=== PATIENT | male | born 1955 | race Caucasian/White ===

== ENCOUNTER 2018-10-19 11:11 | Outpatient (CLI) | payer SELFPAY ==
[2018-10-19 13:26] LABS: BUN 12 mg/dL (7-18); CREATININE 1.15 mg/dL (0.70-1.30); Calcium 9.2 mg/dL (8.5-10.1); Chloride 102 mmol/L (98-107); Cholesterol 238 mg/dL (50-200); Glucose 90 mg/dL (70-100); HDL Cholesterol 34 mg/dL (40-60); LDL CHOLESTEROL 171 mg/dL (<100); Potassium 4.5 mmol/L (3.5-5.1); Sodium 138 mmol/L (136-145); Triglyceride 134 mg/dL (30-150)
== END 2018-10-19 11:31 ==
PROVIDERS: PCP Family Medicine; Visit Provider Family Medicine
DX: I10 Essential (primary) hypertension (principal)
CPT/HCPCS: 36415; 80048; 80061; 83721

== ENCOUNTER 2019-07-12 11:02 | Outpatient (CLI) | payer MEDICARE, SELFPAY ==
[2019-07-12 12:55] LABS: CREATININE 0.99 mg/dL (0.70-1.30); Potassium 3.9 mmol/L (3.5-5.1)
== END 2019-07-12 11:22 ==
PROVIDERS: PCP Family Medicine; Visit Provider Family Medicine
DX: I10 Essential (primary) hypertension (principal)
CPT/HCPCS: 36415; 82565; 84132

== ENCOUNTER 2020-01-14 11:30 | Emergency (ER) | payer MEDICARE, SELFPAY ==
[2020-01-14] VITALS (36 sets, daily range): BP systolic 128–163; BP diastolic 71–90; PULSE 76–110; RESP 7–28; TEMP 36.6–36.8; O2SAT 87–98
--- NOTE | 2020-01-14 11:45 | DI.RAD_ITS ---
EXAM: XR CHEST 2V PA LATERAL CLINICAL HISTORY: fall, lightheaded, ? syncope TECHNIQUE: COMPARISON: No exams were available for comparison FINDINGS: The heart is not enlarged. The lungs are predominantly clear with mild changes of scarring. No pleu ral effusion. No pneumothorax. IMPRESSION: No evidence of acute process.
--- NOTE | 2020-01-14 11:45 | DI.CT_ITS ---
EXAM: CT HEAD WO CLINICAL HISTORY: Fall, trauma, ? syncope TECHNIQUE: COMPARISON: No exams were available for comparison FINDINGS: Noncontrast cranial CT was performed. There is moderate generalized cerebral atrophy. There are pro bable small bilateral lacunar infarcts of the basal ganglia. No evidence of acute intracranial hemor rhage, mass effect, or midline shift. IMPRESSION: No evidence of acute intracranial process.
--- NOTE | 2020-01-14 11:49 | ED.GENADUL_ITS ---
Discharge Plan Disposition Patient Disposition: HOME Condition: Improving Discharge Details Chief Complaint: Dizzy/Sync Clinical Impression: Acute dehydration Primary Care Provider: Tomer Yang ED Provider: Michael Robles Home Meds and New Rx's Prescriptions: No Action amlodipine 5 mg tablet 5 mg PO DAILY Qty: 90 RF: 3 telmisartan-hydrochlorothiazid 80-12.5 mg tablet 1 tab PO DAILY Qty: 90 RF: 3 Discharge Instructions Instructions: Dehydration (ED) Additional Instructions: Please skip 1 dose of your telmisartan/hydrochlorothiazide. We will ask our care management team to make you a follow-up appointment in clinic with Dr. Glez to recheck blood pressure as well as kidney function. Small, frequent sips of fluids to maintain hydration. Return to the emergency department for any acute concern. Medical Decision Making 64-year-old male states he was sitting at his dinner table this morning when he felt lightheaded and then sank to the floor. Unsure if he had true loss of consciousness. There was report of previous episodes in the past but the patient denies this to me. States his been taking his medications as prescribed. He notes that he had loose watery stool this morning. He arrives with a temp of 36.8, pulse 98, normal oxygenation. Orthostatic vital signs: Not positive with blood pressure proximally 140/80. Since June of last year his creatinine is gone from 0.9-1.38 today. Remainder of labs notable for sodium of 135, anion gap of 14.6. Albumin normal and troponin negative. Chest x-ray/CT scan head: NAD/no acute intracranial abnormality. After 1 L of fluid, patient felt improved. Chemistries were rechecked with closure of his gap and normalization of sodium. I will have the patient hold 1 day of his combination telmisartan/hydrochlorothiazide. We will arrange for an outpatient follow-up in clinic to recheck and to ensure renal function returns to normal with his current antihypertensive regimen. ECG Data Attestation: I personally reviewed and interpreted this ECG (s) as follows: Prior ECG tracings: not available for review Interpretation: Normal sinus rhythm with a rate of 96, the QRS is narrow, there is no ST segment elevation, there is note of isolated T wave inversion in lead III. HPI General Mode of arrival: EMS . Date/Time Provider Initiated Documentation: 01/14/20 11:56 . Limitations to Documentation: no limitations . Information obtained by: patient and EMS . History of Present Illness 64 year old M presents to the emergency department with the chief complaint of Near syncope at home, struck head., Quality is described as dull, and is localized to the head. Patient reports no radiation. Patient started experiencing this minute(s) and it has been now resolved. No relieving factors improve symptom(s), No exacerbating factors reported . Patient notes other (Unsure if he had brief loss of consciousness, no chest pain or shortness of breath, denies palpitations. Diarrhea this morning); denies chest pain, nausea/vomiting and shortness of breath. Patient did receive the following treatments prior to arrival, none Related Data Home Medications Medication Instructions Recorded Confirmed amlodipine 5 mg tablet 5 mg PO DAILY #90 tab 04/07/19 01/14/20 telmisartan 80 1 tab PO DAILY #90 tab 04/07/19 01/14/20 mg-hydrochlorothiazide 12.5 mg tablet Previous Rx's Medication Instructions Recorded amlodipine 5 mg tablet 5 mg PO DAILY #90 tab 04/07/19 telmisartan 80 1 tab PO DAILY #90 tab 04/07/19 mg-hydrochlorothiazide 12.5 mg tablet Allergies Allergy/AdvReac Type Severity Reaction Status Date / Time oxycodone Allergy Severe off the Unverified 01/14/20 11:28 wall Penicillins Allergy Severe Unverified 01/14/20 11:28 Sulfa (Sulfonamide Allergy Unknown Unverified 01/14/20 11:28 Antibiotics) General Stated Complaint: Dizzy/Sync KJ: 2 Review of Systems Narrative: Denies to me that he has had previous episodes of syncope. He states his been taking his medications at bedtime. [place] well this morning but had lo ose watery stool. 6 systems reviewed and otherwise negative. [facility] Medical History Essential hypertension (Acute) Family History Mother Neoplasm BREAST Father Neoplasm PROSTATE Sister Neoplasm HIPS Sister Heart murmur Neoplasm BREAST Grandmother Heart disease Stroke Social History Smoking/Tobacco Use Status: Never Drug use: Rarely Substance use type: marijuana Do you feel safe at home: Yes Do you feel safe in your relationship?: Yes Exam Narrative Exam Narrative: GEN: awake, alert, oriented 3. Pleasant, well groomed, interactive. HEAD: Normocephalic, abrasions left vertex, no scalp laceration ENT: Mucous membranes moist, nasal bridge abrasion, no midface instability or tenderness, oropharynx unremarkable, External ear exam unremarkable EYES: PERRL, EOMI NECK: Full ROM, no JAMIE, no menigismus CHEST/RESP: Nontender, clear to auscultation bilateral, no wheeze/rhonchi/rales CARDIOVASCULAR: RRR, no murmur, rub nicolas. 2+ Rad pulse bilateral ABDOMEN: Soft, nontender, no mass. +Bowel sounds EXT: Full ROM, no edema, no rash Neuro: Grossly normal neurologic exam, conversant, interactive. Psych: Speech fluent, thoughts congruent, affect normal Course Vital Signs Vital signs: Vital Signs Temperature 36.8 C 01/14/20 11:32 Pulse 98 H 01/14/20 11:32 Respiratory Rate 20 01/14/20 11:32 Pulse Oximetry 94 L 01/14/20 11:32 Temperature 36.8 C 01/14/20 11:32 Temperature Source Temporal Artery Scan 01/14/20 11:32 Pulse 98 H 01/14/20 11:32 Respiratory Rate 20 01/14/20 11:32 Respiratory Effort Non-Labored 01/14/20 11:37 Blood Pressure Position Supine 01/14/20 11:32 Pulse Oximetry 94 L 01/14/20 11:32 Oxygen Delivery Method Tent 01/14/20 11:32 Oxygen Flow Rate 0 01/14/20 11:32 Pain Level 0 01/14/20 11:32
[2020-01-14] MEDS: Normal Saline 500 ML IV ×2 (11:55→12:30)
[2020-01-14 12:10] LABS: Abs Immature Grans 0.03 k/cumm (0.0-0.09); Absolute Basophil Count 0.01 k/cumm (0.0-0.2); Absolute Eosinophil Count 0.06 k/cumm (0.0-0.7); Absolute Lymphocyte Count 1.02 k/cumm (1.2-3.4); Absolute Monocyte Count 0.49 k/cumm (0.11-0.7); Absolute Neutrophil Count 4.93 k/cumm (1.2-6.7); Basophils % 0.2; Eosinophils % 0.9; HCT 42.3 % (40.0-50.0); HGB 14.1 g/dL (13.5-17.5); Immature Grans % 0.5 %; Lymphocytes % 15.6; Mean Corp. HGB Concentration 33.3 g/dL (32.0-36.0); Mean Corpuscular Hemoglobin 29.9 pg (27.0-33.0); Mean Corpuscular Volume 89.8 fL (80-95); Mean Platelet Volume 8.2 fL (8.0-11.0); Monocytes % 7.5; Neutrophils % 75.3; Platelet Count 373 x1000/uL (130-400); RBC 4.71 m/cumm (4.50-6.00); RBC Distribution Width 13.8 % (11.8-14.1); White Blood Cell Count 6.54 k/cumm (4.4-10.8)
[2020-01-14 12:25] LABS: ALT 33 U/L (16-63); AST 37 U/L (15-37); Albumin 3.7 g/dL (3.4-5.0); Alkaline Phosphatase 85 U/L (46-116); Anion Gap 14.6 mmol/L (3-11); BUN 14 mg/dL (7-18); Bilirubin, Total 0.6 mg/dL (0.2-1.0); CO2 21.4 mmol/L (21.0-32.0); CREATININE 1.38 mg/dL (0.70-1.30); Calcium 9.1 mg/dL (8.5-10.1); Chloride 99 mmol/L (98-107); Estimated GFR 51.71 (mL/min/1.73m2); Glucose 182 mg/dL (74-106); Magnesium 2.2 mg/dL (1.8-2.4); Potassium 4.2 mmol/L (3.5-5.1); Sodium 135 mmol/L (136-145); Total Protein 7.9 g/dL (6.4-8.2)
[2020-01-14 12:29] LABS: Troponin I < 0.05 ng/Ml (<0.06)
--- NOTE | 2020-01-14 13:10 | DI.VRAD_ITS ---
PROCEDURE INFORMATION: Exam: CT Head Without Contrast Exam date and time: 01/14/2020 11:50 AM Age: 64 years old Clinical indication: Injury or trauma; Fall; Dizziness and syncope and collapse TECHNIQUE: Imaging protocol: Computed tomography of the head without contrast. COMPARISON: No relevant prior studies available. FINDINGS: Brain: Central and cortical brain atrophy evident, appropriate for patient age. There is nonspecific periventricular low attenuation, likely microangiopathic disease. No acute intracranial hemorrhage. Ventricles: Normal. No ventriculomegaly. Bones/joints: Unremarkable. No acute fracture. Sinuses: Visualized sinuses are unremarkable. No fluid levels. Mastoid air cells: Visualized mastoid air cells are well aerated. Soft tissues: Unremarkable. IMPRESSION: No acute intracranial abnormality. Dictated and Authenticated by: Ilsa Christopher MD. Ordering:BREE Rodriguez MD
--- NOTE | 2020-01-14 13:12 | DI.VRAD_ITS ---
PROCEDURE INFORMATION: Exam: XR Chest, 2 Views Exam date and time: 01/14/2020 12:17 PM Age: 64 years old Clinical indication: Other: Fall, lightheaded, syncope ? TECHNIQUE: Imaging protocol: XR of the chest Views: 2 views. COMPARISON: No relevant prior studies available. FINDINGS: Lungs: Unremarkable. No consolidation. Pleural space: Unremarkable. No pleural effusion. No pneumothorax. Heart/Mediastinum: Unremarkable. No cardiomegaly. Bones/joints: Unremarkable. IMPRESSION: No acute findings. Dictated and Authenticated by: Ilsa Christopher MD. Ordering:BREE Rodriguez MD
[2020-01-14] MEDS: Acetaminophen 500 MG TAB 1000 MG PO (13:46)
[2020-01-14 13:57] LABS: BUN 14 mg/dL (7-18); CREATININE 1.14 mg/dL (0.70-1.30); Calcium 8.2 mg/dL (8.5-10.1); Chloride 103 mmol/L (98-107); Glucose 131 mg/dL (74-106); Potassium 3.8 mmol/L (3.5-5.1); Sodium 137 mmol/L (136-145)
--- NOTE | 2020-01-14 15:02 | NUR.NOTE ---
Nursing Note: Referral faxed to PCP for follow up. Virgen Christian.
== END 2020-01-14 14:53 | disposition home or self-care (01) ==
PROVIDERS: Emergency Provider Emergency Medicine; PCP Family Medicine
DX: E86.0 Dehydration (principal); R19.7 Diarrhea, unspecified; I10 Essential (primary) hypertension
CPT/HCPCS: 36415; 80048; 80053; 93005; 96360; 96361; 99284; 70450; 71046; 83735; 84484; 85025; 93010

== ENCOUNTER 2020-02-06 04:17 | Emergency (ER) | payer MEDICARE, SELFPAY ==
[2020-02-06] VITALS (31 sets, daily range): BP systolic 100–132; BP diastolic 56–95; PULSE 81–125; RESP 10–35; TEMP 37–38.3; O2SAT 86–100
[2020-02-06 05:00] LABS: BE (Venous) -6.8 mmol/L (-3-3); HCO3 (Venous) 18 mmol/L (22-28); O2 Sat (Venous) 91 % (70-80); TCO2 (Venous) 16 mmol/L (22-29); pCO2 (Venous) 27 mm/Hg (34-47); pH (Venous) 7.42 (7.35-7.45); pO2 (Venous) 55 mm/Hg (28-44)
[2020-02-06 05:04] LABS: Lactate 9.8 mmol/L (0.6-1.4)
[2020-02-06] MEDS: Normal Saline 500 ML IV (05:05)
--- NOTE | 2020-02-06 05:05 | DI.RAD_ITS ---
EXAM: XR PORTABLE CHEST AP CLINICAL HISTORY: intubation TECHNIQUE: 2D digital imaging was performed. COMPARISON: No exams were available for comparison FINDINGS: MEDIASTINUM: Normal. HEART: Normal. PULMONARY VASCULATURE: Normal. LUNGS: There are infiltrates seen in the lower lobes bilaterally. PLEURAL SPACE: No pleural effusion or pneumothorax. BONE:Degenerative changes are seen in the spine. OTHER FINDINGS:Tip of the endotracheal tube is 4.6 cm above the rm. IMPRESSION: Bilateral basilar infiltrates. This may represent atelectasis or pneumonia. DATA REPOSITORY: RADIATION DOSE DELIVERED:
[2020-02-06] MEDS: PROPOFOL 1,000 MG/100 ML BTL 9.7 MG (05:06)
[2020-02-06 05:11] LABS: Salicylate < 2.8 mg/dL (2.8-20.0)
[2020-02-06 05:13] LABS: Acetaminophen < 2 ug/mL (10-30); Ammonia 27 umol/L (11-32)
[2020-02-06 05:14] LABS: PTT Activated 36.3 sec (21.0-31.4); Prothrombin Time 10.3 sec (9.3-11.0)
[2020-02-06 05:15] LABS: Abs Immature Grans 0.03 k/cumm (0.0-0.09); Absolute Basophil Count 0.02 k/cumm (0.0-0.2); Absolute Lymphocyte Count 0.52 k/cumm (1.2-3.4); Basophils % 0.3; HCT 34.3 % (40.0-50.0); HGB 12.4 g/dL (13.5-17.5); Immature Grans % 0.4 %; Lymphocytes % 6.9; Mean Corp. HGB Concentration 36.2 g/dL (32.0-36.0); Mean Corpuscular Hemoglobin 29.9 pg (27.0-33.0); Mean Corpuscular Volume 82.7 fL (80-95); Mean Platelet Volume 8.6 fL (8.0-11.0); Monocytes % 11.9; Neutrophils % 80.5; Platelet Count 199 x1000/uL (130-400); RBC 4.15 m/cumm (4.50-6.00); RBC Distribution Width 12.6 % (11.8-14.1); White Blood Cell Count 7.57 k/cumm (4.4-10.8)
[2020-02-06 05:20] LABS: ETHANOL BLOOD < 3.0 mg/dL (<3); NT-proBNP 308 pg/mL (<300); TSH (W/Ref FT4) 0.93 uIU/mL (0.36-3.74)
--- NOTE | 2020-02-06 05:22 | ED.GENADUL_ITS ---
Discharge Plan Disposition Patient Disposition: [facility] Condition: Critical Discharge Details Chief Complaint: Seizure Clinical Impression: Seizure, Acute hyponatremia, Non-ST elevation LA (NSTEMI), Acute respiratory failure, Obtundation, C2 cervical fracture Primary Care Provider: Tomer Yang ED Provider: Igor Noel Home Meds and New Rx's Prescriptions: No Action amlodipine 5 mg tablet 5 mg PO DAILY Qty: 90 RF: 3 telmisartan-hydrochlorothiazid 80-12.5 mg tablet 1 tab PO DAILY Qty: 90 RF: 3 Discharge Data Discharge Date/Time-TO BE ENTERED AT DEPARTURE: 02/06/20 07:27 Medical Decision Making Upon my evaluation, this patient had a high probability of imminent or life-threatening deterioration, which required my direct attention, intervention, and personal management. I have personally provided 75 minutes of critical care time exclusive of time spent on separately billable procedures. Time includes review of laboratory data, radiology results, discussion with consultants, and monitoring for potential decompensation. Interventions were performed as documented. 64-year-old male with a past medical history of hypertension, presents for evaluation of seizure. EMS was contacted when the patient's roommate heard a side, he found him having a seizure in the bathroom. Blood sugar was normal, the patient was given a total of 10 Versed IM, brought to the ED. Upon arrival to the ED patient's GCS was noted to be 3, no airway protection or gag reflex. He was breathing spontaneously. The patient's roommate did note that for the past 2 days both the roommate and the patient had been suffering from a fever and what they assumed was a viral illness. The patient's roommate denies any recent foreign travel or contact with recent immigrants, Travelers, or peoples of [place] or [facility]. The patient's roommate denies any recent travel to high risk countries or high risk areas in the [place], or other areas of noted or significant coronavirus infection. Physical exam shows no signs of significant trauma, poor dentition in the mouth is present, reflexes are intact in the lower extremities, no asterixis. Kernig's is negative, pupils are pinpoint minimally reactive. Differential is broad but includes meningitis, trauma, cardiac, viral infectious etiology, influenza, less likely coronavirus. Will maintain CDC recommended precautions, as the GCS is 3 will intubate and evaluate for other etiologies. 5:15 AM Patient was intubated successfully without complication, chest x-ray shows in place endotracheal tube, there does appear to be infiltrates, I am concerned that this may be secondary to aspiration as was a small amount of vomitus noted in the posterior oropharynx on intubation attempt. EKG demonstrates 3 mm elevation in V2, T wave inversion and mild depression in lead III, both findings are new. Does not meet criterion for STEMI, but certainly concerning for cardiac etiology. Will give rectal aspirin. Cardiology was contacted at [facility], they to are concerned and recommend transfer. Bedside limited cardiac ultrasound demonstrates notable decreased EF, mild to minimal motility throughout the ventricles, mild bulging of the septal wall towards the right ventricle. No evidence of significant pericardial effusion. Tmp Campbell demonstrates temperature of 101 Fahrenheit. 5:45 AM Patient is currently sedated on propofol, remaining stable, [facility] was called initially, influenza testing has returned and is negative. Upon [facility] arrival to the ED they were informed by their incident command center that they are not to be transporting the patient as there is potential that he could have covert 19. I feel that this is notably an extremely unlikely, I did make this known to [facility] staff, transfer center, and [facility] critical care team, however they state that per protocol the safest process would be to transport by ground. [facility] will not be available for quite some time, [facility] is not available for transport, [facility] will transport patient at 640 6:55 AM. Patient's laboratory work-up has started to return, troponin is elevated 0.37, sodium is notably low at 115, patient will be given 100 mL of hypertonic saline over 10 minutes, followed by 100 mL over 1 hour. Unfortunately we are not able to get hypertonic saline immediately here secondary to the time of night, [facility] their bag of hypertonic saline for use. Patient does have a penicillin and sulfa allergy. Differential still does include viral etiology and although his flu test is negative I do feel he may certainly be suffering from influenza. We will give Tamiflu, but in conjunction for concern of potential meningitis as well or encephalitis we will add vancomycin, aztreonam, doxycycline, and acyclovir. However [facility] has accepted the patient under Dr. Prieto, and does not recommend transferring by ground until room confirmation. We will also give 2 g of Keppra. [address] scan results have returned, per virtual radiology CT head demonstrates questionable vascular channels of the C2 body versus a left lateral mass, faint left-sided lateral mass fracture lines cannot be excluded completely. Will maintain C-spine precautions. No evidence of acute intracranial bleed or hemorrhage noted otherwise. CT scan of the chest demonstrates mild there is a consolidation at the bases and posterior right upper lobe which may represent subsegmental atelectasis versus evolving pneumonia or aspiration. Will maintain current plan. Lactate is 9.8, were gently giving fluids especially with the decreased motility noted on bedside echo. We will get urine sodium. 6:53 AM Bed placement has been confirmed, he will now be going directly to the emergency department per [facility]. Patient remains hemodynamically stable on the vent. No indication for pressors at this time, medications are being administered. I have extensively reviewed the treatment plan with the patient. I have addressed all patient concerns at this time. I have also discussed the plan with the admitting physician and they agree with the current assessment and plan and have agreed to assume responsibility for the patient. All parties demonstrate verbal understanding and agreement with our assessment and plan at this time. EKG 4: 41 Rate 98, CT 180, QTc 467, QRS 102, sinus rhythm, 2 to 3 mm of elevation in V2, concerning for to him stoning as well. T wave inversion with 1 mm of depression noted in lead III. No other significant ST elevations or depressions. EKG reviewed with [facility]ology [facility]. FINDINGS: Vertebrae: Faint fracture lines in the left C2 lateral mass not excluded Vascular channels noted in the C2 body and left lateral mass Loss of cervical lordosis is presumably on a degenerative basis. Discs/Spinal canal/Neural foramina: Multilevel central canal and foraminal stenosis most pronounced at C3-C4 and C5-C6 Soft tissues: Unremarkable. Endotracheal tube partially visualized IMPRESSION: Vascular channels in the C2 body and left lateral mass. Faint left-sided lateral mass fracture lines cannot be completely excluded. Comparison with prior images would be helpful. Consider further evaluation with MRI as clinically indicated Multilevel degenerative changes as noted Thank you for allowing us to participate in the care of your patient. Dictated and Authenticated by: Mathew Mendez MD 02/06/2020 6:02 AM Eastern Time ([place] & [place]) FINDINGS: Brain: Mild volume loss No hemorrhage. Mild white matter disease. No mass effect. Ventricles: Normal. No ventriculomegaly. Bones/joints: Unremarkable. No acute fracture. Sinuses: Visualized sinuses are unremarkable. No fluid levels. Mastoid air cells: Visualized mastoid air cells are well aerated. Soft tissues: Left frontal scalp swelling IMPRESSION: No acute intracranial hemorrhage noted FINDINGS: Endotracheal tube tip 3.3 cm above the rm Lungs: Bibasilar and posterior right upper lobe areas of mild consolidation Pleural space: No pneumothorax. No pleural effusion. Heart: Moderate cardiomegaly. No pericardial effusion. Aorta: No aortic aneurysm. Lymph nodes: No enlarged lymph nodes. Bones/joints: Degenerative changes in the spine No acute fracture. Soft tissues: Minimal air in the right anterior chest wall says she slipped clavi in region may be related to central venous catheter attempt IMPRESSION: Endotracheal tube tip 3.3 cm above the rm Mild areas of consolidation at the bases and posterior right upper lobe which may represent subsegmental atelectasis versus evolving areas of pneumonia/aspiration Thank you for allowing us to participate in the care of your patient. Dictated and Authenticated by: Mathew Mendez MD 02/06/2020 6:05 AM Eastern Time ([place] & [place]) HPI General Date/Time Provider Initiated Documentation: 02/06/20 04:28 . HPI Narrative: 64-year-old male with a past medical history of hypertension, presents today by EMS for evaluation after seizure. Per EMS and the patient's roommate he was noted to be seizing 20 minutes prior to EMS arrival. No complaints before hand, no other abnormalities. He was here in the ED recently a few weeks ago, had mild hypertension at that time, mild acute kidney injury, on follow-up with his PCP 1 week ago his labs had normalized and he had a normal exam and an unremarkable visit. Uncertain if the patient has had any travel outside of the country but I doubt. Per EMS they gave initial 5 and then an additional 5 for total of 10 of Versed IM to stop the patient seizing. Per EMS report he was placed in a c-collar, and the patient was out responding to commands but was protecting his airway. Upon arrival patient's GCS was noted to be 3. No other complaints are known history. EMS reports no known trauma. Related Data Home Medications Medication Instructions Recorded Confirmed amlodipine 5 mg tablet 5 mg PO DAILY #90 tab 01/31/20 01/31/20 telmisartan 80 1 tab PO DAILY #90 tab 01/31/20 01/31/20 mg-hydrochlorothiazide 12.5 mg tablet Previous Rx's Medication Instructions Recorded amlodipine 5 mg tablet 5 mg PO DAILY #90 tab 01/31/20 telmisartan 80 1 tab PO DAILY #90 tab 01/31/20 mg-hydrochlorothiazide 12.5 mg tablet Allergies Allergy/AdvReac Type Severity Reaction Status Date / Time oxycodone Allergy Severe off the Unverified 02/06/20 04:59 wall Penicillins Allergy Severe Unverified 02/06/20 04:59 Sulfa (Sulfonamide Allergy Unknown Unverified 02/06/20 04:59 Antibiotics) General Stated Complaint: Seizure KJ: 2 Review of Systems All systems reviewed & are unremarkable except as noted in HPI and below PFSH Family History Mother Neoplasm BREAST Father Neoplasm PROSTATE Sister Neoplasm HIPS Sister Heart murmur Neoplasm BREAST Grandmother Heart disease Stroke Social History Smoking/Tobacco Use Status: Never Drug use: Rarely Substance use type: marijuana Do you feel safe at home: Yes Do you feel safe in your relationship?: Yes Exam Narrative Exam Narrative: 1.Const: Well-nourished, Well-developed, appearing stated age 2.Eyes: Pupils pinpoint bilaterally, minimally reactive, no conjunctival injection, and symmetrical lids. 3.ENT: Atraumatic external nose and ears. Moist MM. Neck: Symmetric, trachea midline, No thyromegaly. Patient is in C-spine precautions, poor dentition throughout. 4.CVS: +S1/S2, No murmurs or gallops. Peripheral pulses 2+ and equal in all extremities. Brisk capillary refill in all extremities. 5.RESP: Rapid respirations, unlabored respiratory effort. Clear to auscultation bilaterally. Questionable crackles in bases 6.GI: Soft, Nontender/Nondistended, No hepatosplenomegaly. No guarding or rebound. 7.MSK: Normocephalic/Atraumatic, Extremities w/o deformity or ttp No cyanosis or clubbing, no purposeful movements. 8.Skin: Warm, Dry. No rashes or lesions. No signs of significant trauma 9.Neuro: No purposeful movements, GCS of 3, spontaneous respirations are present, no gag reflex. +2 patellar reflexes bilaterally, negative Kernig sign, Brudzinski's not checked secondary to C-spine precautions Course Vital Signs Vital signs: Vital Signs Temperature 37 C 02/06/20 04:17 Pulse 101 H 02/06/20 04:17 Respiratory Rate 30 H 02/06/20 04:17 Blood Pressure 107/62 02/06/20 04:17 Pulse Oximetry 94 L 02/06/20 04:17 Temperature 37 C 02/06/20 04:17 Temperature Source Skin 02/06/20 04:17 Pulse 97 H 02/06/20 05:00 Pulse 120 H 02/06/20 05:01 Respiratory Rate 10 L 02/06/20 05:01 Respiratory Depth Deep 02/06/20 04:26 Respiratory Pattern Tachypnea 02/06/20 04:26 Blood Pressure 122/57 L 02/06/20 05:00 Blood Pressure Mean 73 02/06/20 05:00 Pulse Oximetry 95 02/06/20 05:01 Respiratory End-tidal CO2 20 02/06/20 05:01 Oxygen Delivery Method Non-Rebreather 02/06/20 04:17 Oxygen Flow Rate 15 02/06/20 04:17 Lab/Test Results Lab/Test Results: 02/06/20 04:30 Blood Blood Culture - Pending 02/06/20 04:30 Blood Blood Culture - Pending 02/06/20 04:36 Nasopharynx Influenza Types A,B Antigen - Pending 02/06/20 04:36 Urine - Bladder Aspirate Urine Culture - Pending Laboratory Tests Range/Units 02/06/20 02/06/20 02/06/20 04:25 04:25 04:25 PT (9.3-11.0) sec INR (0.9-1.1) APTT (21.0-31.4) sec VBG pH (7.35-7.45) 7.42 VBG pCO2 (34-47) mm/Hg 27 L VBG pO2 (28-44) mm/Hg 55 H VBG HCO3 (22-28) mmol/L 18 L VBG Total CO2 (22-29) mmol/L 16 L VBG O2 Saturation (70-80) % 91 H VBG Base Excess (-3-3) mmol/L -6.8 L Lactate (0.6-1.4) mmol/L Ammonia (11-32) umol/L 27 Salicylates (2.8-20.0) mg/dL < 2.8 Acetaminophen (10-30) ug/mL < 2 Range/Units 02/06/20 02/06/20 04:25 04:25 PT (9.3-11.0) sec 10.3 INR (0.9-1.1) 1.0 APTT (21.0-31.4) sec 36.3 H VBG pH (7.35-7.45) VBG pCO2 (34-47) mm/Hg VBG pO2 (28-44) mm/Hg VBG HCO3 (22-28) mmol/L VBG Total CO2 (22-29) mmol/L VBG O2 Saturation (70-80) % VBG Base Excess (-3-3) mmol/L Lactate (0.6-1.4) mmol/L 9.8 H* Ammonia (11-32) umol/L Salicylates (2.8-20.0) mg/dL Acetaminophen (10-30) ug/mL Procedures Intubation Time out performed: Yes sedative: Etomidate Mg Given: 20 paralytic: Rocuronium Mg Given: 100 Laryngoscope: fiberoptic video scope ET Tube Size: 7.5 ET Tube Uncuffed: Yes Tube Secured Depth (cm): 22 Tube Secured Location: teeth Tube Placement Confirmation: visualized tube passing through cords, equal breath sounds bilaterally and no breath sounds over epigastrum Patient Tolerated Procedure: well Intubation Complications: none Additional Comments: During intubation process there was a small amount of vomitus noted in the posterior oropharynx, concern for previous vomiting versus aspiration.
[2020-02-06 05:23] LABS: Bilirubin Negative (Negative); Blood Trace-intact (Negative); Clarity Clear (Clear); Glucose Negative (Negative); Ketones Negative (Negative); Leukocyte Esterase Negative (Negative); Nitrite Negative (Negative); Specific Gravity 1.025 (1.005-1.025); Urobilinogen 0.2 EU/dL (Up TO 0.2)
--- NOTE | 2020-02-06 05:23 | DI.VRAD_ITS ---
PROCEDURE INFORMATION: Exam: XR Chest, 1 View Exam date and time: 02/06/2020 5:09 AM Age: 64 years old Clinical indication: Device placement; Ett placement (vent status); Patient HX: Post intubation TECHNIQUE: Imaging protocol: XR of the chest Views: 1 view. COMPARISON: CR XR CHEST 2V PA LATERAL 01/14/2020 12:17 PM FINDINGS: Mildly limited due to rotation Endotracheal tube tip 4.6 cm above the rm. Mild peribronchial thickening/interstitial prominence and question vague right-sided middle lobe opacity. No significant pleural effusion or evidence for pneumothorax The heart, mediastinal and osseous structures are grossly stable IMPRESSION: Endotracheal tube tip 4.6 cm above the rm Question vague right middle lobe opacity Dictated and Authenticated by: Mathew Mendez MD. Ordering:KAYLA Costa MD
[2020-02-06 05:25] LABS: Bacteria Rare HPF (Negative); C & S Indicated? No; Casts Negative LPF (Negative); Crystals Negative HPF (Negative); Epithelial Cells Rare HPF (Negative); Mucus Negative (Negative); RBC 0-2 HPF (0-2); WBC Negative HPF (0-5)
[2020-02-06 05:28] LABS: ALT 24 U/L (16-63); AST 41 U/L (15-37); Albumin 2.7 g/dL (3.4-5.0); Alkaline Phosphatase 58 U/L (46-116); Anion Gap 20.2 mmol/L (3-11); BUN 10 mg/dL (7-18); Bilirubin, Total 0.5 mg/dL (0.2-1.0); CO2 16.8 mmol/L (21.0-32.0); Calcium 7.3 mg/dL (8.5-10.1); Chloride 78 mmol/L (98-107); Glucose 209 mg/dL (74-106); Magnesium 1.6 mg/dL (1.8-2.4); Potassium 3.6 mmol/L (3.5-5.1); Total Protein 6.5 g/dL (6.4-8.2)
[2020-02-06 05:28] LABS: *AMPHETAMINES SCREEN URINE Negative (Negative); *BARBITURATES SCREEN URINE Negative (Negative); *BENZODIAZEPINES SCREEN URINE Negative (Negative); Cannabinoids THC Negative (Negative); Cocaine Screen,Urine Negative (Negative); METHADONE URINE SCREEN Negative (Negative); OPIATES URINE SCREEN Negative (Negative)
[2020-02-06 05:29] LABS: Diff Comment Agrees w/ Instrument
[2020-02-06 05:31] LABS: Tricyclic Antidepressants Negative (Negative)
[2020-02-06 05:32] LABS: Sodium 115 mmol/L (136-145)
[2020-02-06 05:33] LABS: Troponin I 0.37 ng/Ml (<0.06)
--- NOTE | 2020-02-06 05:45 | DI.CT_ITS ---
EXAM: CT HEAD CERVICAL SPINE WO CLINICAL HISTORY: altered, seizure, no hx of seizures. TECHNIQUE: Imaging Protocol: Axial computed tomography images with coronal and sagittal reformatted images were created and reviewed COMPARISON: No exams were available for comparison FINDINGS: CT Head: Ventricles and Extra axial spaces: There is prominence of the ventricles and sulci consistent with th e patient's age. Hemorrhage: None. Cerebral parenchyma: Areas of decreased attenuation are present in the white matter consistent with s mall vessel ischemic disease. There are old basal gangliar lacunar infarcts present. Midline shift: None. Brainstem/Cerebellum: Normal. Calvarium: Normal. Visualized Paranasal sinuses/Mastoids: There is opacification of several ethmoid air cells bilaterall y. There is mucosal thickening seen in the left sphenoid sinus and the maxillary sinuses. Mastoid a ir cells are well pneumatized. Soft Tissues: There is a scalp hematoma overlying the left frontal bone. CT Cervical Spine: Bones: There is normal alignment of the C1-C2 vertebral bodies. Lucency seen through the C2 vertebra l body and left lateral mass likely reflect vascular channels. Nondisplaced fractures cannot be enti rely excluded. No other fractures or subluxations are seen in the cervical spine. There are moderat e degenerative changes present throughout the cervical spine. Soft Tissues: Unremarkable. There is an endotracheal tube partially visualized. Lung Apices: Clear. IMPRESSION: 1. No acute intracranial process. 2. Lucency seen through the C2 vertebral body and left lateral mass. These likely reflect vascular c hannels. Fractures cannot be entirely excluded. Please correlate clinically. If there is continued concern, an MRI or repeat CT scan may be considered. RADIATION DOSE DELIVERED: DATA REPOSITORY: All CT scans at this facility are submitted to the National Radiology Data Registry (NRDR) Dose Index Registry (DIR) with the [employer] (A[employer]). RADIATION OPTIMIZATION: All CT scans at this facility use at least one of these dose optimization te chniques: automated exposure control; mA and/or kV adjustment per patient size (includes targeted exa ms where dose is matched to clinical indication); or iterative reconstruction.
--- NOTE | 2020-02-06 05:45 | DI.CT_ITS ---
EXAM: CT CHEST WO CLINICAL HISTORY: seizure, infiltrates, intubated. TECHNIQUE: Imaging protocol: Axial computed tomography images were obtained and coronal and sagittal reformatted images were created and reviewed. COMPARISON: XR PORTABLE CHEST AP from 02/06/2020 FINDINGS: Tracheobronchial tree: There is an endotracheal tube in place. The tip of the tube is 3.5 cm above t he rm. Mediastinum and Nivia: No dominant adenopathy or fluid collection. Pulmonary parenchyma: There are areas of consolidation involving the right upper lobe and both lower lobes. No architectural distortion. Pleura: No effusion or pneumothorax. Heart: Mild cardiomegaly. Mild coronary artery calcifications. No significant pericardial effusion. Aorta: Thoracic aorta non-dilated. Atherosclerosis. Upper abdomen: Incompletely imaged right renal cyst. Lymph nodes: Within normal limits. Bones:Degenerative changes. Tubes, Catheters, and Lines: Endotracheal tube is present. The tip of the tube is 3.5 cm above the c lima. IMPRESSION: 1. Tip of the endotracheal tube is 3.5 cm above the rm. 2. Bilateral lower lobe and right upper lobe consolidations. This may represent pneumonia or atelect asis. DATA REPOSITORY: All CT scans at this facility are submitted to the National Radiology Data Registry (NRDR) Dose Index Registry (DIR) with the [employer] (ACR). RADIATION OPTIMIZATION: All CT scans at this facility use at least one of these dose optimization te chniques: automated exposure control; mA and/or kV adjustment per patient size (includes targeted exa ms where dose is matched to clinical indication); or iterative reconstruction.
--- NOTE | 2020-02-06 06:02 | DI.VRAD_ITS ---
PROCEDURE INFORMATION: Exam: CT Head Without Contrast Exam date and time: 02/06/2020 5:30 AM Age: 64 years old Clinical indication: Altered mental status/memory loss; Other: Not specified; Patient HX: AMS, seizure, no HX seizure TECHNIQUE: Imaging protocol: Computed tomography of the head without contrast. Radiation optimization: All CT scans at this facility use at least one of these dose optimization techniques: automated exposure control; mA and/or kV adjustment per patient size (includes targeted exams where dose is matched to clinical indication); or iterative reconstruction. COMPARISON: CT HEAD WO 01/14/2020 12:16 PM FINDINGS: Brain: Mild volume loss No hemorrhage. Mild white matter disease. No mass effect. Ventricles: Normal. No ventriculomegaly. Bones/joints: Unremarkable. No acute fracture. Sinuses: Visualized sinuses are unremarkable. No fluid levels. Mastoid air cells: Visualized mastoid air cells are well aerated. Soft tissues: Left frontal scalp swelling IMPRESSION: No acute intracranial hemorrhage noted PROCEDURE INFORMATION: Exam: CT Cervical Spine Without Contrast Exam date and time: 02/06/2020 5:30 AM Age: 64 years old Clinical indication: Altered mental status/memory loss; Other: Not specified; Patient HX: AMS, seizure, no HX seizure TECHNIQUE: Imaging protocol: Computed tomography images of the cervical spine without contrast. Radiation optimization: All CT scans at this facility use at least one of these dose optimization techniques: automated exposure control; mA and/or kV adjustment per patient size (includes targeted exams where dose is matched to clinical indication); or iterative reconstruction. COMPARISON: CT HEAD WO 01/14/2020 12:16 PM FINDINGS: Vertebrae: Faint fracture lines in the left C2 lateral mass not excluded Vascular channels noted in the C2 body and left lateral mass Loss of cervical lordosis is presumably on a degenerative basis. Discs/Spinal canal/Neural foramina: Multilevel central canal and foraminal stenosis most pronounced at C3-C4 and C5-C6 Soft tissues: Unremarkable. Endotracheal tube partially visualized IMPRESSION: Vascular channels in the C2 body and left lateral mass. Faint left-sided lateral mass fracture lines cannot be completely excluded. Comparison with prior images would be helpful. Consider further evaluation with MRI as clinically indicated Multilevel degenerative changes as noted Dictated and Authenticated by: Mathew Mendez MD. Ordering:KAYLA Costa MD
--- NOTE | 2020-02-06 06:02 | NUR.NOTE ---
Nursing Note: 0455: RT at bedside 0500: Etomidate 20 MG IV Push 0501: Rocuronium 100 mg IV push 0501: Pt sats 98% 0503: 7.5 ET tube placed by Dr Noel. 20 cm at teeth secured 0505: Place on Vent by RT 0506: Propofol 9.4 ml/hr IV per pump started 0509: Radiology at bedside for portable chest xray 0521: To CT per cart with RT and 2 RNs 0550: Return to room 2
--- NOTE | 2020-02-06 06:05 | DI.VRAD_ITS ---
PROCEDURE INFORMATION: Exam: CT Chest Without Contrast Exam date and time: 02/06/2020 5:37 AM Age: 64 years old Clinical indication: Other: Seizure, infiltrates, intubated TECHNIQUE: Imaging protocol: Computed tomography of the chest without contrast. Radiation optimization: All CT scans at this facility use at least one of these dose optimization techniques: automated exposure control; mA and/or kV adjustment per patient size (includes targeted exams where dose is matched to clinical indication); or iterative reconstruction. COMPARISON: CR XR PORTABLE CHEST AP 02/06/2020 5:06 AM FINDINGS: Endotracheal tube tip 3.3 cm above the rm Lungs: Bibasilar and posterior right upper lobe areas of mild consolidation Pleural space: No pneumothorax. No pleural effusion. Heart: Moderate cardiomegaly. No pericardial effusion. Aorta: No aortic aneurysm. Lymph nodes: No enlarged lymph nodes. Bones/joints: Degenerative changes in the spine No acute fracture. Soft tissues: Minimal air in the right anterior chest wall says she slipped clavi in region may be related to central venous catheter attempt IMPRESSION: Endotracheal tube tip 3.3 cm above the rm Mild areas of consolidation at the bases and posterior right upper lobe which may represent subsegmental atelectasis versus evolving areas of pneumonia/aspiration Dictated and Authenticated by: Mathew Mendez MD. Ordering:KAYLA Costa MD
--- NOTE | 2020-02-06 06:21 | NUR.NOTE ---
Nursing Note: 0600: Hypertonic Saline 100 mls given over 10 minutes. 0610: Hypertonic Saline started at 100 ml/hour.
[2020-02-06 06:30] LABS: Sodium, Urine 37 mmol/L
[2020-02-06] MEDS: DOXYCYCLINE 100 MG in Normal Saline 100 ML IVPB (06:39)
[2020-02-06] MEDS: Aspirin 300 MG SUPP PR (06:40)
[2020-02-06] MEDS: levETIRAcetam 2,000 MG in Normal Saline 100 ML 400 MG IVPB (06:47)
--- NOTE | 2020-02-06 06:51 | NUR.NOTE ---
Nursing Note: ABG drawn by Dr Noel and sent to lab
[2020-02-06 06:58] LABS: HCO3 24 mmol/L (22-28); pCO2 39 mmHg (34-47); pO2 66 mmHg (83-108); sO2 94 % (94-98); tCO2 22 mmol/L (22-29)
[2020-02-06 07:01] LABS: Site Left Radial
[2020-02-06 07:03] LABS: FIO2 70% %
[2020-02-06] MEDS: VANCOMYCIN 1,300 MG in Normal Saline 500 ML 333.3333 MG IVPB (07:15)
== END 2020-02-06 07:27 | disposition short-term general hospital (02) ==
PROVIDERS: Emergency Provider Student in an Organized Health Care Education/Training Program; PCP Family Medicine
DX: I21.4 Non-ST elevation (NSTEMI) myocardial infarction (principal); J96.00 Acute respiratory failure, unspecified whether with hypoxia or hypercapnia; R93.7 Abnormal findings on diagnostic imaging of other parts of musculoskeletal system; E87.1 Hypo-osmolality and hyponatremia; R56.9 Unspecified convulsions; R40.2432 Glasgow coma scale score 3-8, at arrival to emergency department; I10 Essential (primary) hypertension
CPT/HCPCS: 31500; 36415; 51702; 71250; 80053; 80307; 82805; 87040; 87449; 93005; 96361; 96365; 96366; 96368; 96375; 99291; 99292; 36600; 70450; 71045; 72125; 80320; 80329; 81003; 81015; 82140; 83605; 83735; 83880; 84300; 84443; 84484; 85025; 85610; 85730; 87086; 93010; J1953

== ENCOUNTER 2020-02-21 09:19 | Outpatient (REF) | payer MEDICARE, SELFPAY ==
[2020-02-21 10:06] LABS: ALT 145 U/L (16-63); AST 96 U/L (15-37); Abs Immature Grans 0.03 k/cumm (0.0-0.09); Absolute Basophil Count 0.03 k/cumm (0.0-0.2); Absolute Eosinophil Count 0.06 k/cumm (0.0-0.7); Absolute Lymphocyte Count 1.72 k/cumm (1.2-3.4); Absolute Monocyte Count 1.14 k/cumm (0.11-0.7); Absolute Neutrophil Count 4.76 k/cumm (1.2-6.7); Albumin 2.9 g/dL (3.4-5.0); Alkaline Phosphatase 113 U/L (46-116); Anion Gap 10.4 mmol/L (3-11); BUN 17 mg/dL (7-18); Basophils % 0.4; Bilirubin, Total 0.6 mg/dL (0.2-1.0); CO2 25.6 mmol/L (21.0-32.0); CREATININE 1.28 mg/dL (0.70-1.30); Calcium 9.1 mg/dL (8.5-10.1); Chloride 95 mmol/L (98-107); Eosinophils % 0.8; Glucose 156 mg/dL (74-106); HCT 33.4 % (40.0-50.0); HGB 10.8 g/dL (13.5-17.5); Immature Grans % 0.4 %; Lymphocytes % 22.2; Magnesium 1.9 mg/dL (1.8-2.4); Mean Corp. HGB Concentration 32.3 g/dL (32.0-36.0); Mean Corpuscular Hemoglobin 29.9 pg (27.0-33.0); Mean Corpuscular Volume 92.5 fL (80-95); Mean Platelet Volume 8.5 fL (8.0-11.0); Monocytes % 14.7; Neutrophils % 61.5; RBC 3.61 m/cumm (4.50-6.00); RBC Distribution Width 14.5 % (11.8-14.1); Sodium 131 mmol/L (136-145); Total Protein 7.7 g/dL (6.4-8.2); White Blood Cell Count 7.74 k/cumm (4.4-10.8)
[2020-02-21 10:51] LABS: Diff Comment PLT Morph Reviewed; Platelet Count 823 x1000/uL (130-400)
[2020-02-21 10:52] LABS: RBC Morphology Normal
[2020-02-21 12:43] LABS: HCT 31.1 % (40.0-50.0); HGB 9.9 g/dL (13.5-17.5); Mean Corp. HGB Concentration 31.8 g/dL (32.0-36.0); Mean Corpuscular Hemoglobin 29.5 pg (27.0-33.0); Mean Corpuscular Volume 92.6 fL (80-95); Mean Platelet Volume 8.5 fL (8.0-11.0); RBC 3.36 m/cumm (4.50-6.00); RBC Distribution Width 14.3 % (11.8-14.1); White Blood Cell Count 7.72 k/cumm (4.4-10.8)
[2020-02-21 12:51] LABS: Platelet Count 767 x1000/uL (130-400)
[2020-02-21 12:52] LABS: C-Reactive Protein 1.77 mg/dL (0.0-0.3)
[2020-02-21 13:35] LABS: ESR 118 mm/hr (1-20)
[2020-02-21 13:42] LABS: Ferritin 1599 ng/mL (26-388)
[2020-02-22 11:07] LABS: Iron 29 ug/dL (65-175); Total Iron Binding Capacity 229 ug/dL (250-450); Transferrin Sat 13 % (20-55)
== END 2020-02-21 09:39 ==
LOC: LBN 09:19
PROVIDERS: PCP Family Medicine; Visit Provider Family Medicine
DX: I42.9 Cardiomyopathy, unspecified (principal); J18.9 Pneumonia, unspecified organism; D64.9 Anemia, unspecified; D69.6 Thrombocytopenia, unspecified
CPT/HCPCS: 80053; 85027; 85652; 82728; 83540; 83550; 83735; 85025; 86140

== ENCOUNTER 2020-02-23 12:23 | Outpatient (REF) | payer MEDICARE, SELFPAY ==
[2020-02-23 12:41] LABS: Abs Immature Grans 0.04 k/cumm (0.0-0.09); Absolute Basophil Count 0.03 k/cumm (0.0-0.2); Absolute Eosinophil Count 0.04 k/cumm (0.0-0.7); Absolute Lymphocyte Count 1.78 k/cumm (1.2-3.4); Absolute Monocyte Count 1.56 k/cumm (0.11-0.7); Absolute Neutrophil Count 5.41 k/cumm (1.2-6.7); Basophils % 0.3; Eosinophils % 0.5; HCT 31.9 % (40.0-50.0); HGB 10.4 g/dL (13.5-17.5); Immature Grans % 0.5 %; Lymphocytes % 20.1; Mean Corp. HGB Concentration 32.6 g/dL (32.0-36.0); Mean Corpuscular Hemoglobin 29.8 pg (27.0-33.0); Mean Corpuscular Volume 91.4 fL (80-95); Mean Platelet Volume 8.3 fL (8.0-11.0); Monocytes % 17.6; RBC 3.49 m/cumm (4.50-6.00); RBC Distribution Width 13.8 % (11.8-14.1); Reticulocyte 2.8 % (0.5-2.4); White Blood Cell Count 8.86 k/cumm (4.4-10.8)
[2020-02-23 12:47] LABS: ALT 136 U/L (16-63); AST 79 U/L (15-37); Albumin 2.9 g/dL (3.4-5.0); Alkaline Phosphatase 117 U/L (46-116); Anion Gap 7.5 mmol/L (3-11); BUN 16 mg/dL (7-18); Bilirubin, Total 0.4 mg/dL (0.2-1.0); CO2 27.5 mmol/L (21.0-32.0); CREATININE 1.21 mg/dL (0.70-1.30); Calcium 9.1 mg/dL (8.5-10.1); Chloride 93 mmol/L (98-107); Glucose 114 mg/dL (74-106); Potassium 4.8 mmol/L (3.5-5.1); Sodium 128 mmol/L (136-145); Total Protein 7.4 g/dL (6.4-8.2)
[2020-02-23 13:00] LABS: Diff Comment Agrees w/ Instrument; Platelet Count 828 x1000/uL (130-400); RBC Morphology Normal
[2020-02-23 13:57] LABS: Calculated LDL 77 mg/dL (<100); Cholesterol 148 mg/dL (<200); HDL Cholesterol 25 mg/dL (40-60); Triglyceride 234 mg/dL (<150); Vitamin B12 490 pg/mL (193-986)
[2020-02-23 14:00] LABS: Folate > 20.0 ng/mL (8.6-20.0)
== END 2020-02-23 12:43 ==
LOC: LBN 12:23
PROVIDERS: PCP Family Medicine; Visit Provider Family Medicine
DX: D47.3 Essential (hemorrhagic) thrombocythemia (principal); I25.10 Atherosclerotic heart disease of native coronary artery without angina pectoris
CPT/HCPCS: 80053; 80061; 82607; 82746; 85025; 85045

== ENCOUNTER 2020-02-24 14:37 | Outpatient (REF) | payer MEDICARE, SELFPAY ==
[2020-02-24 16:02] LABS: Sodium 131 mmol/L (136-145)
== END 2020-02-24 14:57 ==
LOC: NCHCN 14:37
PROVIDERS: PCP Family Medicine; Visit Provider Family Medicine
DX: E87.1 Hypo-osmolality and hyponatremia (principal)
CPT/HCPCS: 84295

== ENCOUNTER 2020-02-27 10:14 | Outpatient (REF) | payer MEDICARE, SELFPAY ==
[2020-02-27 11:11] LABS: Abs Immature Grans 0.03 k/cumm (0.0-0.09); Absolute Basophil Count 0.04 k/cumm (0.0-0.2); Absolute Eosinophil Count 0.28 k/cumm (0.0-0.7); Absolute Lymphocyte Count 1.67 k/cumm (1.2-3.4); Absolute Monocyte Count 1.26 k/cumm (0.11-0.7); Absolute Neutrophil Count 4.31 k/cumm (1.2-6.7); Anion Gap 10.5 mmol/L (3-11); BUN 14 mg/dL (7-18); Basophils % 0.5; CO2 25.5 mmol/L (21.0-32.0); Calcium 9.4 mg/dL (8.5-10.1); Chloride 99 mmol/L (98-107); Eosinophils % 3.7; Glucose 155 mg/dL (74-106); HCT 31.2 % (40.0-50.0); Immature Grans % 0.4 %; Mean Corp. HGB Concentration 32.1 g/dL (32.0-36.0); Mean Corpuscular Volume 93.7 fL (80-95); Mean Platelet Volume 8.2 fL (8.0-11.0); Monocytes % 16.6; Neutrophils % 56.8; Platelet Count 725 x1000/uL (130-400); Potassium 4.6 mmol/L (3.5-5.1); RBC 3.33 m/cumm (4.50-6.00); Sodium 135 mmol/L (136-145); White Blood Cell Count 7.59 k/cumm (4.4-10.8)
[2020-02-27 12:10] LABS: Diff Comment PLT Morph Reviewed; RBC Morphology Normal
== END 2020-02-27 10:34 ==
LOC: LBN 10:14
PROVIDERS: PCP Family Medicine; Visit Provider Family Medicine
DX: D47.3 Essential (hemorrhagic) thrombocythemia (principal)
CPT/HCPCS: 80048; 85025

== ENCOUNTER 2020-03-01 03:56 | Emergency (ER) | payer MEDICARE, SELFPAY ==
[2020-03-01 03:58] VITALS: BP 143/73; PULSE 84; RESP 14; TEMP 36.7; O2SAT 98
--- NOTE | 2020-03-01 04:02 | ED.GENADUL_ITS ---
Discharge Plan Disposition Patient Disposition: HOME Condition: Stable Discharge Details Chief Complaint: Urinary Clinical Impression: Hematuria, Anemia Primary Care Provider: Tomer Yang ED Provider: Mohinder Webb [place] Meds and New Rx's Prescriptions: Continued losartan 50 mg Tablet 50 mg PO DAILY RF: 0 levetiracetam [Keppra] 500 mg Tablet 500 mg PO BID RF: 0 metoprolol succinate 100 mg Tablet Extended Release 24 Hr 100 mg PO DAILY RF: 0 thiamine HCl (vitamin B1) 100 mg Tablet 100 mg PO DAILY RF: 0 clopidogrel [Plavix] 75 mg Tablet 75 mg PO DAILY RF: 0 aspirin [Aspirin Low Dose] 81 mg Tablet,Delayed Release (Dr/Ec) 81 mg PO DAILY RF: 0 folic acid 1 mg Tablet 1 mg PO DAILY RF: 0 hydrochlorothiazide 25 mg Tablet 25 mg PO DAILY RF: 0 rosuvastatin 20 mg Tablet 20 mg PO DAILY RF: 0 acetaminophen [Tylenol] 325 mg Capsule 650 mg PO .Q6H PRN RF: 0 Discharge Instructions Instructions: Hematuria (ED), Anemia (ED) Additional Instructions: Your urine had no blood in it. You do have evidence of anemia which could be from the frequent lab draws you have been getting HAve your primary care provider repeat a cbc within a week if you have fevers, dark/black stools or severe pain return to the emergency department Medical Decision Making 64 yo male with hx of htn, seizure disorder, who was hospitalized at [facility] last month after a seizure in setting of influenza and CAP and had nstemi with no high grade disease requiring stenting per [facility] report, comes in from the [facility] with hematuria since last night and weakness over the course of a week or so. Denies any fevers, cough, headache, falls, abdominal pain, back pain. HE arrives HD stable in no distress speaking in full sentences caox4 with no focal motor or sensation deficits. HE did have hyponatremia as well last month. Given his symptoms will obtain UA to eval for uti as he did have justin inserted during his hospitalization and evaluate for anemia and electrolyte abnormalities. No chest pain or dyspnea to suggest acs. NO headaches to suggest sdh or other intracranial pathology and no focal deficits, nih of 0 so doubt CVA. NO symptoms to suggest pna, influenza, covid 19. Ua unremarkable, unremarkable metabolic panel. Does have hgb of 8.6 but has been getting frequent lab draws for monitoring of his Na. No black stools and guiac negative. Will d/c back to [facility] and advised to have cbc rechecked within a week Differential Diagnosis Differential Diagnosis: anemia, uti, hyponatremia Medical Records Medical records reviewed: Yes I reviewed the patient's medical records. Lab Data Lab results reviewed: Yes I reviewed the patient's lab results. HPI General Mode of arrival: EMS . Date/Time Provider Initiated Documentation: 03/01/20 04:00 . Limitations to Documentation: no limitations . Information obtained by: patient . History of Present Illness 64 year old M presents to the emergency department with the chief complaint of hematuria, described as mild, and it has been constant. No relieving factors improve symptom(s), No exacerbating factors reported . Patient did receive the following treatments prior to arrival, none Related Data Home Medications Medication Instructions Recorded Confirmed acetaminophen [Tylenol] 650 mg PO .Q6H PRN 03/01/20 03/01/20 aspirin [Aspirin Low Dose] 81 mg PO DAILY 03/01/20 03/01/20 clopidogrel [Plavix] 75 mg PO DAILY 03/01/20 03/01/20 folic acid 1 mg PO DAILY 03/01/20 03/01/20 hydrochlorothiazide 25 mg PO DAILY 03/01/20 03/01/20 levetiracetam [Keppra] 500 mg PO BID 03/01/20 03/01/20 losartan 50 mg PO DAILY 03/01/20 03/01/20 metoprolol succinate 100 mg PO DAILY 03/01/20 03/01/20 rosuvastatin 20 mg PO DAILY 03/01/20 03/01/20 thiamine HCl (vitamin B1) 100 mg PO DAILY 03/01/20 03/01/20 Allergies Allergy/AdvReac Type Severity Reaction Status Date / Time oxycodone Allergy Severe off the Unverified 03/01/20 04:07 wall Penicillins Allergy Severe Unverified 03/01/20 04:07 Sulfa (Sulfonamide Allergy Unknown Unverified 03/01/20 04:07 Antibiotics) General KJ: 2 Review of Systems All systems reviewed & are unremarkable except as noted in HPI and below Constitutional Constitutional: Denies chills and Denies fever(s) Cardiovascular Cardiovascular: Denies chest pain and Denies dyspnea Respiratory Respiratory: Denies cough and Denies dyspnea Gastrointestinal Gastrointestinal: Denies abdominal pain, Denies nausea and Denies vomiting Genitourinary Genitourinary: Denies dysuria Integumentary/Breasts Skin/Breast: Denies rash PFSH Family History Mother Neoplasm BREAST Father Neoplasm PROSTATE Sister Neoplasm HIPS Sister Heart murmur Neoplasm BREAST Grandmother Heart disease Stroke Social History Smoking/Tobacco Use Status: Never Drug use: Rarely Substance use type: marijuana Do you feel safe at home: Yes Do you feel safe in your relationship?: Yes Exam Const General: no acute distress Orientation: alert HENMT Head: normal to inspection Ears: external ears normal General nose exam: external nose normal Mouth: moist mucous membranes Eyes General: appearance normal, both eyes and all related structures Neck Neck: normal visual inspection Resp Effort & Inspection: normal respiratory effort and able to speak in complete sentences Cardio Rate: regular rate GI Palpation: soft and not rigid Skin General skin exam: no rashes or lesions noted Neuro General: patient alert and patient oriented x3 Extrem General: normal to inspection Psych Mental Status: mental status grossly normal
[2020-03-01 04:17] LABS: Bilirubin Negative (Negative); Blood Negative (Negative); Clarity Clear (Clear); Glucose Negative (Negative); Ketones Negative (Negative); Leukocyte Esterase Negative (Negative); Nitrite Negative (Negative); Urobilinogen 0.2 EU/dL (Up TO 0.2)
[2020-03-01 04:28] LABS: Abs Immature Grans 0.06 k/cumm (0.0-0.09); HCT 26.8 % (40.0-50.0); HGB 8.6 g/dL (13.5-17.5); Mean Corp. HGB Concentration 32.1 g/dL (32.0-36.0); Mean Corpuscular Hemoglobin 30.1 pg (27.0-33.0); Mean Corpuscular Volume 93.7 fL (80-95); Mean Platelet Volume 7.6 fL (8.0-11.0); Platelet Count 544 x1000/uL (130-400); RBC 2.86 m/cumm (4.50-6.00); RBC Distribution Width 13.9 % (11.8-14.1); White Blood Cell Count 10.12 k/cumm (4.4-10.8)
[2020-03-01 04:38] LABS: Absolute Lymphocyte Count 2.33 k/cumm (1.2-3.4); Absolute Monocyte Count 1.11 k/cumm (0.11-0.7); Absolute Neutrophil Count 6.38 k/cumm (1.2-6.7); PTT Activated 24.5 sec (21.0-31.4); Prothrombin Time 10.5 sec (9.3-11.0)
[2020-03-01 04:40] LABS: Diff Comment Manual Differential
[2020-03-01 04:42] LABS: RBC Morphology Normal
[2020-03-01 04:45] LABS: ALT 67 U/L (16-63); AST 30 U/L (15-37); Albumin 2.5 g/dL (3.4-5.0); Alkaline Phosphatase 90 U/L (46-116); Anion Gap 8.9 mmol/L (3-11); BUN 15 mg/dL (7-18); Bilirubin, Total 0.3 mg/dL (0.2-1.0); CO2 27.1 mmol/L (21.0-32.0); CREATININE 1.14 mg/dL (0.70-1.30); Calcium 9.1 mg/dL (8.5-10.1); Chloride 101 mmol/L (98-107); Glucose 113 mg/dL (74-106); Potassium 4.8 mmol/L (3.5-5.1); Sodium 137 mmol/L (136-145)
[2020-03-01 04:52] VITALS: BP 143/73; PULSE 84; RESP 14; TEMP 36.7; O2SAT 98
== END 2020-03-01 06:00 | disposition home or self-care (01) ==
PROVIDERS: Emergency Provider Emergency Medicine; PCP Family Medicine
DX: D64.89 Other specified anemias (principal); R31.9 Hematuria, unspecified; Z92.89 Personal history of other medical treatment; I10 Essential (primary) hypertension
CPT/HCPCS: 80053; 99283; 81003; 85025; 85610; 85730; 87086

== ENCOUNTER 2020-03-01 11:25 | Outpatient (REF) | payer MEDICARE, SELFPAY ==
[2020-03-01 13:18] LABS: CLEAVED CELLS 14 mmol/24h (40-220); Sodium, Urine 28 mmol/L; Total Volume 500 ml
== END 2020-03-01 11:45 ==
LOC: LBN 11:25
PROVIDERS: PCP Family Medicine; Visit Provider Family Medicine
DX: E87.1 Hypo-osmolality and hyponatremia (principal)
CPT/HCPCS: 81050; 84300

== ENCOUNTER 2020-03-01 12:11 | Inpatient (IN) | payer MEDICARE, SELFPAY ==
[2020-03-01] VITALS (30 sets, daily range): BP systolic 98–144; BP diastolic 57–84; PULSE 75–102; RESP 13–29; TEMP 36.4–37.1; O2SAT 91–98
--- NOTE | 2020-03-01 12:08 | W.ED.GENAD ---
Discharge Plan Disposition Patient Disposition: [facility] INPATIENT Condition: Stable Discharge Details Chief Complaint: GI Bleed Clinical Impression: Acute diverticulitis, Acute on chronic anemia, Colitis, Rectal bleeding, Dizziness Primary Care Provider: Tomer Yang ED Provider: Adrianne Salvador Home Meds and New Rx's Prescriptions: New ciprofloxacin HCl 500 mg tablet 500 mg PO BID 10 Days Qty: 20 RF: 0 metronidazole [Flagyl] 500 mg tablet 500 mg PO TID 10 Days Qty: 30 RF: 0 Continued losartan 50 mg Tablet 50 mg PO DAILY RF: 0 levetiracetam [Keppra] 500 mg Tablet 500 mg PO BID RF: 0 metoprolol succinate 100 mg Tablet Extended Release 24 Hr 125 mg PO DAILY RF: 0 thiamine HCl (vitamin B1) 100 mg Tablet 100 mg PO DAILY RF: 0 clopidogrel [Plavix] 75 mg Tablet 75 mg PO DAILY RF: 0 aspirin [Aspirin Low Dose] 81 mg Tablet,Delayed Release (Dr/Ec) 81 mg PO DAILY RF: 0 folic acid 1 mg Tablet 1 mg PO DAILY RF: 0 rosuvastatin 20 mg Tablet 20 mg PO DAILY RF: 0 acetaminophen [Tylenol] 325 mg Capsule 650 mg PO .Q6H PRN RF: 0 cyanocobalamin (vitamin B-12) [Vitamin B-12] 500 mcg Tablet 500 mcg PO DAILY RF: 0 ascorbic acid (vitamin C) 500 mg Tablet 500 mg PO BID RF: 0 ferrous sulfate 325 mg (65 mg iron) Tablet 325 mg PO BID RF: 0 Discharge Instructions Instructions: Diverticulitis (ED), Diverticulitis Diet (ED), Anemia (ED) Additional Instructions: Hold your Plavix dose for the next 3 days. An order was placed for you to have a recheck of your hemoglobin at the [facility] tomorrow. Take the antibiotics until finished. You should follow-up with your primary care provider at the [facility] this or Thursday regarding whether to resume taking your Plavix or to continue holding based on the blood in your stool and your hemoglobin level. Return to the emergency department at any time if you develop any worsening or new concerning symptoms such as fever, chest pain, shortness of breath, dizziness or worsening rectal bleeding. Discharge Data Discharge Physician: Adrianne Salvador Medical Decision Making 1225 -- 64yo M w/ a h/o HTN on aspirin and plavix s/p NSTEMI last month presents for hematochezia and melena since yesterday. 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 Of note, patient was seen here earlier today for an inaccurate report of hematuria. Dr. Webb's note states that patient had denied any GI bleed and had a negative guaiac. His hemoglobin was 8.6, down trended from 10.6 three weeks ago. Patient appears nontoxic. Afebrile. He had complained of some intermittent lower abdominal pain and had significant lower abdominal tenderness. Maroon-colored stool on guaiac which was heme positive. Differential diagnosis includes upper GI bleed, colitis, diverticulitis, diverticulosis, hemorrhoids, anticoagulation. Patient has a history of daily alcohol use but has not drank for the past 3 months. Patient had stated that he did not want any colonoscopy or surgery if indicated. He stated that he was told at the [facility] he could return home on Thursday and would rather do this. When asked about advanced directive, he was unable to state if he would want CPR or intubation if required and only stated I do not know . 1330 -- labs and imaging reviewed. WBC 8. Hgb 8.5, downtrended from 8.6 this morning and 10 three days ago. Remainder of labs within normal limits. Ct notes diverticulitis vs colits with consideration for colonoscopy for further evaluation if indicated; also noted large R renal cyst. Case d/w surgery Dr. Torres who recommended holding plavix if possible for a few days and treating with antibiotics with plan for recheck hemoglobin tomorrow. Will d/w [facility] cardiology. Patient again stated he would not want a colonoscopy at any time. Patient states he would prefer to go back to the [facility]. 1445 --Case discussed with [facility] cardiology who stated that patient's Plavix can be held for a few days. Patient was given a dose of Cipro and Flagyl here as well as prescriptions. An order form was completed for hemoglobin lab draw tomorrow. Patient feels good to go back to the [facility]. 1530 -- just before discharge, pt had a few large bloody bowel movements with large amounts of bright red blood with worsening dizziness and weakness. BP 93/46. Will admit for observation and serial hemoglobins. 1550 -- d/w hospitalist - accepts pt for admission. 1630 -- 4 hr hgb 6.7. Will order 2 units prbc. D/w hospitalist. Medical Records Medical records reviewed: Yes I reviewed the patient's medical records. Imaging Data Radiologic Study: Radiologist's impression: CT ABDOMEN PELVIS W CLINICAL HISTORY: lower abd pain, maroon colored stool TECHNIQUE: CT examination of the abdomen and pelvis was performed with bolus infusion of 89 cc of Omnipaque 350. COMPARISON: CT CHEST WO from 02/06/2020 CT CHEST WO from 02/06/2020 FINDINGS: Images obtained through the lung bases are unremarkable. No free intraperitoneal air seen. No free intraperitoneal fluid. There is a fat containing left inguinal hernia. No other significant abdominal wall hernia seen. The liver and spleen appear normal. Pancreatic contour is not ideally visualized due to patient motion but the pancreas is grossly intact. Gallbladder and bile ducts grossly unremarkable. Abdominal aorta is of normal diameter and no major vascular abnormality is seen. No significant retroperitoneal lymphadenopathy. Adrenals appear normal bilaterally. There is a low-attenuation homogeneous right renal cortical mass measuring up to 10 cm in diameter consistent with a cyst. Otherwise the kidneys are unremarkable, no hydronephrosis or nephrolithiasis. There is mild wall thickening of the descending and transverse duodenum and portions of the proximal jejunum. No small bowel obstruction. Cecum lies on the right side of the abdomen but there is no evidence of a cecal volvulus. There is question of wall thickening of portions of the descending and sigmoid colon with question mild associated fat edema, findings could represent colitis or diverticulitis. A few mildly prominent lymph nodes are seen in the pericolonic fat measuring up to about 7 millimeters in diameter. Findings are nonspecific but may represent chronic inflammatory process. Neoplastic disease not entirely excluded and follow-up colonoscopy recommended. There is fluid attenuation in the rectosigmoid consistent with the patient's history of diarrhea. IMPRESSION: Possible diverticulitis versus colitis. Mild prominence of sigmoid pericolonic lymph nodes, colonoscopy suggested for further evaluation when clinically appropriate. Right-sided cecum and ascending colon without evidence of volvulus at this time. 10 cm in diameter right renal cortical mass with appearance consistent with cyst. Fat containing left inguinal hernia, no bowel involvement. Lab Data Lab results reviewed: Yes I reviewed the patient's lab results. Labs: Laboratory Tests Range/Units 03/01/20 03/01/20 03/01/20 12:22 12:22 12:22 WBC (4.4-10.8) k/cumm 8.18 RBC (4.50-6.00) m/cumm 2.81 L Hgb (13.5-17.5) g/dL 8.5 L Hct (40.0-50.0) % 26.5 L MCV (80-95) fL 94.3 MCH (27.0-33.0) pg 30.2 MCHC (32.0-36.0) g/dL 32.1 RDW (11.8-14.1) % 14.2 H Plt Count (130-400) x1000/uL 610 H MPV (8.0-11.0) fL 8.0 Immature Gran % % 0.5 Neutrophils % 54.2 Lymphocytes % 28.7 Monocytes % 12.6 Eosinophils % 3.5 Basophils % 0.5 Absolute Neutrophils (1.2-6.7) k/cumm 4.43 Absolute Lymphocytes (1.2-3.4) k/cumm 2.35 Absolute Monocytes (0.11-0.7) k/cumm 1.03 H Absolute Eosinophils (0.0-0.7) k/cumm 0.29 Absolute Basophils (0.0-0.2) k/cumm 0.04 Sodium (136-145) mmol/L 136 Potassium (3.5-5.1) mmol/L 4.8 Chloride (98-107) mmol/L 101 Carbon Dioxide (21.0-32.0) mmol/L 26.6 Anion Gap (3-11) mmol/L 8.4 BUN (7-18) mg/dL 17 Creatinine (0.70-1.30) mg/dL 1.08 Estimated GFR/1.73 m2 (mL/min/1.73m2) >= 60.00 Glucose (74-106) mg/dL 97 Calcium (8.5-10.1) mg/dL 9.3 Magnesium (1.8-2.4) mg/dL 1.8 Total Bilirubin (0.2-1.0) mg/dL 0.3 AST (15-37) U/L 31 ALT (16-63) U/L 64 H Alkaline Phosphatase (46-116) U/L 91 Troponin I (<0.06) ng/Ml < 0.05 Total Protein (6.4-8.2) g/dL 7.3 Albumin (3.4-5.0) g/dL 2.7 L Patient ABO/Rh O Positive Antibody Screen Negative HPI General Mode of arrival: EMS. Date/Time Provider Initiated Documentation: 03/01/20 12:20. Limitations to Documentation: no limitations. Information obtained by: patient. HPI Narrative: Pt is a 64yo M who presents from the [facility] rehab for blood in stool. Pt states for the past day he has had bright red blood and black colored stools. He also admits to occasional diarrhea for the past year. He also admits to 4/10 intermittent lower abdominal pain and decreased appetite since yesterday. He denies fever, chills, chest pain, sob, urinary symptoms, rectal pain. Pt was seen here earlier this morning for blood in urine and had labs and was discharged back to the [facility]. It was reported that pt's nurse had a language barrier and reported that he had hematuria when it was actually blood in stool. Related Data Home Medications Medication Instructions Recorded Confirmed acetaminophen [Tylenol] 650 mg PO .Q6H PRN 03/01/20 03/01/20 ascorbic acid (vitamin C) 500 mg PO BID 03/01/20 03/01/20 aspirin [Aspirin Low Dose] 81 mg PO DAILY 03/01/20 03/01/20 ciprofloxacin HCl 500 mg PO BID 10 Days #20 tab 03/01/20 clopidogrel [Plavix] 75 mg PO DAILY 03/01/20 03/01/20 cyanocobalamin (vitamin B-12) 500 mcg PO DAILY 03/01/20 03/01/20 [Vitamin B-12] ferrous sulfate 325 mg PO BID 03/01/20 03/01/20 folic acid 1 mg PO DAILY 03/01/20 03/01/20 levetiracetam [Keppra] 500 mg PO BID 03/01/20 03/01/20 losartan 50 mg PO DAILY 03/01/20 03/01/20 metoprolol succinate 125 mg PO DAILY 03/01/20 03/01/20 metronidazole [Flagyl] 500 mg PO TID 10 Days #30 tab 03/01/20 rosuvastatin 20 mg PO DAILY 03/01/20 03/01/20 thiamine HCl (vitamin B1) 100 mg PO DAILY 03/01/20 03/01/20 Previous Rx's Medication Instructions Recorded ciprofloxacin HCl 500 mg PO BID 10 Days #20 tab 03/01/20 metronidazole [Flagyl] 500 mg PO TID 10 Days #30 tab 03/01/20 Allergies Allergy/AdvReac Type Severity Reaction Status Date / Time oxycodone Allergy Severe off the Unverified 03/01/20 12:27 wall Penicillins Allergy Severe Unverified 03/01/20 12:27 Sulfa (Sulfonamide Allergy Unknown Unverified 03/01/20 12:27 Antibiotics) General KJ: 2 Review of Systems All systems reviewed & are unremarkable except as noted in HPI and below Constitutional Constitutional: Reports as per HPI, Denies chills and Denies fever(s) Eyes Eyes: Denies blurry vision ENT Ears, Nose, Mouth, and Throat: Denies dizziness, Denies sore throat and Denies throat swelling Cardiovascular Cardiovascular: Denies chest pain and Denies dyspnea Respiratory Respiratory: Denies cough and Denies dyspnea Gastrointestinal Gastrointestinal: Denies abdominal pain, Reports melena, Reports hematochezia, Reports diarrhea and Denies vomiting Genitourinary Genitourinary: Denies hematuria and Denies dysuria Musculoskeletal Musculoskeletal: Denies back pain and Denies numbness Integumentary/Breasts Skin/Breast: Denies lesions and Denies rash Neurologic Neurologic: Denies dizziness, Denies localized weakness and Denies numbness Allergic/Immunologic Allergic/Immunologic: Denies throat swelling PFSH Family History Mother Neoplasm BREAST Father Neoplasm PROSTATE Sister Neoplasm HIPS Sister Heart murmur Neoplasm BREAST Grandmother Heart disease Stroke Social History Smoking/Tobacco Use Status: Never Drug use: Rarely Substance use type: marijuana Do you feel safe at home: Yes Do you feel safe in your relationship?: Yes Exam Const General: cooperative and no acute distress Orientation: alert, awake and oriented x3 HENMT Head: normal to inspection Face and sinus: normal facial exam Eyes General: appearance normal, both eyes and all related structures EOM: EOM intact bilaterally Neck Neck: normal visual inspection and No submandibular swelling Lymphatic: no lymphadenopathy noted Chest Chest: normal inspection of the chest and no tenderness Resp Effort & Inspection: normal respiratory effort and able to speak in complete sentences Auscultation: clear to auscultation bilaterally Cardio Rate: regular rate Rhythm: regular rhythm GI Inspection: normal to inspection Palpation: soft, not firm, not rigid and tender (across lower abdomen) Auscultation: hypoactive bowel sounds Rectal Exam: heme positive stool gross blood (maroon colored) Male General Exam: Yes normal external exam Skin General skin exam: no rashes or lesions noted Neuro General: patient alert, patient awake and patient oriented x3 Cognition: normal cognition Speech: speech normal Motor: muscle tone normal throughout Sensory Exam: no sensory deficits noted Extrem General: normal to inspection, full ROM, capillary refill normal, no calf tenderness bilaterally and no edema Psych Appearance: grossly normal Mental Status: mental status grossly normal Speech and Movement: speech and movement normal Affect: normal affect
--- NOTE | 2020-03-01 12:30 | DI.CT_ITS ---
EXAM: CT ABDOMEN PELVIS W CLINICAL HISTORY: lower abd pain, maroon colored stool TECHNIQUE: CT examination of the abdomen and pelvis was performed with bolus infusion of 89 cc of Om nipaque 350. COMPARISON: CT CHEST WO from 02/06/2020 CT CHEST WO from 02/06/2020 FINDINGS: Images obtained through the lung bases are unremarkable. No free intraperitoneal air seen. No free intraperitoneal fluid. There is a fat containing left inguinal hernia. No other significant abdomi nal wall hernia seen. The liver and spleen appear normal. Pancreatic contour is not ideally visualized due to patient yahaira on but the pancreas is grossly intact. Gallbladder and bile ducts grossly unremarkable. Abdominal a breanna is of normal diameter and no major vascular abnormality is seen. No significant retroperitoneal lymphadenopathy. Adrenals appear normal bilaterally. There is a low-attenuation homogeneous right renal cortical mass measuring up to 10 cm in diameter consistent with a cyst. Otherwise the kidneys are unremarkable, n o hydronephrosis or nephrolithiasis. There is mild wall thickening of the descending and transverse duodenum and portions of the proximal jejunum. No small bowel obstruction. Cecum lies on the right side of the abdomen but there is no ev idence of a cecal volvulus. There is question of wall thickening of portions of the descending and sigmoid colon with question mi ld associated fat edema, findings could represent colitis or diverticulitis. A few mildly prominent lymph nodes are seen in the pericolonic fat measuring up to about 7 millimeters in diameter. Finding s are nonspecific but may represent chronic inflammatory process. Neoplastic disease not entirely ex cluded and follow-up colonoscopy recommended. There is fluid attenuation in the rectosigmoid consistent with the patient's history of diarrhea. IMPRESSION: Possible diverticulitis versus colitis. Mild prominence of sigmoid pericolonic lymph nodes, colonosc opy suggested for further evaluation when clinically appropriate. Right-sided cecum and ascending colon without evidence of volvulus at this time. 10 cm in diameter right renal cortical mass with appearance consistent with cyst. Fat containing left inguinal hernia, no bowel involvement.
[2020-03-01 13:01] LABS: Abs Immature Grans 0.04 k/cumm (0.0-0.09); Absolute Basophil Count 0.04 k/cumm (0.0-0.2); Absolute Eosinophil Count 0.29 k/cumm (0.0-0.7); Absolute Lymphocyte Count 2.35 k/cumm (1.2-3.4); Absolute Monocyte Count 1.03 k/cumm (0.11-0.7); Absolute Neutrophil Count 4.43 k/cumm (1.2-6.7); Basophils % 0.5; Eosinophils % 3.5; HCT 26.5 % (40.0-50.0); HGB 8.5 g/dL (13.5-17.5); Immature Grans % 0.5 %; Lymphocytes % 28.7; Mean Corp. HGB Concentration 32.1 g/dL (32.0-36.0); Mean Corpuscular Hemoglobin 30.2 pg (27.0-33.0); Mean Corpuscular Volume 94.3 fL (80-95); Monocytes % 12.6; Neutrophils % 54.2; Platelet Count 610 x1000/uL (130-400); RBC 2.81 m/cumm (4.50-6.00); RBC Distribution Width 14.2 % (11.8-14.1); White Blood Cell Count 8.18 k/cumm (4.4-10.8)
[2020-03-01] MEDS: Omnipaque 350 MG/ML 100 ML BTL IJ (13:04)
[2020-03-01 13:24] LABS: ALT 64 U/L (16-63); AST 31 U/L (15-37); Albumin 2.7 g/dL (3.4-5.0); Alkaline Phosphatase 91 U/L (46-116); Anion Gap 8.4 mmol/L (3-11); BUN 17 mg/dL (7-18); Bilirubin, Total 0.3 mg/dL (0.2-1.0); CO2 26.6 mmol/L (21.0-32.0); CREATININE 1.08 mg/dL (0.70-1.30); Calcium 9.3 mg/dL (8.5-10.1); Chloride 101 mmol/L (98-107); Glucose 97 mg/dL (74-106); Magnesium 1.8 mg/dL (1.8-2.4); Potassium 4.8 mmol/L (3.5-5.1); Sodium 136 mmol/L (136-145); Total Protein 7.3 g/dL (6.4-8.2); Troponin I < 0.05 ng/Ml (<0.06)
[2020-03-01] MEDS: Normal Saline 1,000 ML 1000 ML IV (13:44)
[2020-03-01] MEDS: Acetaminophen 500 MG TAB 1000 MG PO (13:46)
--- NOTE | 2020-03-01 14:20 | NUR.NOTE ---
pt sleeping, respirations even and unlabored
[2020-03-01] MEDS: metroNIDAZOLE 500 MG TAB PO (14:55)
[2020-03-01] MEDS: Ciprofloxacin 500 MG TAB PO (14:56)
--- NOTE | 2020-03-01 15:13 | NUR.NOTE ---
assisted to BR, voided and large amt of blood noted in toilet, no formed stool noted
--- NOTE | 2020-03-01 16:01 | NUR.NOTE ---
assisted pt to BR, large amt blood in toilet with clots, pt had to use again immediately and states he feels he will pass out, notified., BP 94/94, HR 86. assisted back to bed and IV restarted with mule tender on
[2020-03-01 16:29] LABS: HGB 6.7 g/dL (13.5-17.5)
[2020-03-01 16:30] LABS: HCT 20.8 % (40.0-50.0)
--- NOTE | 2020-03-01 16:43 | NUR.NOTE ---
pants, shirts and boots went with pt to med-surg, report given to MAGALI Regalado. pt admitted to 207
--- NOTE | 2020-03-01 17:27 | HPE_ITS ---
Date of service: 03/01/20 Time of Service: 17:27 Assessment and Plan Assessment and plan (1) Rectal bleeding: Status: Acute Assessment and plan: Most consistent with a lower GI bleed with findings of diverticulitis versus colitis on CT scan and red stool seen in the emergency room. However, upper GI bleed is possible. BUN is not elevated to suggest upper GI. Patient currently stating he does not want a surgical procedure including endoscopy/colonoscopy if he can avoid it. He is accepting of blood transfusion. Dr. Moore from surgery has been consulted emergency room. I still think it is prudent to keep him n.p.o. in case he continues to lose blood in emergent upper endoscopy is needed and he changes his mind. I also treat with proton pump inhibitors. He is currently getting 2 units ordered in the emergency room. Plan to repeat hematocrit 1 hour after this infusion and follow. (2) Colitis: Status: Acute Assessment and plan: CT suggest diverticulitis. Patient's been started on Cipro ofloxacin and metronidazole in the emergency room. Continue this treatment, though heavy bleeding and lack of significant abdominal pain is not typical for diverticulitis. It may be diverticular bleed. We do not have a history to suggest alternative diagnosis such as ulcerative colitis but this can present with rectal bleeding in older patients. There is not pain to suggest ischemic colitis. (3) Anemia: Status: Chronic Assessment and plan: Appears the patient had a baseline anemia around with a hemoglobin around 10 in the past month. He has been on iron, B12, and folate. we are holding these acutely. He may end up benefiting from IV iron if his stores are indeed quite low. Following with transfusion as above. (4) Non-ST elevation [place] (NSTEMI): Status: Acute Assessment and plan: Acute GI bleed is especially concerning given recent non-ST elevation [place]. Cardiology was consulted emergency room when the hematocrit looks stable, and recommended holding the clopidogrel. At this point, I think prudent to hold both the aspirin and clopidogrel until he stabi lizes. We will continue a beta-lori and statin. Monitor on telemetry, further cardiac work up if he developes chest pain/pressure. (5) Seizure: Status: Acute Assessment and plan: Continue Keppra, convert to IV while n.p.o. (6) Abnormal transaminases: Status: Acute Assessment and plan: This has been a chronic issue looking back. H/o regular alcohol use, but ALT more elevated with is less consistent with alcoholic hepatitis. Seems to predate statin prescription. Will review and get HCV/HBV screen if not done. (7) DVT prophylaxis: Status: Acute Assessment and plan: SCDs given acute bleed. History of Present Illness 64 yo M who is currently at the [facility] for rehabilitation after NSTEMI 02/06/20 with ~40% LAD occlusion but no stent placed who presented to the emergency room with maroon stools since yesterday. Initially the patient presented early on the morning of admission, but his complaint was mistakingly understood as hematuria, and there was a report of negative hemoccult. The hemoglobin was 8.6, down from 10 the previous week. The patient returned later in the day reporting more dark blood in the stool. Hemoglobin was 8.5 initially, but hospitalist called for admission after 3 frankly red bloody stools were noted. The patient states the stools have been mostly dark red, sometimes mixed with stool. He hasn't had this problem before. He states he has had 10-20 BMs during this time. He denies associated abdominal pain or heartburn. He denies other bleeding. He has had some lightheadedness and general fatigue developing over the past day. He also feels mildly SOB. He denies chest pain. He has been taking ASA 81mg and clopidogrel 75mg since recent admission for NSTEMI with mild partial occlusion found on cath. Of note, he formally was a daily consumer of alcohol but denies uses over the past 3 months. Review of Systems Narrative: GEN: Normal appetite recently. No fevers/chills. HEENT: No rhinorrhea, sore throat, or mouth lesions. no epistaxis or gum bleeding. EYES: no eye pain or vision changes. Lungs: no cough or sputum. CV: No chest pain or palpitations GI: no nausea or vomiting. No abdominal bloating. no jaundice. : no dysuria or hematuria or other changes in urination MSK: no new joint pain or swelling SKIN: No new rashes, large bruises, or other skin lesions. Neuro: +occaisional headache, can't say that this is different than usual. no focal numbness or weakness. 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 with 3 adult children Meds Home Medications and Allergies Home Medications Medication Instructions Recorded Confirmed Type acetaminophen [Tylenol] 650 mg PO .Q6H PRN 03/01/20 03/01/20 History ascorbic acid (vitamin C) 500 mg PO BID 03/01/20 03/01/20 History aspirin [Aspirin Low Dose] 81 mg PO DAILY 03/01/20 03/01/20 History ciprofloxacin HCl 500 mg PO BID 10 Days #20 tab 03/01/20 Rx clopidogrel [Plavix] 75 mg PO DAILY 03/01/20 03/01/20 History cyanocobalamin (vitamin B-12) 500 mcg PO DAILY 03/01/20 03/01/20 History [Vitamin B-12] ferrous sulfate 325 mg PO BID 03/01/20 03/01/20 History folic acid 1 mg PO DAILY 03/01/20 03/01/20 History levetiracetam [Keppra] 500 mg PO BID 03/01/20 03/01/20 History losartan 50 mg PO DAILY 03/01/20 03/01/20 History metoprolol succinate 125 mg PO DAILY 03/01/20 03/01/20 History metronidazole [Flagyl] 500 mg PO TID 10 Days #30 tab 03/01/20 Rx rosuvastatin 20 mg PO DAILY 03/01/20 03/01/20 History thiamine HCl (vitamin B1) 100 mg PO DAILY 03/01/20 03/01/20 History Allergies Allergy/AdvReac Type Severity Reaction Status Date / Time oxycodone Allergy Severe off the Unverified 03/01/20 12:27 wall Penicillins Allergy Severe Unverified 03/01/20 12:27 Sulfa (Sulfonamide Allergy Unknown Unverified 03/01/20 12:27 Antibiotics) Exam Narrative Exam Narrative: GEN: Alert and oriented, pleasant, though slow in response to questions and has difficulty remembering his medical and life history. HEENT: NC/AT. Conjunctiva clear, no icterus. PEERL, EOMI. no rhinorrhea. MMM, poor dentition, no OP lesions. Neck supple, no masses or LAD. LUNGS: CTAB with normal effort CV: RRR, no murmurs, gallups, or rubs ABD: +BS, soft, mild epigastric and lower abdominal tenderness. no masses palpable. No HSM or ascites, not distended. EXT: No cyanosis, clubbing, or edema. Legs not TTP. NEURO: Speech slow, normal coordination, moving 4 ext with normal sensation to light touch. no tremor. MSK: scar and deformity right arm. No joint redness or swelling SKIN: No rashes, bruises/petichea, or other lesions. PSYCH: Affect somewhat flat, normal mood. Results CT A/P with contrast showing colitis vs diverticulitis. Labs Result diagrams: 03/01/20 16:16 03/01/20 12:22 Labs: Laboratory Results - last 24 hr 03/01/20 03/01/20 03/01/20 12:22 12:22 12:22 WBC 8.18 RBC 2.81 L Hgb 8.5 L Hct 26.5 L MCV 94.3 MCH 30.2 MCHC 32.1 RDW 14.2 H Plt Count 610 H MPV 8.0 Immature Gran % 0.5 Neutrophils % 54.2 Lymphocytes % 28.7 Monocytes % 12.6 Eosinophils % 3.5 Basophils % 0.5 Absolute Neutrophils 4.43 Absolute Lymphocytes 2.35 Absolute Monocytes 1.03 H Absolute Eosinophils 0.29 Absolute Basophils 0.04 Sodium 136 Potassium 4.8 Chloride 101 Carbon Dioxide 26.6 Anion Gap 8.4 BUN 17 Creatinine 1.08 Estimated GFR/1.73 m2 >= 60.00 Glucose 97 Calcium 9.3 Magnesium 1.8 Total Bilirubin 0.3 AST 31 ALT 64 H Alkaline Phosphatase 91 Troponin I < 0.05 Total Protein 7.3 Albumin 2.7 L Patient ABO/Rh O Positive Antibody Screen Negative Crossmatch See Detail 03/01/20 16:16 WBC RBC Hgb 6.7 L* Hct 20.8 L* D MCV MCH MCHC RDW Plt Count MPV Immature Gran % Neutrophils % Lymphocytes % Monocytes % Eosinophils % Basophils % Absolute Neutrophils Absolute Lymphocytes Absolute Monocytes Absolute Eosinophils Absolute Basophils Sodium Potassium Chloride Carbon Dioxide Anion Gap BUN Creatinine Estimated GFR/1.73 m2 Glucose Calcium Magnesium Total Bilirubin AST ALT Alkaline Phosphatase Troponin I Total Protein Albumin Patient ABO/Rh Antibody Screen Crossmatch Last Vital Signs Temp 36.8 C 03/01/20 17:17 Pulse 80 03/01/20 17:17 Resp 20 03/01/20 17:17 BP 119/76 03/01/20 17:17 Pulse Ox 97 03/01/20 17:17 COVID-19 Screening Traveled to [place] from one of the affected countries or regions?: NO
--- NOTE | 2020-03-01 18:04 | SCONE_ITS ---
Date of service: 03/02/20 Time of Service: 12:36 Assessment and Plan Assessment and plan (1) Rectal bleeding: Status: Acute Assessment and plan: I have reviewed the CT which shows inflammation in the sigmoid region. This is the presumed source of bleeding, which could be colitis or diverticulitis. I agree with antibiotic therapy. Stool cultures pending. The bleeding will hopefully resolve with stopping Plavix and aspirin. He has received 4 units of PRBC . If bleeding continues at a significant volume, consideration could be given to angiography with embolization. He is agreeable to having a colonoscopy but with his recent [place], he is not a candidate for having the procedure at [facility]. Will follow. History of Present Illness Narrative: This patient was brought in from the [facility] yesterday with concerns about rectal bleeding. He had several bright bloody stools in the ER and also had a few small bloody stools this am. He denies abdominal pain but due to tenderness on exam had a CT performed which shows inflammation in the descending and sigmoid colon - colitis or diverticulitis possible. The patient has never had a colonoscopy. He reports a change in bowel habits for the past year with his stools being loose. Poor appetite but tolerating PO. No known history of ulcers but was drinking alcohol prior to recent illness. He was recently admitted to [facility] with a hyponatremic seizure, NSTEMI and pneumon ia. Cardiac cath did not show any lesions needing stents but he was placed on Plavix for one year. Review of Systems Narrative: Does report some vague left chest pain [facility] Medical History C2 cervical fracture (Inactive) Essential hypertension (Acute) Non-ST elevation [place] (NSTEMI) (Inactive) Family History Mother Neoplasm BREAST Father Neoplasm PROSTATE Sister Neoplasm HIPS Sister Heart murmur Neoplasm BREAST Grandmother Heart disease Stroke Social History Smoking/Tobacco Use Status: Never Drug use: Rarely Substance use type: marijuana Do you feel safe at home: Yes Do you feel safe in your relationship?: Yes Additional Social history: currently at [facility], lives at home off [address] in [place] 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 with 3 adult children Exam Narrative Exam Narrative: Alert, no acute distress Abdomen soft, nondistended. Mild tenderness in left upper, mid and lower regions. No masses. Results Last Vital Signs Temp 98.2 F 03/01/20 17:17 Pulse 80 03/01/20 17:17 Resp 20 03/01/20 17:17 BP 119/76 03/01/20 17:17 Pulse Ox 97 03/01/20 17:17 Labs Result diagrams: 03/02/20 10:30 03/01/20 12:22 Labs: Laboratory Results - last 24 hr 03/01/20 03/01/20 03/01/20 12:22 12:22 12:22 WBC 8.18 RBC 2.81 L Hgb 8.5 L Hct 26.5 L MCV 94.3 MCH 30.2 MCHC 32.1 RDW 14.2 H Plt Count 610 H MPV 8.0 Immature Gran % 0.5 Neutrophils % 54.2 Lymphocytes % 28.7 Monocytes % 12.6 Eosinophils % 3.5 Basophils % 0.5 Absolute Neutrophils 4.43 Absolute Lymphocytes 2.35 Absolute Monocytes 1.03 H Absolute Eosinophils 0.29 Absolute Basophils 0.04 Sodium 136 Potassium 4.8 Chloride 101 Carbon Dioxide 26.6 Anion Gap 8.4 BUN 17 Creatinine 1.08 Estimated GFR/1.73 m2 >= 60.00 Glucose 97 Calcium 9.3 Magnesium 1.8 Total Bilirubin 0.3 AST 31 ALT 64 H Alkaline Phosphatase 91 Troponin I < 0.05 Total Protein 7.3 Albumin 2.7 L Patient ABO/Rh O Positive Antibody Screen Negative Crossmatch See Detail 03/01/20 16:16 WBC RBC Hgb 6.7 L* Hct 20.8 L* D MCV MCH MCHC RDW Plt Count MPV Immature Gran % Neutrophils % Lymphocytes % Monocytes % Eosinophils % Basophils % Absolute Neutrophils Absolute Lymphocytes Absolute Monocytes Absolute Eosinophils Absolute Basophils Sodium Potassium Chloride Carbon Dioxide Anion Gap BUN Creatinine Estimated GFR/1.73 m2 Glucose Calcium Magnesium Total Bilirubin AST ALT Alkaline Phosphatase Troponin I Total Protein Albumin Patient ABO/Rh Antibody Screen Crossmatch
[2020-03-01] MEDS: POTASSIUM CHLORIDE/D5-0.45NACL 1,000 ML 100 MEQ IV (18:06)
[2020-03-01] MEDS: ACETAMINOPHEN 1,000 MG/100 ML BTL 400 MG IVPB (18:07)
[2020-03-01] MEDS: levETIRAcetam 500 MG in Normal Saline 100 ML 400 MG IVPB (18:16)
[2020-03-01] MEDS: PANTOPRAZOLE 80 MG in Normal Saline 100 ML 10 MG IV (18:57)
--- NOTE | 2020-03-01 19:09 | NUR.NOTE ---
pt with copious amounts of blood in his stool, no hat was placed in the toilet and blood filled toilet and was red brown upon wiping.
[2020-03-01] MEDS: metroNIDAZOLE 500 MG/100 ML BAG 100 MG IVPB (21:29)
[2020-03-01] MEDS: Rosuvastatin 10 MG TAB 20 MG PO (21:30)
[2020-03-01] MEDS: Normal Saline Flush 10 ML SYR IVP (21:41)
[2020-03-02] VITALS (21 sets, daily range): BP systolic 93–144; BP diastolic 54–81; PULSE 58–87; RESP 16–19; TEMP 36.3–37.1; O2SAT 96–99
--- NOTE | 2020-03-02 | DI.US_ITS ---
EXAM: US LOWER EXTREMITY VENOUS RT CLINICAL HISTORY: r/0 DVT, pain to leg and numbness. TECHNIQUE: Ultrasound performed using standard protocol. COMPARISON: No exams were available for comparison FINDINGS: Duplex venous ultrasound was performed according to the usual protocol. The deep veins are freely com pressible throughout and there is normal flow augmentation with manual calf compression. 2D and Doppl er evaluation are unremarkable. IMPRESSION: No evidence of deep venous thrombosis of the right lower extremity DATA REPOSITORY:
[2020-03-02] MEDS: diphenhydrAMINE 25 MG CAP PO (01:48)
[2020-03-02] MEDS: POTASSIUM CHLORIDE/D5-0.45NACL 1,000 ML 100 MEQ IV (01:54)
[2020-03-02] MEDS: ACETAMINOPHEN 1,000 MG/100 ML BTL 400 MG IVPB ×2 (02:52→09:41)
[2020-03-02] MEDS: CIPROFLOXACIN 400 MG/200 ML BAG 200 MG IVPB (03:23)
[2020-03-02] MEDS: levETIRAcetam 500 MG in Normal Saline 100 ML 400 MG IVPB (06:20)
[2020-03-02] MEDS: metroNIDAZOLE 500 MG/100 ML BAG 100 MG IVPB ×2 (06:50→12:00)
[2020-03-02] MEDS: Metoprolol CR 50 MG TABCR 125 MG PO (08:24)
--- NOTE | 2020-03-02 08:42 | NUR.NOTE ---
At 732 DROP WIRE ALIGNER took BP with child size cuff/small blue cuff, at 832 DROP WIRE ALIGNER took BP with dark blue adult cuff pete [place].Nursing Note:
--- NOTE | 2020-03-02 08:44 | NUR.NOTE ---
at 732 LONGWALL HEADGATE OPERATOR took pt BP with child size cuff at 832 RN took BP with adult dark blue pete [place] BP cuffNursing Note:
--- NOTE | 2020-03-02 08:58 | PHA.REVIEW ---
Pharmacy Admission Review - Admission Clinical Review (Last Reviewed 01/14/20 @ 11:51 by Michael Robles MD) Abnormal transaminases (Acute) DVT prophylaxis (Acute) Seizure (Acute) Non-ST elevation [place] (NSTEMI) (Acute) Acute diverticulitis (Acute) Acute on chronic anemia (Acute) Colitis (Acute) Rectal bleeding (Acute) Dizziness (Acute) oxycodone Allergy (Severe, Unverified 03/01/20 12:27) off the wall Penicillins Allergy (Severe, Unverified 03/01/20 12:27) Sulfa (Sulfonamide Antibiotics) Allergy (Unknown, Unverified 03/01/20 12:27) Height 5 ft 3 in Weight 61.4 kg - Renal Dosing Renal Dosing: BUN 17 mg/dL (7-18) 03/01/20 12:22 Creatinine 1.08 mg/dL (0.70-1.30) 03/01/20 12:22 Medications needing adjustments: Reviewed (CrCl~ 54 mL/min Meds-OK) - Anticoagulation Anticoagulation: Hgb Cancelled 03/01/20 22:00 Hct Cancelled 03/01/20 22:00 Plt Count 610 x1000/uL (130-400) H 03/01/20 12:22 Creatinine 1.08 mg/dL (0.70-1.30) 03/01/20 12:22 DVT Prohphylaxis: Reviewed (GI bleed, receive transfusion x 4, On Plavix & ASA at home.) Therapeutic Anticoagulation: Reviewed (gi bleed, received transfusion x 4) - Opiate Usage Evaluate Pain Scale/Pains Meds: N/A (NPO) - Relevant Labs Sodium 136 mmol/L (136-145) 03/01/20 12:22 Potassium 4.8 mmol/L (3.5-5.1) 03/01/20 12:22 Chloride 101 mmol/L (98-107) 03/01/20 12:22 Magnesium 1.8 mg/dL (1.8-2.4) 03/01/20 12:22 Electrolytes, C-Reactive P, ESR: Reviewed (H&H 6.7/20.8 Yesterday, Pending today post transfusion) - DM Control DM Control: Glucose 97 mg/dL (74-106) 03/01/20 12:22 Insulin Dosing: N/A - Heart Failure/LA Heart Failure/LA: Troponin I < 0.05 ng/Ml (<0.06) 03/01/20 12:22 EF%, CODY's, B-Blockers, Diuretics: Reviewed (On Toprol-XL Home Med. Losartan (hoem med not re-odered yet)) - BP Control BP Control: Blood Pressure 126/77 Blood Pressure 109/69 Blood Pressure 132/73 Blood Pressure 132/73 Blood Pressure 138/68 Blood Pressure 138/68 Blood Pressure 144/81 Blood Pressure 122/68 Blood Pressure 124/74 Blood Pressure 123/76 Blood Pressure 114/66 Blood Pressure 93/54 Blood Pressure 120/60 Blood Pressure 110/74 Blood Pressure 106/67 Blood Pressure 115/68 Blood Pressure 115/68 Blood Pressure 106/68 Blood Pressure 106/68 Blood Pressure 110/70 Blood Pressure 116/71 Blood Pressure 114/75 Blood Pressure 114/75 If elevated: Reviewed - Qtc Review If Elevated: Reviewed (QTc-467 (On Cipro IV, Protonix, Benadryl (prn)) - IV to PO Switch IV Medications: Reviewed (Awaiting H&H to stablize, npo currently.Does not want surgical invention, but.... still iv meds) - Home Meds Home Med List reviewed: Reviewed (NPO currently PO meds Vit-c,B-1 B-12, ASA, Plavix, Iron, FolicAcid, Losartan, on HOLD) - Current meds Current Medication Order Review: Reviewed (Kepppra IV may switch back to po once eating)
[2020-03-02] MEDS: Pantoprazole 40 MG VIAL IVP (09:18)
[2020-03-02] MEDS: Normal Saline Flush 10 ML SYR IVP (09:18)
[2020-03-02 10:43] LABS: Abs Immature Grans 0.06 k/cumm (0.0-0.09); Absolute Basophil Count 0.04 k/cumm (0.0-0.2); Absolute Eosinophil Count 0.36 k/cumm (0.0-0.7); Absolute Lymphocyte Count 1.77 k/cumm (1.2-3.4); Absolute Monocyte Count 1.11 k/cumm (0.11-0.7); Absolute Neutrophil Count 4.29 k/cumm (1.2-6.7); Basophils % 0.5; Eosinophils % 4.7; HCT 28.5 % (40.0-50.0); HGB 9.6 g/dL (13.5-17.5); Immature Grans % 0.8 %; Lymphocytes % 23.2; Mean Corp. HGB Concentration 33.7 g/dL (32.0-36.0); Mean Corpuscular Hemoglobin 30.3 pg (27.0-33.0); Mean Corpuscular Volume 89.9 fL (80-95); Mean Platelet Volume 7.9 fL (8.0-11.0); Monocytes % 14.5; Neutrophils % 56.3; Platelet Count 293 x1000/uL (130-400); RBC 3.17 m/cumm (4.50-6.00); RBC Distribution Width 15.1 % (11.8-14.1); White Blood Cell Count 7.63 k/cumm (4.4-10.8)
--- NOTE | 2020-03-02 10:45 | PDOC.CMIN ---
- If Service Date Differs Date of service: 03/02/20 Time of Service: 10:45 Care Management Initial Assess REASON FOR HOSPITALIZATION:: Acute GI bleed, diverticulitis/colitis, acute anemia. PAST MEDICAL HISTORY/PAST SURGICAL HISTORY:: Medical/Surgical History: Abnormal transaminases, DVT prophylaxis, seizure, acute hyponatremia, non-ST evelation [place] (NSTEMI), acute respiratory failure, obtundation, C2 cervical fracture, hematuria, anemia, acute diverticulitis, acute on chronic anemia, colitis, rectal bleeding, dizziness, acute dehydration, essential hypertension, crushing injury of upper extremity, and hypertension. PREVIOUS FUNCTIONAL STATUS/SOCIAL/FAMILY SUPPORTS:: Juan Carlos is a 64 year old male who resides alone in [facility] in his family home. He reports for the past two weeks, he has been at [facility] for rehab post [place] [facility]. When home, Juan Carlos enjoys reading and watching television. He states his friend from [facility], Sean Guerin, cares for him at home. Sean reportedly cooks his meals, cleans his home, and feeds his dog and his cat. Juan Carlos ambulates at home with a walking stick, but has been using a walker at [facility]. CURRENT FUNCTIONAL STATUS:: Juan Carlos is lying in bed when CM comes to meet with him. He reports having difficulty hearing, as he left his hearing aids at [facility]. Juan Carlos is pleasant but states talking makes him short of breath. He shares he is agreeable to a colonoscopy or any other procedure deemed necessary by [facility] provider. He hopes to discharge back to [facility] for a short amount of time before returning home to [facility]. Juan Carlos is meeting with Palliative Care this afternoon. CM will continue to follow. ADVANCE DIRECTIVES:: None on file. Has patient been provided with information about the portal?: Yes Did the patient sign up for the portal?: No CODE STATUS:: Full Code INSURANCE COVERAGE / FINANCIAL ISSUES:: Medicare. CURRENT HOME/COMMUNITY SERVICES/EQUIPMENT:: Juan Carlos ambulates with a walking stick at home and denies having any other medical equipment. Juan Carlos is a member of the [employer]. He shares a friend from [facility], Sean Guerin, has been caring for him at home, but denies any community services such as Home Health or [place] [facility] Aging. For the past two weeks, he has been at [facility] for rehab post[place] [facility]. PRIMARY CARE PHYSICIAN:: Tomer Yang MD ([facility]). POTENTIAL DISCHARGE NEEDS:: Follow-up appointments with PCP. PATIENT/FAMILY EDUCATION NEEDS:: Discharge instructions, limitations, plan of care, including Ask Me Three and self-management. ANTICIPATED BARRIERS TO DISCHARGE:: No anticipated barriers at this time. TRANSPORTATION:: Via [facility] upon discharge. PLAN:: Per provider, due to ongoing rectal bleed, patient is being transferred to [facility] for further exploration of the cause of the bleeding.
--- NOTE | 2020-03-02 11:05 | W.PM.PROGNOT ---
Date of Service Date of service: 03/02/20 Time of Service: 11:05 Assessment and Plan Assessment and plan (1) Rectal bleeding: Start date: 03/02/20 Start time: 11:10 Status: Acute Assessment and plan: Continues to have rectal bleeding. Approx 500 ml this am per nursing staff. Received 4 units PRBC overnight, hemoglobin after infusion 9.6, continue to monitor H/H and transfuse as needed. Surgery consulted. Protonix 40 mg BID IVP, drip dcd NPO status (2) Colitis: Status: Acute Assessment and plan: CT suggest diverticulitis. continue cipro and flagyl day 2. continues to bleed see above. (3) Anemia: Start date: 03/02/20 Start time: 11:19 Status: Chronic Assessment and plan: In setting of GIB. Received 4 units PRBC, repeat HH every 4 hours as patient is still actively bleeding. (4) Non-ST elevation MD (NSTEMI): Start date: 03/02/20 Start time: 11:22 Status: Acute Assessment and plan: Acute GI bleed is especially concerning given recent non-ST elevation MD. . Continue to hold plavix and ASA as patient is actively bleeding. Also c/o CP this afternoon, will get EKG with serial troponins to r/o MD and CAD, in setting of recent MD with GIB. (5) Seizure: Start date: 03/02/20 Start time: 11:24 Status: Chronic Assessment and plan: Continue Keppra, convert to IV while n.p.o. (6) Abnormal transaminases: Start date: 03/02/20 Start time: 11:24 Status: Chronic Assessment and plan: This has been a chronic issue looking back. H/o regular alcohol use, but ALT more elevated with is less consistent with alcoholic hepatitis. Seems to predate statin prescription. Will review and get HCV/HBV screen if not done. (7) DVT prophylaxis: Start date: 03/02/20 Start time: 11:24 Status: Acute Assessment and plan: SCDs given acute bleed. (8) Right leg pain: Start date: 03/02/20 Start time: 11:24 Status: Acute Assessment and plan: c/o right leg pain, recent MD, will r/o DVT to RLE, likely RLS, patient is not able to give specifics except this hurts more at night, but has been ongoing for 6-7 weeks since MD. he did have Cardiac cath. Unsure which leg was used. above case discussed with Dr. Roper who is in agreement. Subjective Subjective Patient reports: other Interval history since last seen: Patient continues to have bloody bms with clots per nursing. Approx 500 ml bloody stool. After long discussion with patient regarding bleeding he is agreeable to treatment. If he needs a procedure he is agreeable. NPO at this time. He does also c/o rt leg pain worse at night but continues during the day for the last 6-7 weeks. Unlikely DVT as there is no pain or swelling, however given that he was in hospital for NSTEMI, will r/o DVT. Sounds as though more RLS, if DVT r/o negative will treat with low dose gabapentin. He denies CP, SOB, N/V/D. Exam Narrative Exam Narrative: GEN: Alert and oriented, pleasant, answers questions appropriately. HEENT: NC/AT. Conjunctiva clear, no icterus. PEERL, EOMI. no rhinorrhea. MMM, poor dentition, no OP lesions. Neck supple, no masses or LAD. LUNGS: CTAB with normal effort CV: RRR, no murmurs, gallups, or rubs ABD: +BS, soft, mild epigastric and lower abdominal tenderness. no masses palpable. No HSM or ascites, not distended. EXT: No cyanosis, clubbing, or edema. Legs not TTP. NEURO: Speech slow, normal coordination, moving 4 ext with normal sensation to light touch. no tremor. MSK: scar and deformity right arm. No joint redness or swelling SKIN: No rashes, bruises/petichea, or other lesions. PSYCH: Affect somewhat flat, normal mood. Objective Objective Clinical Data: Abnormal lab results 03/01/20 03/01/20 03/01/20 Range/Units 12:22 12:22 12:22 RBC 2.81 L (4.50-6.00) m/cumm Hgb 8.5 L (13.5-17.5) g/dL Hct 26.5 L (40.0-50.0) % RDW 14.2 H (11.8-14.1) % Plt Count 610 H (130-400) x1000/uL MPV (8.0-11.0) fL Absolute Monocytes 1.03 H (0.11-0.7) k/cumm ALT 64 H (16-63) U/L Albumin 2.7 L (3.4-5.0) g/dL Crossmatch See Detail 03/01/20 03/02/20 Range/Units 16:16 10:30 RBC 3.17 L (4.50-6.00) m/cumm Hgb 6.7 L* 9.6 L D (13.5-17.5) g/dL Hct 20.8 L* D 28.5 L D (40.0-50.0) % RDW 15.1 H (11.8-14.1) % Plt Count (130-400) x1000/uL MPV 7.9 L (8.0-11.0) fL Absolute Monocytes 1.11 H (0.11-0.7) k/cumm ALT (16-63) U/L Albumin (3.4-5.0) g/dL Crossmatch Vital Signs Temperature 36.3 C L 03/02/20 09:41 Temperature Source Temporal Artery Scan 03/02/20 07:23 Pulse 74 03/02/20 08:56 Pulse Rhythm Regular 03/02/20 07:40 Pulse 78 03/01/20 16:05 Respiratory Rate 16 03/02/20 08:56 Respiratory Effort 03/02/20 07:40 Respiratory Depth Normal 03/02/20 07:40 Respiratory Pattern Normal 03/02/20 07:40 Blood Pressure 126/77 03/02/20 08:56 Blood Pressure Mean 67 03/01/20 16:05 Blood Pressure Position Supine 03/01/20 12:16 Pulse Oximetry 98 03/02/20 08:56 Oxygen Delivery Method Room Air 03/02/20 08:56 Oxygen Flow Rate 0 03/02/20 08:56 Pain Level 4 03/02/20 07:23 Intake & Output 03/01/20 03/01/20 03/02/20 11:59 23:59 11:59 Intake Total 1869.833 / 9220.915 0030.500 / 2518.500 Output Total 1200 / 1200 Balance 1869.833 / 4129.731 3725.500 / 1318.500 Weight 61.9 kg 61.4 kg Intake: IV 1869.833 / 1869.833 593.500 / 593.500 Blood Product 1900 / 1900 Rbc Leuko Reduced Unit 350 / 350 [id number] Rbc Leuko Reduced Unit 500 / 500 [id number] Rbc Leuko Reduced Unit 700 / 700 [id number] Rbc Leuko Reduced Unit 350 / 350 [id number] Other Rbc Leuko Reduced Unit / [id number] Output: Stool 1200 / 1200 Other: Urine Appearance Clear Stool Size Moderate Stool Characteristics Liquid Bloody Emesis Description Bright Red Blood Laboratory Results WBC 7.63 k/cumm (4.4-10.8) 03/02/20 10:30 RBC 3.17 m/cumm (4.50-6.00) L 03/02/20 10:30 Hgb 9.6 g/dL (13.5-17.5) L D 03/02/20 10:30 Hgb Cancelled 03/02/20 10:30 Hct 28.5 % (40.0-50.0) L D 03/02/20 10:30 Hct Cancelled 03/02/20 10:30 MCV 89.9 fL (80-95) D 03/02/20 10:30 MCH 30.3 pg (27.0-33.0) 03/02/20 10:30 MCHC 33.7 g/dL (32.0-36.0) 03/02/20 10:30 RDW 15.1 % (11.8-14.1) H 03/02/20 10:30 Plt Count 293 x1000/uL (130-400) D 03/02/20 10:30 MPV 7.9 fL (8.0-11.0) L 03/02/20 10:30 Immature Gran % 0.8 % 03/02/20 10:30 Neutrophils % 56.3 03/02/20 10:30 Lymphocytes % 23.2 03/02/20 10:30 Monocytes % 14.5 03/02/20 10:30 Eosinophils % 4.7 03/02/20 10:30 Basophils % 0.5 03/02/20 10:30 Absolute Neutrophils 4.29 k/cumm (1.2-6.7) 03/02/20 10:30 Absolute Lymphocytes 1.77 k/cumm (1.2-3.4) 03/02/20 10:30 Absolute Monocytes 1.11 k/cumm (0.11-0.7) H 03/02/20 10:30 Absolute Eosinophils 0.36 k/cumm (0.0-0.7) 03/02/20 10:30 Absolute Basophils 0.04 k/cumm (0.0-0.2) 03/02/20 10:30 Sodium 136 mmol/L (136-145) 03/01/20 12:22 Potassium 4.8 mmol/L (3.5-5.1) 03/01/20 12:22 Chloride 101 mmol/L (98-107) 03/01/20 12:22 Carbon Dioxide 26.6 mmol/L (21.0-32.0) 03/01/20 12:22 Anion Gap 8.4 mmol/L (3-11) 03/01/20 12:22 BUN 17 mg/dL (7-18) 03/01/20 12:22 Creatinine 1.08 mg/dL (0.70-1.30) 03/01/20 12:22 Estimated GFR/1.73 m2 >= 60.00 (mL/min/1.73m2) 03/01/20 12:22 Glucose 97 mg/dL (74-106) 03/01/20 12:22 Calcium 9.3 mg/dL (8.5-10.1) 03/01/20 12:22 Magnesium 1.8 mg/dL (1.8-2.4) 03/01/20 12:22 Total Bilirubin 0.3 mg/dL (0.2-1.0) 03/01/20 12:22 AST 31 U/L (15-37) 03/01/20 12:22 ALT 64 U/L (16-63) H 03/01/20 12:22 Alkaline Phosphatase 91 U/L (46-116) 03/01/20 12:22 Troponin I < 0.05 ng/Ml (<0.06) 03/01/20 12:22 Total Protein 7.3 g/dL (6.4-8.2) 03/01/20 12:22 Albumin 2.7 g/dL (3.4-5.0) L 03/01/20 12:22 Patient ABO/Rh O Positive 03/01/20 12:22 Antibody Screen Negative 03/01/20 12:22 Crossmatch See Detail 03/01/20 12:22
[2020-03-02 12:13] LABS: Troponin I < 0.05 ng/Ml (<0.06)
--- NOTE | 2020-03-02 13:42 | NUR.NOTE ---
1114 patient complaioning of chest pain, photographic intelligence officer notified, provider Jolie notfied, EKG taken, VS Obtained, stable Nursing Note:
[2020-03-02 15:15] LABS: HCT 25.6 % (40.0-50.0); HGB 8.8 g/dL (13.5-17.5)
--- NOTE | 2020-03-02 15:16 | W.NUTCONSULT ---
Date of service: 03/02/20 Time of Service: 15:17 Nutritional Consult ASSESSMENT: 64 year old male with rectal bleeding, colitis and iron def anemia related to hx of GI bleed, diverticulitis. PMH: HTN, acute respiratory failure. Lives at the [facility]. Currently NPO. BMI wnl. Met with Juan Carlos today, appears malnourished (palor, muscle wasting) despite weight in acceptable range. Suspect po has not been meeting nutrient/protein needs for extended period of time. Per chart review, lost 500 ml blood via rectum today. Anemia being treated with transfusions. At high nutritional risk in view of NPO status and increased losses and poor overall nutritional status prior to this hospitalization. Estimated Nutrient Needs: [id number] kcal, 61-73 g protein, 1800 ml fluid. NUTRITIONAL DIAGNOSIS: Iron Deficiency Anemia Increased nutrient demands in view of significant blood loss via rectum INTERVENTION: Currently NPO day 2. If continues to be full code, will need to consider nutrition support if unable to advance diet in next 2 days. MONITORING AND EVALUATION: weight, diet, labs Time Spent in Nutritional Counseling and Treatment: 5 min spent with patient
--- NOTE | 2020-03-02 15:26 | W.PM.DS.N ---
Date of service: 03/02/20 Time of Service: 15:26 DS: Diagnosis Discharge Diagnosis (1) Rectal bleeding: Start date: 03/02/20 Start time: 15:26 Status: Acute Asessment and Plan: Patient continues to have rectal bleeding, large amount red liquid stool. He has had approx 1500 ml liquid bloody stool since this morning, he has received 4 units PRBC with last infusion this am. Initial repeat Hemoglobin 9.6 four hour repeat 8.8. Surgery consulted on patient, given recent [place] not a candidate for surgery at this facility spoke with [facility] they have agreed to transfer. Discharge Plan Disposition Patient Disposition: [facility] Condition: Stable Discharge Details Chief Complaint: GI Bleed Clinical Impression: Acute diverticulitis, Acute on chronic anemia, Colitis, Rectal bleeding, Dizziness Reason For Visit: ACUTE GI BLEED DIVERTICULITIS/COLITIS ACUTE ANEMIA Admit Date/Time: 03/02/20 08:43 Admit Provider: Landen Roper Attending Provider: Landen Roper Primary Care Provider: Tomer Yang ED Provider: Adrianne Salvador Hospital Course Hospital Course: 64 yo M who is currently at the [facility] for rehabilitation after NSTEMI 02/06/20 with ~40% LAD occlusion but no stent placed who presented to the emergency room with maroon stools since yesterday. Initially the patient presented early on the morning of admission, but his complaint was mistakingly understood as hematuria, and there was a report of negative hemoccult. The hemoglobin was 8.6, down from 10 the previous week. The patient returned later in the day reporting more dark blood in the stool with 3 quinn red blood stools with hemoglobin 6.7. He was placed on ASA 81 mg and clopidogrel 75 mg after recent admission for NSTEMI. He does have a history of ETOH use but denies use over last [address] obtained with findings of diverticulitis versus colitis on CT. Though BUN not suggestive of upper GI it is possible and he was placed on PPI drip on admission. During course of hospitalization he received 4 units of PRBC overnight with last transfusion this am and repeat hemoglobin post infusion 9.6, however he continues to have a large amount of liquid red blood, approx 1500 ml since this am. Repeat hemoglobin at 1500 8.8. Surgery evaluated patient, given recent [place] he is not a candidate for procedure at this facility. The plan was to stop asa and plavix then consider colonoscopy when bleeding improved, however given his large amount of rectal bleeding he would benefit from transfer to a tertiary center for this reason he is being transferred to [facility]. Home Meds and New Rx's Prescriptions: New ciprofloxacin HCl 500 mg tablet 500 mg PO BID 10 Days Qty: 20 RF: 0 metronidazole [Flagyl] 500 mg tablet 500 mg PO TID 10 Days Qty: 30 RF: 0 Continued losartan 50 mg Tablet 50 mg PO DAILY RF: 0 levetiracetam [Keppra] 500 mg Tablet 500 mg PO BID RF: 0 metoprolol succinate 100 mg Tablet Extended Release 24 Hr 125 mg PO DAILY RF: 0 thiamine HCl (vitamin B1) 100 mg Tablet 100 mg PO DAILY RF: 0 clopidogrel [Plavix] 75 mg Tablet 75 mg PO DAILY RF: 0 aspirin [Aspirin Low Dose] 81 mg Tablet,Delayed Release (Dr/Ec) 81 mg PO DAILY RF: 0 folic acid 1 mg Tablet 1 mg PO DAILY RF: 0 rosuvastatin 20 mg Tablet 20 mg PO DAILY RF: 0 acetaminophen [Tylenol] 325 mg Capsule 650 mg PO .Q6H PRN RF: 0 cyanocobalamin (vitamin B-12) [Vitamin B-12] 500 mcg Tablet 500 mcg PO DAILY RF: 0 ascorbic acid (vitamin C) 500 mg Tablet 500 mg PO BID RF: 0 ferrous sulfate 325 mg (65 mg iron) Tablet 325 mg PO BID RF: 0 Discharge Instructions Instructions: Diverticulitis (ED), Diverticulitis Diet (ED), Anemia (ED) Additional Instructions: Transfer to [facility] Activity:: Activity as Tolerated Diet:: NPO Discharge Orders Discharge Orders: Discharge Order (Routine); Ordered 03/02/20 Ordered By: Piedad Mccullough DS: Summary Status at Discharge Functional status at discharge: independent ambulation Overall status at discharge: patient is not back to baseline Mental Status: mental status grossly normal and other Speech and Movement: speech and movement normal Mood: other Affect: other Exam Narrative Exam Narrative: GEN: Alert and oriented, pleasant, answers questions appropriately. HEENT: NC/AT. Conjunctiva clear, no icterus. PEERL, EOMI. no rhinorrhea. MMM, poor dentition, no OP lesions. Neck supple, no masses or LAD. LUNGS: CTAB with normal effort CV: RRR, no murmurs, gallups, or rubs ABD: +BS, soft, mild epigastric and lower abdominal tenderness. no masses palpable. No HSM or ascites, not distended. EXT: No cyanosis, clubbing, or edema. Legs not TTP. NEURO: Speech slow, normal coordination, moving 4 ext with normal sensation to light touch. no tremor. MSK: scar and deformity right arm. No joint redness or swelling SKIN: No rashes, bruises/petichea, or other lesions. PSYCH: Affect somewhat flat, normal mood. Psych Mental Status: mental status grossly normal and other Speech and Movement: speech and movement normal Mood: other Affect: other DS: Data Vitals/I&O Vitals and I&O: Vital Signs Temperature 36.8 C 03/02/20 11:57 Temperature Source Temporal Artery Scan 03/02/20 11:57 Pulse 58 L 03/02/20 11:57 Pulse Rhythm Regular 03/02/20 07:40 Pulse 78 03/01/20 16:05 Respiratory Rate 18 03/02/20 11:57 Respiratory Effort 03/02/20 07:40 Respiratory Depth Normal 03/02/20 07:40 Respiratory Pattern Normal 03/02/20 07:40 Blood Pressure 120/71 03/02/20 11:57 Blood Pressure Mean 67 03/01/20 16:05 Blood Pressure Position Supine 03/01/20 12:16 Pulse Oximetry 99 03/02/20 11:57 Oxygen Delivery Method Room Air 03/02/20 11:57 Oxygen Flow Rate 0 03/02/20 11:57 Pain Level 2 03/02/20 11:57 Intake & Output 03/01/20 03/02/20 03/02/20 23:59 11:59 23:59 Intake Total 1869.833 / 9987.945 5275.500 / 3158.500 300 / 3158.500 Output Total 1200 / 5 825 / 2025 Balance 1869.833 / 6300.382 5076.500 / 1133.500 -525 / 1133.500 Weight 61.9 kg 61.4 kg Intake: IV 1869.833 / 1869.833 693.500 / 693.500 Oral 240 / 540 300 / 540 Blood Product 1900 / 1900 Rbc Leuko Reduced Unit 350 / 350 [id number] Rbc Leuko Reduced Unit 500 / 500 [id number] Rbc Leuko Reduced Unit 700 / 700 [id number] Rbc Leuko Reduced Unit 350 / 350 [id number] Other 25 / 25 Rbc Leuko Reduced Unit 25 / 25 [id number] Output: Urine / Stool 1200 / 2000 800 / 2000 Other: Urine Color Yellow Urine Appearance Clear Clear Urine Odor None Stool Size Moderate Stool Characteristics Liquid Liquid Bloody Bloody Emesis Description Bright Red Blood Voiding Methods Urinal Data Completed and Pending Completed studies during hospitalization [Text1]: Exam(s) a CT:CT abdomen & pelvis w EXAM: CT ABDOMEN PELVIS W CLINICAL HISTORY: lower abd pain, maroon colored stool TECHNIQUE: CT examination of the abdomen and pelvis was performed with bolus infusion of 89 cc of Omnipaque 350. COMPARISON: CT CHEST WO from 02/06/2020 CT CHEST WO from 02/06/2020 FINDINGS: Images obtained through the lung bases are unremarkable. No free intraperitoneal air seen. No free intraperitoneal fluid. There is a fat containing left inguinal hernia. No other significant abdominal wall hernia seen. The liver and spleen appear normal. Pancreatic contour is not ideally visualized due to patient motion but the pancreas is grossly intact. Gallbladder and bile ducts grossly unremarkable. Abdominal aorta is of normal diameter and no major vascular abnormality is seen. No significant retroperitoneal lymphadenopathy. Adrenals appear normal bilaterally. There is a low-attenuation homogeneous right renal cortical mass measuring up to 10 cm in diameter consistent with a cyst. Otherwise the kidneys are unremarkable, no hydronephrosis or nephrolithiasis. There is mild wall thickening of the descending and transverse duodenum and portions of the proximal jejunum. No small bowel obstruction. Cecum lies on the right side of the abdomen but there is no evidence of a cecal volvulus. There is question of wall thickening of portions of the descending and sigmoid colon with question mild associated fat edema, findings could represent colitis or diverticulitis. A few mildly prominent lymph nodes are seen in the pericolonic fat measuring up to about 7 millimeters in diameter. Findings are nonspecific but may represent chronic inflammatory process. Neoplastic disease not entirely excluded and follow-up colonoscopy recommended. There is fluid attenuation in the rectosigmoid consistent with the patient's history of diarrhea. IMPRESSION: Possible diverticulitis versus colitis. Mild prominence of sigmoid pericolonic lymph nodes, colonoscopy suggested for further evaluation when clinically appropriate. Right-sided cecum and ascending colon without evidence of volvulus at this time. 10 cm in diameter right renal cortical mass with appearance consistent with cyst. Fat containing left inguinal hernia, no bowel involvement. Exam(s) a US:US lower extremity venous RT EXAM: US LOWER EXTREMITY VENOUS RT CLINICAL HISTORY: r/0 DVT, pain to leg and numbness. TECHNIQUE: Ultrasound performed using standard protocol. COMPARISON: No exams were available for comparison FINDINGS: Duplex venous ultrasound was performed according to the usual protocol. The deep veins are freely compressible throughout and there is normal flow augmentation with manual calf compression. 2D and Doppler evaluation are unremarkable. IMPRESSION: No evidence of deep venous thrombosis of the right lower extremity DATA REPOSITORY: Labs on day of discharge: Labs from last 24 hours 03/02/20 03/02/20 03/02/20 23:30 22:30 19:30 WBC RBC Hgb Cancelled Pending Cancelled Hct Cancelled Pending Cancelled MCV MCH MCHC RDW Plt Count MPV Immature Gran % Neutrophils % Lymphocytes % Monocytes % Eosinophils % Basophils % Absolute Neutrophils Absolute Lymphocytes Absolute Monocytes Absolute Eosinophils Absolute Basophils Troponin I Patient ABO/Rh Antibody Screen Crossmatch 03/02/20 03/02/20 03/02/20 19:15 18:30 18:30 WBC RBC Hgb Cancelled Pending Cancelled Hct Cancelled Pending Cancelled MCV MCH MCHC RDW Plt Count MPV Immature Gran % Neutrophils % Lymphocytes % Monocytes % Eosinophils % Basophils % Absolute Neutrophils Absolute Lymphocytes Absolute Monocytes Absolute Eosinophils Absolute Basophils Troponin I Patient ABO/Rh Antibody Screen Crossmatch 03/02/20 03/02/20 03/02/20 15:30 15:07 15:07 WBC RBC Hgb Cancelled 8.8 L Hct Cancelled 25.6 L MCV MCH MCHC RDW Plt Count MPV Immature Gran % Neutrophils % Lymphocytes % Monocytes % Eosinophils % Basophils % Absolute Neutrophils Absolute Lymphocytes Absolute Monocytes Absolute Eosinophils Absolute Basophils Troponin I Pending Patient ABO/Rh Antibody Screen Crossmatch 03/02/20 03/02/20 03/02/20 11:30 11:15 11:13 WBC RBC Hgb Cancelled Cancelled Hct Cancelled Cancelled MCV MCH MCHC RDW Plt Count MPV Immature Gran % Neutrophils % Lymphocytes % Monocytes % Eosinophils % Basophils % Absolute Neutrophils Absolute Lymphocytes Absolute Monocytes Absolute Eosinophils Absolute Basophils Troponin I Cancelled Patient ABO/Rh Antibody Screen Crossmatch 03/02/20 03/02/20 03/02/20 10:30 10:30 10:30 WBC 7.63 RBC 3.17 L Hgb Cancelled 9.6 L D Hct Cancelled 28.5 L D MCV 89.9 D MCH 30.3 MCHC 33.7 RDW 15.1 H Plt Count 293 D MPV 7.9 L Immature Gran % 0.8 Neutrophils % 56.3 Lymphocytes % 23.2 Monocytes % 14.5 Eosinophils % 4.7 Basophils % 0.5 Absolute Neutrophils 4.29 Absolute Lymphocytes 1.77 Absolute Monocytes 1.11 H Absolute Eosinophils 0.36 Absolute Basophils 0.04 Troponin I < 0.05 Patient ABO/Rh Antibody Screen Crossmatch 03/01/20 03/01/20 03/01/20 22:00 16:16 12:22 WBC RBC Hgb Cancelled 6.7 L* Hct Cancelled 20.8 L* D MCV MCH MCHC RDW Plt Count MPV Immature Gran % Neutrophils % Lymphocytes % Monocytes % Eosinophils % Basophils % Absolute Neutrophils Absolute Lymphocytes Absolute Monocytes Absolute Eosinophils Absolute Basophils Troponin I Patient ABO/Rh O Positive Antibody Screen Negative Crossmatch See Detail 03/02/20 09:15 Nose MRSA Screen - Pending Preliminary micro results at discharge 03/02/20 09:15 MRSA Screen - Pending Nose [facility] Medical History C2 cervical fracture (Inactive) Essential hypertension (Acute) Non-ST elevation [place] (NSTEMI) (Inactive) Family History Mother Neoplasm BREAST Father Neoplasm PROSTATE Sister Neoplasm HIPS Sister Heart murmur Neoplasm BREAST Grandmother Heart disease Stroke Social History Smoking/Tobacco Use Status: Never Drug use: Rarely Substance use type: marijuana Do you feel safe at home: Yes Do you feel safe in your relationship?: Yes Additional Social history: currently at [facility], lives at home off [address] in [place] 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 with 3 adult children
[2020-03-02 15:32] LABS: Troponin I < 0.05 ng/Ml (<0.06)
--- NOTE | 2020-03-02 16:29 | W.PALLCONSUL ---
Date of service: 03/02/20 Time of Service: 14:00 History of Present Illness History of Present Illness Chief Complaint: GI Bleed Narrative: Juan Carlos Bundy is a very pleasant 64 year old man with a past medical history significant for HTN and recent NSTEMI 02/06/20 for which he underwent [place] cardiac [place] [facility] [place] was found to have 40% occlusion of LAD with no stent placement. He was initiated on ASA and plavix at that time. He then presented to the hospital with bloody stools yesterday on 03/01/20. He was admitted to the hospitalist service. He has received a total of 4 units of PRBCs. He is also being treated with flagyl and cipro for possible diverticulitis. Initially, Mr. Bundy was reluctant to have any type of procedure done and requested to go home and . He is a FULL code. Palliative care was consulted to discuss goals of care with Mr. Bundy. At the time of the visit, Juan Carlos states that he is agreeable to any type of procedure that is deemed necessary. He was initially reluctant to be transferred to a tertiary care facility, however when he understood that he would not be a candidate for any procedure at [facility] due to his recent [place], he agreed to transfer to [facility] if indicated. In discussing goals of care, he is clear that if his condition should worsen and is imminent, he wants to be transferred home. He is clear that he wants to at home. He was not ready to commit to a dnr/dni status. He indicated that he may consider this in the future, but at this time he wishes to remain a FULL CODE. If he is unable to make healthcare decisions, he has named Lisha Guerin to make those decisions for him. Care Management is working on getting his health care agent in writing. Since the time of the visit, he continued to have large amounts of bloody stool and continued to have a drop in Hgb. He was accepted in transfer [place] [facility] [place] further evaluation of the bleeding and intervention as indicated. He will benefit from palliative follow up after he is discharged home from [facility]. Assessment and Plan Assessment and plan (1) Palliative care patient: Status: Acute Assessment and plan: Mr. Bundy is being transferred to [facility] [place] further evaluation of GI bleeding as well as intervention as indicated. He remains a FULL code. He named Lisha Guerin to make medical decisions for him if he is unable to do so. Should his condition worsen, and it appears is imminent, he wishes to be transferred home where he wants to . At this point, however, he remains a FULL CODE and is accepting of any intervention deemed necessary by medical assisting program director. He would benefit from outpatient palliative follow up to continue to discuss goals of care after he is discharged home from [facility]. Review of Systems Narrative: He reports some dizziness when he gets OOB, no fever or chills. He has occasional SOB, no cough or wheezing. No CP, pressure or palpitations at present. He has intermittent abdominal and rectal cramps prior to diarrhea. He is having frequent bloody stools. He denies any other pain. [facility] Medical History C2 cervical fracture (Inactive) Essential hypertension (Acute) Non-ST elevation [place] (NSTEMI) (Inactive) Family History Mother Neoplasm BREAST Father Neoplasm PROSTATE Sister Neoplasm HIPS Sister Heart murmur Neoplasm BREAST Grandmother Heart disease Stroke Social History Smoking/Tobacco Use Status: Never Drug use: Rarely Substance use type: marijuana Do you feel safe at home: Yes Do you feel safe in your relationship?: Yes Additional Social history: currently at [facility], lives at home off [address] in [place] 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 with 3 adult children Exam Narrative Exam Narrative: General: Alert and oriented, answers questions appropriately, slow to respond to some questions. Skin is pale. HEENT: normocephalic, atraumatic, pupils equal and round, EOMI, poor dentition, mucous membranes dry. Neck: supple, no JVD. Cardiovascular: heart has regular rate and rhythm, no murmur appreciated. Respiratory: respirations even and unlabored, lung sounds clear on limited anterior and lateral exam. GI: abdomen soft, midepigastric tenderness and mild tenderness across lower abdomen. Nondistended. Extremities: no clubbing, cyanosis or edema. Results Last Vital Signs Temp 36.9 C 03/02/20 15:25 Pulse 74 03/02/20 15:25 Resp 17 03/02/20 15:25 BP 136/72 03/02/20 15:25 Pulse Ox 99 03/02/20 15:25 Labs Result diagrams: 03/02/20 15:07 03/01/20 12:22 Labs: Laboratory Results - last 24 hr 03/01/20 03/01/20 03/01/20 12:22 16:16 22:00 WBC RBC Hgb 6.7 L* Cancelled Hct 20.8 L* D Cancelled MCV MCH MCHC RDW Plt Count MPV Immature Gran % Neutrophils % Lymphocytes % Monocytes % Eosinophils % Basophils % Absolute Neutrophils Absolute Lymphocytes Absolute Monocytes Absolute Eosinophils Absolute Basophils Troponin I Patient ABO/Rh O Positive Antibody Screen Negative Crossmatch See Detail 03/02/20 03/02/20 03/02/20 10:30 10:30 10:30 WBC 7.63 RBC 3.17 L Hgb 9.6 L D Cancelled Hct 28.5 L D Cancelled MCV 89.9 D MCH 30.3 MCHC 33.7 RDW 15.1 H Plt Count 293 D MPV 7.9 L Immature Gran % 0.8 Neutrophils % 56.3 Lymphocytes % 23.2 Monocytes % 14.5 Eosinophils % 4.7 Basophils % 0.5 Absolute Neutrophils 4.29 Absolute Lymphocytes 1.77 Absolute Monocytes 1.11 H Absolute Eosinophils 0.36 Absolute Basophils 0.04 Troponin I < 0.05 Patient ABO/Rh Antibody Screen Crossmatch 03/02/20 03/02/20 03/02/20 11:13 11:15 11:30 WBC RBC Hgb Cancelled Cancelled Hct Cancelled Cancelled MCV MCH MCHC RDW Plt Count MPV Immature Gran % Neutrophils % Lymphocytes % Monocytes % Eosinophils % Basophils % Absolute Neutrophils Absolute Lymphocytes Absolute Monocytes Absolute Eosinophils Absolute Basophils Troponin I Cancelled Patient ABO/Rh Antibody Screen Crossmatch 03/02/20 03/02/20 03/02/20 15:07 15:07 15:30 WBC RBC Hgb 8.8 L Cancelled Hct 25.6 L Cancelled MCV MCH MCHC RDW Plt Count MPV Immature Gran % Neutrophils % Lymphocytes % Monocytes % Eosinophils % Basophils % Absolute Neutrophils Absolute Lymphocytes Absolute Monocytes Absolute Eosinophils Absolute Basophils Troponin I < 0.05 Patient ABO/Rh Antibody Screen Crossmatch 03/02/20 03/02/20 03/02/20 18:30 19:15 19:30 WBC RBC Hgb Cancelled Cancelled Cancelled Hct Cancelled Cancelled Cancelled MCV MCH MCHC RDW Plt Count MPV Immature Gran % Neutrophils % Lymphocytes % Monocytes % Eosinophils % Basophils % Absolute Neutrophils Absolute Lymphocytes Absolute Monocytes Absolute Eosinophils Absolute Basophils Troponin I Patient ABO/Rh Antibody Screen Crossmatch 03/02/20 23:30 WBC RBC Hgb Cancelled Hct Cancelled MCV MCH MCHC RDW Plt Count MPV Immature Gran % Neutrophils % Lymphocytes % Monocytes % Eosinophils % Basophils % Absolute Neutrophils Absolute Lymphocytes Absolute Monocytes Absolute Eosinophils Absolute Basophils Troponin I Patient ABO/Rh Antibody Screen Crossmatch
[2020-03-06] MEDS: Normal Saline Flush 10 ML SYR IVP (03:29)
== END 2020-03-02 16:48 | disposition short-term general hospital (02) | DRG 392 ==
LOC: ER 16:56 → MS 03-02 09:08
PROVIDERS: Nurse Practitioner Family; Admitting Provider Family Medicine; Emergency Provider Physician Assistant; PCP Family Medicine; Visit Provider Family Medicine
DX: K57.32 Diverticulitis of large intestine without perforation or abscess without bleeding (principal); K62.5 Hemorrhage of anus and rectum; D62 Acute posthemorrhagic anemia; D64.9 Anemia, unspecified; I25.2 Old myocardial infarction; Z79.02 Long term (current) use of antithrombotics/antiplatelets; Z79.82 Long term (current) use of aspirin; G40.909 Epilepsy, unspecified, not intractable, without status epilepticus; R74.0 Nonspecific elevation of levels of transaminase and lactic acid dehydrogenase [LDH]; I10 Essential (primary) hypertension; M79.661 Pain in right lower leg
CPT/HCPCS: 36415; 36430; 80053; 85027; 86850; 86900; 86901; 86920; 87081; 96360; 96361; 99222; 99233; 99239; 99253; 99283; 99285; 74177; 81003; 83735; 84484; 85014; 85018; 85025; 85610; 85730; 87086; 93005; 93010; 93971; J0131; J0744; J1953; J2597; J3490; P9016

== ENCOUNTER 2020-03-15 01:37 | Outpatient (CLI) | payer MEDICARE, SELFPAY ==
[2020-03-15 16:54] LABS: HCT 27.8 % (40.0-50.0); HGB 8.8 g/dL (13.5-17.5); Mean Corp. HGB Concentration 31.7 g/dL (32.0-36.0); Mean Corpuscular Hemoglobin 30.3 pg (27.0-33.0); Mean Corpuscular Volume 95.9 fL (80-95); Mean Platelet Volume 7.9 fL (8.0-11.0); Platelet Count 585 x1000/uL (130-400); White Blood Cell Count 6.73 k/cumm (4.4-10.8)
== END 2020-03-15 01:57 ==
PROVIDERS: PCP Family Medicine; Visit Provider Family Medicine
DX: K62.5 Hemorrhage of anus and rectum (principal)
CPT/HCPCS: 36415; 85027

== ENCOUNTER 2020-04-12 03:49 | Outpatient (CLI) | payer MEDICARE, SELFPAY ==
[2020-04-12 14:55] LABS: HGB 10.9 g/dL (13.5-17.5); Mean Corp. HGB Concentration 32.1 g/dL (32.0-36.0); Mean Corpuscular Hemoglobin 30.1 pg (27.0-33.0); Mean Corpuscular Volume 93.9 fL (80-95); Mean Platelet Volume 8.1 fL (8.0-11.0); Platelet Count 427 x1000/uL (130-400); RBC 3.62 m/cumm (4.50-6.00); RBC Distribution Width 14.3 % (11.8-14.1); White Blood Cell Count 6.82 k/cumm (4.4-10.8)
== END 2020-04-12 04:09 ==
PROVIDERS: PCP Family Medicine; Visit Provider Family Medicine
DX: K92.2 Gastrointestinal hemorrhage, unspecified (principal)
CPT/HCPCS: 36415; 85027

== ENCOUNTER 2023-06-10 21:10 | Inpatient (IN) | payer MEDICARE, SELFPAY ==
[2023-06-10] VITALS (30 sets, daily range): BP systolic 116–164; BP diastolic 57–84; PULSE 102–130; RESP 11–22; TEMP 36.7; O2SAT 94–99
--- NOTE | 2023-06-10 21:15 | RT.EKG_ITS ---
APPROVED REPORT Exam: Resting ECG Reason for Exam: seizure Patient Location: E HR:119 bpm ECG Measurements Heart Rate 119 AXIS DC 160 P 31 QRSd 116 QRS 30 QT 327 T -59 QTc 461 Conclusion Sinus tachycardia...rate> 99 Probable left atrial enlargement...P >50mS, <-0.10mV V1 Nonspecific intraventricular conduction delay...QRSd >115mS, not LBBB/RBBB Inferior infarct, age indeterminate...Q>35mS, T neg, II III aVF Nonspecific T abnormalities, lateral leads...T <-0.10mV, I aVL V5 V6
--- NOTE | 2023-06-10 21:15 | DI.CT_ITS ---
Exam(s) CT HEAD CERVICAL SPINE WO EXAM: CT HEAD CERVICAL SPINE WO CLINICAL HISTORY: seizure, fall. TECHNIQUE: Imaging Protocol: Axial computed tomography images with coronal and sagittal reformatted images were created and reviewed COMPARISON: CT CT HEAD CERVICAL SPINE WO from 02/06/2020 FINDINGS: The examination is limited due to patient motion artifact. CT Head: Ventricles and Extra axial spaces: Normal in size and morphology for the patient's age. Hemorrhage: None. Cerebral parenchyma: No acute territorial infarct. There are areas of decreased attenuation in the w ruth matter consistent with small vessel ischemic disease. Midline shift: None. Brainstem/Cerebellum: Normal. Calvarium: Normal. Visualized Paranasal sinuses/Mastoids: Clear. Soft Tissues: Unremarkable. CT Cervical Spine: Bones: No acute fracture or subluxation. Degenerative changes are seen in the cervical spine. MRI ma y be considered for further evaluation. Soft Tissues: Unremarkable. Lung Apices: Clear. IMPRESSION: 1. Examination limited by patient motion artifact, particularly affecting the cervical spine examinat ion. 2. No acute intracranial process. 3. No acute fracture or subluxation in the cervical spine. RADIATION DOSE DELIVERED: Total DLP DATA REPOSITORY: All CT scans at this facility are submitted to the National Radiology Data Registry (NRDR) Dose Index Registry (DIR) with the [employer] (ACR). RADIATION OPTIMIZATION: All CT scans at this facility use at least one of these dose optimization te chniques: automated exposure control; mA and/or kV adjustment per patient size (includes targeted exa ms where dose is matched to clinical indication); or iterative reconstruction.
--- NOTE | 2023-06-10 21:18 | DI.RAD_ITS ---
Exam(s) XR CHEST 1V IN DI DEPT EXAM: XR CHEST 1V IN DI DEPT CLINICAL HISTORY: ?aspiration TECHNIQUE: 2D digital imaging was performed of the chest. One image was obtained. An AP view was ob tained. COMPARISON: CR,XR XR PORTABLE CHEST AP from 02/06/2020 FINDINGS: There is poor inspiration. MEDIASTINUM: Normal. HEART: Normal. PULMONARY VASCULATURE: Normal. LUNGS: Clear. PLEURAL SPACE: No pleural effusion or pneumothorax. BONE:Within normal limits for the patient's age. OTHER FINDINGS:Normal. IMPRESSION: No acute pulmonary findings. DATA REPOSITORY: RADIATION DOSE DELIVERED:
[2023-06-10] MEDS: Normal Saline 1,000 ML 1000 ML IV (21:20)
--- NOTE | 2023-06-10 21:23 | W.ED.GENAD ---
Discharge Plan Disposition Condition: Stable Discharge Details Chief Complaint: Seizure Clinical Impression: Seizure, Altered mental status, Post-ictal state Primary Care Provider: Tomer Yang ED Provider: Mohinder Webb [place] Meds and New Rx's Prescriptions: No Action metoprolol succinate 100 mg capsule,sprinkle,ER 24hr 100 mg PO DAILY gabapentin 300 mg capsule 300 mg PO QHS Qty: 90 0RF losartan 25 mg tablet 25 mg PO DAILY Qty: 90 0RF Rx Instructions: Updated Rx with no refills. Thx losartan 50 mg Tablet 50 mg PO DAILY levetiracetam [Keppra] 500 mg Tablet 500 mg PO BID metoprolol succinate 100 mg Tablet Extended Release 24 Hr 125 mg PO DAILY thiamine HCl (vitamin B1) 100 mg Tablet 100 mg PO DAILY clopidogrel [Plavix] 75 mg Tablet 75 mg PO DAILY Hold Instructions: Changed by Provider aspirin [Golden Low Dose Aspirin] 81 mg Tablet,Delayed Release (Dr/Ec) 81 mg PO DAILY Hold Instructions: Changed by Provider folic acid 1 mg Tablet 1 mg PO DAILY rosuvastatin 20 mg Tablet 20 mg PO DAILY acetaminophen [Tylenol] 325 mg Capsule 650 mg PO .Q6H PRN cyanocobalamin (vitamin B-12) [Vitamin B-12] 500 mcg Tablet 500 mcg PO DAILY ascorbic acid (vitamin C) 500 mg Tablet 500 mg PO BID ferrous sulfate 325 mg (65 mg iron) Tablet 325 mg PO BID Medical Decision Making 68 yo male with hx of seizures and unclear if he is still taking antiepileptics, who comes in with ems with seizure. He was a quaker service tonight when he started to have a tonic clonic seizures so bystanders called ems. When ems arrived he was still having a tonic clonic seizure so he was given 10mg IM midazolam and the seizure stopped, approximtely lasted about 15 minutes. He arrives lethargic and snoring, he will withdraw his extremities to painful stimuli and groan but doesn't talk or follow commands. He has clear lungs, no signs of trauma, soft abdomen. Suspect he is post ictal and also now has benzo's on board, do not feel he requires intubation currently, will proceed with IV keprra, ct head/c spine, cxr, cbc, cmp ua, urine drug screen and monitor. labs and imaging unremarkable, pt still lethargic but is now making spontaneous movements, scratched his nose with both hands to itch it, withdraws extremities to painful stimuli in all extremities with minor painful stimuli. Given continued lethargy in post ictal state, will discuss with hospiatlist about admission for continued obs. Differential Diagnosis Differential Diagnosis: seizure, electrolyte abnormality Medical Records Medical records reviewed: Yes I reviewed the patient's medical records. Imaging Data Radiologic Study: Attestation: I personally reviewed and interpreted this imaging study as follows: Imaging: CT Scan Radiologist's impression: no acute findings Radiologic Study #2: Attestation: I personally reviewed and interpreted this imaging study as follows: Imaging: X-Ray Radiologist's impression: no acute findings Lab Data Lab results reviewed: Yes I reviewed the patient's lab results. ECG Data Attestation: I personally reviewed and interpreted this ECG (s) as follows: Prior ECG tracings: not available for review Interpretation: sinus tach, rate of 119, pr 160, no stemi HPI General Mode of arrival: EMS. Date/Time Provider Initiated Documentation: 06/10/23 21:14. Limitations to Documentation: altered mental status. Information obtained by: EMS. History of Present Illness 68 year old M presents to the emergency department with the chief complaint of seizure, described as moderate, Patient started experiencing this hour(s) (1) and it has been now resolved. Patient did receive the following treatments prior to arrival, other (IM midazolam) Related Data Home Medications Medication Instructions Recorded Confirmed acetaminophen 325 mg capsule 650 mg PO .Q6H PRN 03/01/20 04/06/20 (Tylenol) ascorbic acid (vitamin C) 500 mg 500 mg PO BID 03/01/20 04/06/20 tablet aspirin 81 mg tablet,delayed 81 mg PO DAILY 03/01/20 04/06/20 release (Golden Low Dose Aspirin) clopidogrel 75 mg tablet (Plavix) 75 mg PO DAILY 03/01/20 04/06/20 cyanocobalamin (vitamin B-12) 500 500 mcg PO DAILY 03/01/20 04/06/20 mcg tablet (Vitamin B-12) ferrous sulfate 325 mg (65 mg 325 mg PO BID 03/01/20 04/06/20 iron) tablet folic acid 1 mg tablet 1 mg PO DAILY 03/01/20 04/06/20 levetiracetam 500 mg tablet 500 mg PO BID 03/01/20 04/06/20 (Keppra) losartan 50 mg tablet 50 mg PO DAILY 03/01/20 04/06/20 metoprolol succinate 100 mg 125 mg PO DAILY 03/01/20 04/06/20 tablet,extended release 24 hr rosuvastatin 20 mg tablet 20 mg PO DAILY 03/01/20 04/06/20 thiamine HCl (vitamin B1) 100 mg 100 mg PO DAILY 03/01/20 04/06/20 tablet metoprolol succinate 100 mg 100 mg PO DAILY 03/13/20 04/06/20 capsule sprinkle, ext. release 24 hr gabapentin 300 mg capsule 300 mg PO QHS #90 caps 05/21/21 losartan 25 mg tablet 25 mg PO DAILY #90 tabs 05/21/21 Previous Rx's Medication Instructions Recorded gabapentin 300 mg capsule 300 mg PO QHS #90 caps 05/21/21 losartan 25 mg tablet 25 mg PO DAILY #90 tabs 05/21/21 Allergies Allergy/AdvReac Type Severity Reaction Status Date / Time oxycodone Allergy Severe off the Unverified 06/29/20 13:26 wall Penicillins Allergy Severe Unverified 06/29/20 13:26 Sulfa (Sulfonamide Allergy Unknown Unverified 06/29/20 13:26 Antibiotics) General KJ: 2 Review of Systems Unobtainable due to mental status PFSH All Active Problems (Updated 06/10/23 @ 22:41 by Mohinder Webb MD) Seizure (Acute) Altered mental status (Acute) Post-ictal state (Acute) Restless legs syndrome (RLS) (Acute) Crushing injury of upper extremity (Acute) CAD (coronary artery disease) (Chronic) NSTEMI 01/2020 Right leg pain (Acute) Abnormal transaminases (Chronic) DVT prophylaxis (Acute) Acute on chronic anemia (Acute) Colitis (Acute) Rectal bleeding (Acute) Dizziness (Acute) Acute dehydration (Acute) Essential hypertension (Acute) Blood Pressure Check (Chronic) Hypertension (Chronic) better Medical History (Updated 06/10/23 @ 22:41 by Mohinder Webb MD) Anemia C2 cervical fracture Non-ST elevation [place] (NSTEMI) 02/06/20 Palliative care patient Family History Mother Neoplasm BREAST Father Neoplasm PROSTATE Sister Neoplasm HIPS Sister Heart murmur Neoplasm BREAST Grandmother Heart disease Stroke Social History (Updated 03/23/20 @ 16:10 by Nuha Haddad NP) Smoking/Tobacco Use Status: Never Smoking risk assessment performed?: Yes Drug use: Rarely Substance use type: marijuana Do you feel safe at home: Yes Do you feel safe in your relationship?: Yes Additional Social history: lives alone at home off 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 with 3 adult children. only has contact with one son. Exam HENMT Head: normal to inspection Ears: external ears normal General nose exam: external nose normal Mouth: moist mucous membranes Eyes General: appearance normal, both eyes and all related structures Neck Neck: normal visual inspection Resp Effort & Inspection: normal respiratory effort Cardio Jugular venous pressure: no JVD Rate: tachycardic Heart Sounds: no murmurs GI Inspection: non-distended Palpation: soft, not firm and no guarding Skin General skin exam: no rashes or lesions noted Extrem General: normal to inspection
[2023-06-10 21:24] LABS: Abs Immature Grans 0.07 10^3/uL (0.0-0.06); Absolute Basophil Count 0.05 10^3/uL (0.0-0.2); Absolute Eosinophil Count 0.13 10^3/uL (0.0-0.7); Absolute Lymphocyte Count 3.83 10^3/uL (1.2-3.4); Absolute Neutrophil Count 2.85 10^3/uL (1.2-6.7); Basophils % 0.6; Eosinophils % 1.6; HCT 39.2 % (40.0-50.0); HGB 12.8 g/dL (13.5-17.5); Immature Grans % 0.9; Lymphocytes % 48.3; MCH 30.8 pg (27.0-33.0); MCHC 32.7 % (32.0-36.0); MCV 95 fL (80-95); MPV 8.1 fL (8.0-11.0); Monocytes % 12.6; Platelet Count 266 10^3/uL (130-400); RBC 4.15 10^6/uL (4.36-5.78); RDW 12.7 % (11.8-14.1); RDW-SD 44.2 fL; WBC 7.93 10^3/uL (4.4-10.8)
[2023-06-10 21:38] LABS: ETHANOL BLOOD < 3.0 mg/dL (<10)
[2023-06-10 21:43] LABS: ALT 15 U/L (16-63); AST 19 U/L (15-37); Albumin 3.4 g/dL (3.4-5.0); Alkaline Phosphatase 87 U/L (46-116); Anion Gap 23.4 mmol/L (3-11); BUN 14 mg/dL (7-18); Bilirubin, Total 0.3 mg/dL (0.2-1.0); CO2 14.6 mmol/L (21.0-32.0); CREATININE 1.6 mg/dL (0.70-1.30); Calcium 8.7 mg/dL (8.5-10.1); Chloride 97 mmol/L (98-107); Estimated GFR 46.35 (mL/min/1.73m2); Glucose 210 mg/dL (74-106); Magnesium 1.9 mg/dL (1.8-2.4); Potassium 3.3 mmol/L (3.5-5.1); Sodium 135 mmol/L (136-145); Troponin I < 50 ng/L (<or=60)
[2023-06-10 21:45] LABS: PTT Activated 24.5 sec (21.5-31.9)
--- NOTE | 2023-06-10 22:01 | DI.VRAD_ITS ---
PROCEDURE INFORMATION: Exam: CT Head Without Contrast Exam date and time: 06/10/2023 9:42 PM Age: 68 years old Clinical indication: Other: Seizure, fall TECHNIQUE: Imaging protocol: Computed tomography of the head without contrast. COMPARISON: CT HEAD CERVICAL SPINE WO 02/06/2020 5:14 AM FINDINGS: Brain: Prominence of cerebral sulci reflects diffuse cerebral atrophy. Poorly marginated hypodensities seen throughout the deep and periventricular white matter of both cerebral hemispheres are consistent with underlying microvascular ischemic changes. Brainstem and cerebellum are unremarkable and there is no evidence of acute transcortical infarction or recent intracranial hemorrhage. Cerebral ventricles: Dilatation of the 3rd and lateral ventricles is commensurate with the degree of cerebral atrophy. Paranasal sinuses: Grossly clear throughout. Mastoid air cells: Grossly clear bilaterally. Bones/joints: Bony calvarium and skull base are intact and no acute fractures are detected. Soft tissues: Unremarkable. IMPRESSION: Diffuse atrophy and chronic ischemic changes with no evidence of acute transcortical infarction, recent hemorrhage or hydrocephalus. No acute intracranial process is detected. PROCEDURE INFORMATION: Exam: CT Cervical Spine Without Contrast Exam date and time: 06/10/2023 9:42 PM Age: 68 years old Clinical indication: Other: Seizure, fall TECHNIQUE: Imaging protocol: Computed tomography of the cervical spine without contrast. COMPARISON: CT HEAD CERVICAL SPINE WO 02/06/2020 5:14 AM FINDINGS: Bones/joints: There is arthrosis involving the anterior atlantodental interval with loss of joint space and marginal osteophyte formation and the odontoid process is grossly intact. There is grade 1 retrolisthesis of C3 upon C4 and there is gross preservation of vertebral body height throughout cervical levels with no vertebral body fractures or other significant subluxations detected. Changes of facet arthropathy are most advanced at C2-C3 on the left with no acute fractures detected involving the posterior elements of the cervical spine. Discs/Spinal canal/Neural foramina: Loss of disc space height with posterior osteocartilaginous ridging is most significant at C3-C4, C4-C5, C5-C6 and C6-C7 resulting in canal stenoses and suspected mass-effect upon the ventral cord which could be better evaluated with MRI. Uncovertebral and facet changes produce multilevel foraminal distortions/narrowings. Lungs: No pneumothorax or consolidation detected at the lung apices. Soft tissues: Unremarkable. IMPRESSION: Cervical spondylosis with central canal and foraminal narrowing as above. No acute cervical fractures are detected. Dictated and Authenticated by: Billy Florian MD. Ordering:YESSICA Vines MD
--- NOTE | 2023-06-10 22:13 | NUR.NOTE ---
Nursing Note: Report to kita DE LOS SANTOS
--- NOTE | 2023-06-10 22:22 | DI.VRAD_ITS ---
PROCEDURE INFORMATION: Exam: XR Chest Exam date and time: 06/10/2023 9:48 PM Age: 68 years old Clinical indication: Other: Seizure, fall TECHNIQUE: Imaging protocol: Radiologic exam of the chest. Views: 1 view. COMPARISON: CT CHEST WO 02/06/2020 5:35 AM FINDINGS: Lungs: Unremarkable. No consolidation. Pleural spaces: Unremarkable. No pleural effusion. No pneumothorax. Heart/Mediastinum: Unremarkable. No cardiomegaly. Bones/joints: Unremarkable. IMPRESSION: No acute findings. Dictated and Authenticated by: Mohinder Desouza MD. Ordering:YESSICA Vines MD
[2023-06-10 22:23] LABS: Bilirubin Negative (Negative); Blood Trace-intact (Negative); Clarity Clear (Clear); Glucose Negative (Negative); Ketones Negative (Negative); Leukocyte Esterase Negative (Negative); Nitrite Negative (Negative); Specific Gravity 1.015 (1.005-1.025); Urobilinogen 0.2 mg/dL (Up to 0.2)
[2023-06-10 22:32] LABS: Bacteria Rare HPF (Negative); C & S Indicated? No; Crystals Negative HPF (Negative); Epithelial Cells Rare HPF (Negative); Mucus Negative (Negative); RBC 0-2 HPF (0-2); WBC 0-2 HPF (0-5)
[2023-06-10 22:45] LABS: *AMPHETAMINES SCREEN URINE Negative (Negative); *BARBITURATES SCREEN URINE Negative (Negative); *BENZODIAZEPINES SCREEN URINE Positive (Negative); Cannabinoids THC Negative (Negative); Cocaine Screen,Urine Negative (Negative); METHADONE URINE SCREEN Negative (Negative); OPIATES URINE SCREEN Negative (Negative); Tricyclic Antidepressants Negative (Negative)
--- NOTE | 2023-06-10 22:45 | HPE_ITS ---
Date of service: 06/10/23 Time of Service: 23:08 Assessment and Plan Assessment and plan (1) Seizure: Status: Acute Assessment and plan: Known history of seizure disorder, apparently off of his Keppra therapy. He was loaded with Keppra in the ED. Will continue by resuming his home dosing. Oral if he can take it in the morning, otherwise change to IV. No evidence of a stroke on CT to trigger this, likely just being off medication. (2) Post-ictal state: Status: Acute Assessment and plan: He appears to be protecting his airway, but he is still quite sedated. Likely post-ictal as well as under the influence of midazolam. No other drugs on UDS, negative EtOH. Given his mental status, we decided to monitor him in the ICU overnight (3) CAD (coronary artery disease): Status: Chronic Assessment and plan: Will resume ASA, statin when able to take oral medication. (4) Essential hypertension: Status: Acute Assessment and plan: Resume BP meds when able to safely take po, starting with metoprolol. (5) Anemia: Assessment and plan: Mild anemia, that is chronic. Assess as outpatient. (6) Renal insufficiency: Status: Chronic Assessment and plan: Acute vs chronic. Will monitor. Replacing potassium, monitor lytes as well. (7) DVT prophylaxis: Status: Acute Assessment and plan: given history of GI bleed, use mechanical methods for now. History of Present Illness History of Present Illness Chief Complaint: seizure Narrative: 68 yo M with history of CAD and seizure disorder who apparently has been out of care since 2019 brought to the ED by EMS after a witnessed seizure. Per bystander report, he was in orthodox this evening when he started having generalized tonic/clonic seizure. He was still seizing when EMS arived and was given 10mg IM midazolam. The seizures subsequently stopped, estimated total duration was 15 minutes. He has been lethargic and snoring since arriving. He is unable to give additional history. Bystanders did not report that he was having chest pain or complaining of other pain. He was cared for regularly by [facility] until June of 2020. We don't have records of other care including medical therapy for coronary disease or seizures since then. Review of Systems Narrative: Unable to perform ROS due to mental status PFSH All Active Problems (Updated 06/10/23 @ 22:48 by Landen Roper) Renal insufficiency (Chronic) Seizure (Acute) Altered mental status (Acute) Post-ictal state (Acute) Restless legs syndrome (RLS) (Acute) Crushing injury of upper extremity (Acute) CAD (coronary artery disease) (Chronic) NSTEMI 01/2020 Right leg pain (Acute) Abnormal transaminases (Chronic) DVT prophylaxis (Acute) Acute on chronic anemia (Acute) Colitis (Acute) Rectal bleeding (Acute) Dizziness (Acute) Acute dehydration (Acute) Essential hypertension (Acute) Blood Pressure Check (Chronic) Hypertension (Chronic) better Medical History (Updated 06/10/23 @ 22:48 by Landen Roper) Anemia C2 cervical fracture Non-ST elevation [place] (NSTEMI) 02/06/20 Palliative care patient Family History Mother Neoplasm BREAST Father Neoplasm PROSTATE Sister Neoplasm HIPS Sister Heart murmur Neoplasm BREAST Grandmother Heart disease Stroke Social History (Updated 03/23/20 @ 16:10 by Nuha Haddad NP) Smoking/Tobacco Use Status: Never Smoking risk assessment performed?: Yes Drug use: Rarely Substance use type: marijuana Do you feel safe at home: Yes Do you feel safe in your relationship?: Yes Additional Social history: lives alone at home off [facility] in [place] 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 with 3 adult children. only has contact with one son. Meds Allergies and Home Medications Allergies Allergy/AdvReac Type Severity Reaction Status Date / Time oxycodone Allergy Severe off the Unverified 06/29/20 13:26 wall Penicillins Allergy Severe Unverified 06/29/20 13:26 Sulfa (Sulfonamide Allergy Unknown Unverified 06/29/20 13:26 Antibiotics) Home Medications Medication Instructions Recorded Confirmed Type acetaminophen 325 mg capsule 650 mg PO .Q6H PRN 03/01/20 04/06/20 History (Tylenol) ascorbic acid (vitamin C) 500 mg 500 mg PO BID 03/01/20 04/06/20 History tablet aspirin 81 mg tablet,delayed 81 mg PO DAILY 03/01/20 04/06/20 History release (Golden Low Dose Aspirin) clopidogrel 75 mg tablet (Plavix) 75 mg PO DAILY 03/01/20 04/06/20 History cyanocobalamin (vitamin B-12) 500 500 mcg PO DAILY 03/01/20 04/06/20 History mcg tablet (Vitamin B-12) ferrous sulfate 325 mg (65 mg 325 mg PO BID 03/01/20 04/06/20 History iron) tablet folic acid 1 mg tablet 1 mg PO DAILY 03/01/20 04/06/20 History levetiracetam 500 mg tablet 500 mg PO BID 03/01/20 04/06/20 History (Keppra) losartan 50 mg tablet 50 mg PO DAILY 03/01/20 04/06/20 History metoprolol succinate 100 mg 125 mg PO DAILY 03/01/20 04/06/20 History tablet,extended release 24 hr rosuvastatin 20 mg tablet 20 mg PO DAILY 03/01/20 04/06/20 History thiamine HCl (vitamin B1) 100 mg 100 mg PO DAILY 03/01/20 04/06/20 History tablet metoprolol succinate 100 mg 100 mg PO DAILY 03/13/20 04/06/20 History capsule sprinkle, ext. release 24 hr gabapentin 300 mg capsule 300 mg PO QHS #90 caps 05/21/21 Rx losartan 25 mg tablet 25 mg PO DAILY #90 tabs 05/21/21 Rx Exam Narrative Exam Narrative: GEN: Lethargic and snoring. withdraws to noxious stimuli, but does not follow commands. HEENT: Head atraumatic except for 2x4cm hematoma left forehead. Conjunctiva clear, no icterus. PEERL. no rhinorrhea. MM somewhat dry with dry crusted blood, tongue wound noted. Neck is supple with no masses or lymphadenopathy, trachea midline LUNGS: CTAB with normal effort CV: RRR with no murmurs, gallops, or rubs. ABD: +BS, soft, no masses. no grimacing with deep palpation. EXT: no cyanosis, clubbing, or edema MSK: No joint redness or swelling NEURO: Face symmetric, PERRL. He is moving all 4 extremities, normal tone. No current tremor or abnormal movement SKIN: No rashes or open wounds. Results Imaging Chest x-ray: report reviewed (Lungs: Unremarkable. No consolidation. Pleural spaces: Unremarkable. No pleural effusion. No pneumothorax. Heart/Mediastinum: Unremarkable. No cardiomegaly. Bones/joints: Unremarkable.) Imaging Studies: CT head and cervical spine w/o: Diffuse atrophy and chronic ischemic changes with no evidence of acute transcortical infarction, recent hemorrhage or hydrocephalus. No acute intracranial process is detected. Labs 06/10/23 21:15 06/10/23 21:15 Labs: Laboratory Results - last 24 hr 06/10/23 06/10/23 06/10/23 21:15 21:15 21:15 WBC 7.93 RBC 4.15 L Hgb 12.8 L Hct 39.2 L MCV 95 MCH 30.8 MCHC 32.7 RDW 12.7 Plt Count 266 MPV 8.1 Immature Gran % 0.9 Neutrophils % 36.0 Lymphocytes % 48.3 Monocytes % 12.6 Eosinophils % 1.6 Basophils % 0.6 Nucleated RBC % 0.0 Absolute Neutrophils 2.85 Absolute Lymphocytes 3.83 H Absolute Monocytes 1.00 H Absolute Eosinophils 0.13 Absolute Basophils 0.05 PT INR APTT Sodium 135 L Potassium 3.3 L Chloride 97 L Carbon Dioxide 14.6 L Anion Gap 23.4 H BUN 14 Creatinine 1.6 H Est GFR (CKD-EPI 2020) 46.35 Glucose 210 H Calcium 8.7 Magnesium 1.9 Total Bilirubin 0.3 AST 19 ALT 15 L Alkaline Phosphatase 87 Troponin I < 50 Total Protein 7.0 Albumin 3.4 Urine Color Urine Clarity Urine pH Ur Specific [place] Urine Protein Urine Ketones Urine Blood Urine Nitrite Urine Bilirubin Urine Urobilinogen Ur Leukocyte Esterase Urine RBC Urine WBC Ur Epithelial Cells Urine Crystals Urine Bacteria Urine Mucus Ur Culture Indicated? Urine Glucose Ethyl Alcohol < 3.0 06/10/23 06/10/23 21:15 22:07 WBC RBC Hgb Hct MCV MCH MCHC RDW Plt Count MPV Immature Gran % Neutrophils % Lymphocytes % Monocytes % Eosinophils % Basophils % Nucleated RBC % Absolute Neutrophils Absolute Lymphocytes Absolute Monocytes Absolute Eosinophils Absolute Basophils PT 10.0 INR 1.0 APTT 24.5 Sodium Potassium Chloride Carbon Dioxide Anion Gap BUN Creatinine Est GFR (CKD-EPI 2020) Glucose Calcium Magnesium Total Bilirubin AST ALT Alkaline Phosphatase Troponin I Total Protein Albumin Urine Color Yellow Urine Clarity Clear Urine pH 5.0 Ur Specific [place] 1.015 Urine Protein Negative Urine Ketones Negative Urine Blood Trace-intact H Urine Nitrite Negative Urine Bilirubin Negative Urine Urobilinogen 0.2 Ur Leukocyte Esterase Negative Urine RBC 0-2 Urine WBC 0-2 Ur Epithelial Cells Rare Urine Crystals Negative Urine Bacteria Rare Urine Mucus Negative Ur Culture Indicated? No Urine Glucose Negative Ethyl Alcohol Last Vital Signs Temp 36.7 C 06/10/23 21:23 Pulse 109 H 06/10/23 22:31 Resp 19 06/10/23 22:31 BP 143/84 H 06/10/23 22:31 Pulse Ox 98 06/10/23 22:31 Time Spent Time spent with Patient: 55-74 minutes Time was spent: preparing to see the patient(eg.review tests), ordering medications,tests, procedures, referring, communicating with other health healthcare receptionist and indepentently interpreting results
[2023-06-11] VITALS (20 sets, daily range): BP systolic 121–177; BP diastolic 54–96; PULSE 43–123; RESP 12–33; TEMP 36.5–36.7; O2SAT 94–98
[2023-06-11 00:44] LABS: Troponin I 72 ng/L (<or=60)
--- NOTE | 2023-06-11 01:00 | RT.EKG_ITS ---
APPROVED REPORT Exam: Resting ECG Reason for Exam: elevated troponin Patient Location: I HR:98 bpm ECG Measurements Heart Rate 98 AXIS OK 191 P 51 QRSd 109 QRS 17 QT 376 T -1 QTc 481 Conclusion Sinus rhythm...normal P axis, V-rate 50- 99 Ventricular premature complex...SV complex w/ short R-R interval Borderline prolonged QT interval...QTc >475mS
[2023-06-11] MEDS: POTASSIUM CHLORIDE 10 MEQ/100 ML BAG 100 MEQ IVPB ×2 (02:32→03:39)
--- NOTE | 2023-06-11 07:16 | INITIAL_ITS ---
Date of service: 06/11/23 Time of Service: 07:16 Care Management Initial Assmt Initial Assessment REASON FOR HOSPITALIZATION:: Seizure PREVIOUS FUNCTIONAL STATUS/SOCIAL/FAMILY SUPPORTS:: Jesús resides alone in [place], [place]. He is , and has three adult children, and grandchildren, though he is only in contact with one of his sons. He has many friends and is active in his orthodoxy. CURRENT FUNCTIONAL STATUS:: Jesús was moved out to the M/S floor. Per Neuro consult, Jesús did not engage with the provider. Jesús did engage with CM though was tired, and required reminders to keep his arm straight as his IV pump was beeping. When asked if he would agree to follow up appointment at [facility] he stated no. This will be revisited. Per chart review Jesús has not been to the MD in three years, Henrietta CCC at reported a Hospital discharge appointment and re-establish appointment could be offered and she notified scheduling to anticipate the request. Jesús was friendly in interaction though struggled to stay alert. ADVANCE DIRECTIVES:: None on file; document to be offered. Has patient been provided with info about the portal/API?: Yes Did the patient sign up for the portal?: No CODE STATUS:: Full Code INSURANCE COVERAGE / FINANCIAL ISSUES:: Medicare A&B CURRENT HOME/COMMUNITY SERVICES/EQUIPMENT:: None, currently PRIMARY CARE PHYSICIAN:: Tomer Yang POTENTIAL DISCHARGE NEEDS:: Follow up appointments, neurology consult PATIENT/FAMILY EDUCATION NEEDS:: Review discharge instructions, discuss Ask Me Three. ANTICIPATED BARRIERS TO DISCHARGE:: None identified. TRANSPORTATION:: Via private vehicle with a friend PLAN:: Jesús will return home when ready per MD. He will be offered follow up with his PCP and encouraged to follow his plan of care as prescribed. CM continues to follow. PFSH All Active Problems (Updated 06/10/23 @ 22:48 by Landen Roper) Renal insufficiency (Chronic) Seizure (Acute) Altered mental status (Acute) Post-ictal state (Acute) Restless legs syndrome (RLS) (Acute) Crushing injury of upper extremity (Acute) CAD (coronary artery disease) (Chronic) NSTEMI 01/2020 Right leg pain (Acute) Abnormal transaminases (Chronic) DVT prophylaxis (Acute) Acute on chronic anemia (Acute) Colitis (Acute) Rectal bleeding (Acute) Dizziness (Acute) Acute dehydration (Acute) Essential hypertension (Acute) Blood Pressure Check (Chronic) Hypertension (Chronic) better Medical History (Updated 06/10/23 @ 22:48 by Landen Roper) Anemia C2 cervical fracture Non-ST elevation [place] (NSTEMI) 02/06/20 Palliative care patient Family History Mother Neoplasm BREAST Father Neoplasm PROSTATE Sister Neoplasm HIPS Sister Heart murmur Neoplasm BREAST Grandmother Heart disease Stroke Social History (Updated 03/23/20 @ 16:10 by Nuha Haddad NP) Smoking/Tobacco Use Status: Never Smoking risk assessment performed?: Yes Drug use: Rarely Substance use type: marijuana Do you feel safe at home: Yes Do you feel safe in your relationship?: Yes Additional Social history: lives alone at home off [address] in [place] 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 with 3 adult children. only has contact with one son.
[2023-06-11 07:17] LABS: Troponin I 130 ng/L (<or=60)
[2023-06-11 07:28] LABS: Anion Gap 6.6 mmol/L (3-11); BUN 10 mg/dL (7-18); CO2 26.4 mmol/L (21.0-32.0); CREATININE 1.1 mg/dL (0.70-1.30); Calcium 8.6 mg/dL (8.5-10.1); Chloride 104 mmol/L (98-107); Estimated GFR 72.67 (mL/min/1.73m2); Glucose 115 mg/dL (74-106); Potassium 3.5 mmol/L (3.5-5.1); Sodium 137 mmol/L (136-145)
[2023-06-11 07:38] LABS: Lab Add On Test DONE
--- NOTE | 2023-06-11 07:45 | RT.EKG_ITS ---
APPROVED REPORT Exam: Resting ECG Reason for Exam: Elvated Troponin Patient Location: I HR:52 bpm ECG Measurements Heart Rate 52 AXIS VA 220 P 44 QRSd 109 QRS 26 QT 479 T 44 QTc 446 Conclusion Sinus rhythm...normal P axis, V-rate 50- 99 Prolonged VA interval...VA >220, V-rate 50- 90 Borderline low voltage, extremity leads...all extremity leads <0.6mV Left ventricular hypertrophy...multiple voltage criteria
[2023-06-11 07:50] LABS: Creatine Kinase 340 U/L (39-308)
[2023-06-11] MEDS: Metoprolol CR 100 MG TABCR PO (09:21)
[2023-06-11] MEDS: Aspirin E.C. 81 MG TABEC PO (09:21)
[2023-06-11] MEDS: levETIRAcetam 500 MG TAB PO ×2 (09:21→20:37)
[2023-06-11] MEDS: Potassium Chloride 20 MEQ TABCR PO (09:21)
[2023-06-11 10:52] LABS: Troponin I 111 ng/L (<or=60)
[2023-06-11] MEDS: Lactated Ringers 1,000 ML 1000 ML IV (11:21)
--- NOTE | 2023-06-11 12:44 | W.NEUROCONSU ---
Date of service: 06/11/23 Time of Service: 12:44 Assessment and Plan Assessment and plan (1) Seizure: Status: Acute Assessment and plan: Patient uncooperative for my visit today. It seems he has eschewed medical care for the last 3 years and holds some amount of disdain for medical workers. I recommended to him that he continue levetiracetam 500mg BID for seizure prevention. I also mentioned seizure precautions/safety including no driving, swimming, taking baths, climbing heights, etc. I gave him my card such that he can schedule a follow-up appointment in clinic should he desire further care. Please call with any further questions or concerns. History of Present Illness History of Present Illness Chief Complaint: seizure Narrative: Handedness: unknown. Mr. Juan Carlos Bundy is a 68 year-old with ?Wernickes, prior ETOH abuse, hypertension, prior NSTEMI, prior seizure, RLS, prior GI bleed whom we know very a little about and whom seems to have not had any medical care in the last 3 years. Today, Mr. Bundy refuses to talk with me. He keeps repeating that he is all set and that I should go away. He answers no to all my questions. This is apparently an upgrade form this morning as he has been ignoring all other staff completely. He otherwise looks quite comfortable and is eating his lunch without any issues - using both hands, not choking, etc. Mr. Bundy was admitted yesterday after a witnessed GTC at his alevism and was brought here by EMS. He was given 1500mg LEV in the ER and now maintained on 500mg BID. He has a history of GTC on 02/06/20 in the setting of febrile illness, influenza B, and hyponatremia of 115 (attributed to resp illness) complicated by NSTEMI (treated medically) and strep pneumonia vs aspiration pneumonia along with a C2 lateral mass fracture. He was treated at [facility] at that time and recommended LEV 500mg BID for seizure prevention, though seizure felt to be provoked. At neurology f/up on 04/04/20, he had already stopped taking LEV but also reported 1-2 GTC/suspected seizures in the 2-3 weeks leading up to 02/06/20. Dr. 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 Unclear if he has further ETOH use since then. Dr. Saldana rec'd that he continue LEV 500mg BID but he declined. 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 I reviewed these images personally and this is my personal interpretation. -Labs (06/10/23): W 7.93, Na 135 -> 137, Cr 1.6 -> 1.1, glucose 210, trop <50 --> 72 --> 130, CK 340 Prior Work-up: -vEEG (02/06/20-02/10/20 x89hr at [facility]): L>R arrhythmic slowing which improved with time. Intermittent sharp activity in L parasagittal head region of unclear significance. No seizure activity. 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 I reviewed these images personally and this is my personal interpretation. Review of Systems Unobtainable due to mental condition PFSH All Active Problems (Updated 06/11/23 @ 19:32 by Glenys Peña MD) Discharge planning issues (Acute) Renal insufficiency (Chronic) Seizure (Acute) Altered mental status (Acute) Post-ictal state (Acute) Restless legs syndrome (RLS) (Acute) Crushing injury of upper extremity (Acute) CAD (coronary artery disease) (Chronic) NSTEMI 01/2020 Right leg pain (Acute) Abnormal transaminases (Chronic) DVT prophylaxis (Acute) Acute on chronic anemia (Acute) Colitis (Acute) Rectal bleeding (Acute) Dizziness (Acute) Acute dehydration (Acute) Essential hypertension (Acute) Blood Pressure Check (Chronic) Hypertension (Chronic) better Medical History (Updated 06/11/23 @ 19:32 by Glenys Peña MD) Anemia C2 cervical fracture Non-ST elevation [place] (NSTEMI) 02/06/20 Palliative care patient Family History Mother Neoplasm BREAST Father Neoplasm PROSTATE Sister Neoplasm HIPS Sister Heart murmur Neoplasm BREAST Grandmother Heart disease Stroke Social History (Updated 03/23/20 @ 16:10 by Nuha Haddad NP) Smoking/Tobacco Use Status: Never Smoking risk assessment performed?: Yes Drug use: Rarely Substance use type: marijuana Do you feel safe at home: Yes Do you feel safe in your relationship?: Yes Additional Social history: lives alone at home off [address] in [place] 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 with 3 adult children. only has contact with one son. Visit Medication and Allergies Active Medications Generic Name Dose Route Start Last Admin Trade Name Freq PRN Reason Stop Dose Admin Acetaminophen 650 mg 06/11/23 01:20 Acetaminophen 325 Mg Tab PO Q6H PRN PRN Analgesia Aspirin 81 mg 06/12/23 08:30 Aspirin E.C. 81 Mg Tabec PO DAILY DANA Dimethicone/Zinc Oxide 0 gm 06/10/23 22:39 Hue Protect Cream 142 Gm Tube TP PRN PRN IV Miscellaneous Supplies 1 each 06/10/23 21:15 Iv Access IV DIRECTED [facility] IV Miscellaneous Supplies 1 each 06/10/23 22:30 Iv Access-Emergency Dept IV DIRECTED [facility] Levetiracetam 500 mg 06/11/23 08:30 06/11/23 09:21 Levetiracetam 500 Mg Tab PO 500 mg BID DANA Administration Metoprolol Succinate 100 mg 06/11/23 08:30 06/11/23 09:21 Metoprolol Cr 100 Mg Tabcr PO 100 mg DAILY DANA Administration Rosuvastatin Calcium 20 mg 06/11/23 20:00 Rosuvastatin 20 Mg Tab PO QPM DANA Sodium Chloride 0 ml 06/10/23 21:03 Normal Saline Flush 10 Ml Syr IVP PRN PRN Sodium Chloride 0 ml 06/10/23 22:28 Normal Saline Flush 10 Ml Syr IVP PRN PRN Allergies oxycodone Allergy (Severe, Unverified 06/29/20 13:26) off the wall Penicillins Allergy (Severe, Unverified 06/29/20 13:26) Sulfa (Sulfonamide Antibiotics) Allergy (Unknown, Unverified 06/29/20 13:26) Exam Narrative Exam Narrative: Mr. Bundy refused an examination today. Results Last Vital Signs Temp 98.1 F 06/11/23 07:20 Pulse 45 L 06/11/23 11:12 Resp 14 06/11/23 11:12 BP 158/57 H 06/11/23 11:12 Pulse Ox 97 06/11/23 07:17 Labs 06/10/23 21:15 06/11/23 06:35 Labs: Laboratory Results - last 24 hr 06/10/23 06/10/23 06/10/23 21:15 21:15 21:15 WBC 7.93 RBC 4.15 L Hgb 12.8 L Hct 39.2 L MCV 95 MCH 30.8 MCHC 32.7 RDW 12.7 Plt Count 266 MPV 8.1 Immature Gran % 0.9 Neutrophils % 36.0 Lymphocytes % 48.3 Monocytes % 12.6 Eosinophils % 1.6 Basophils % 0.6 Nucleated RBC % 0.0 Absolute Neutrophils 2.85 Absolute Lymphocytes 3.83 H Absolute Monocytes 1.00 H Absolute Eosinophils 0.13 Absolute Basophils 0.05 PT INR APTT Sodium 135 L Potassium 3.3 L Chloride 97 L Carbon Dioxide 14.6 L Anion Gap 23.4 H BUN 14 Creatinine 1.6 H Est GFR (CKD-EPI 2020) 46.35 Glucose 210 H Calcium 8.7 Magnesium 1.9 Total Bilirubin 0.3 AST 19 ALT 15 L Alkaline Phosphatase 87 Creatine Kinase Troponin I < 50 Total Protein 7.0 Albumin 3.4 Urine Color Urine Clarity Urine pH Ur Specific [place] Urine Protein Urine Ketones Urine Blood Urine Nitrite Urine Bilirubin Urine Urobilinogen Ur Leukocyte Esterase Urine RBC Urine WBC Ur Epithelial Cells Urine Crystals Urine Bacteria Urine Mucus Ur Culture Indicated? Urine Glucose Urine Opiates Screen Urine Methadone Screen Ur Barbiturates Screen Ur Tricyclics Screen Ur Amphetamines Screen U Benzodiazepines Scrn Urine Cocaine Screen Ur THC Screen Ethyl Alcohol < 3.0 Add-On Test Request 06/10/23 06/10/23 06/10/23 21:15 22:07 22:07 WBC RBC Hgb Hct MCV MCH MCHC RDW Plt Count MPV Immature Gran % Neutrophils % Lymphocytes % Monocytes % Eosinophils % Basophils % Nucleated RBC % Absolute Neutrophils Absolute Lymphocytes Absolute Monocytes Absolute Eosinophils Absolute Basophils PT 10.0 INR 1.0 APTT 24.5 Sodium Potassium Chloride Carbon Dioxide Anion Gap BUN Creatinine Est GFR (CKD-EPI 2020) Glucose Calcium Magnesium Total Bilirubin AST ALT Alkaline Phosphatase Creatine Kinase Troponin I Total Protein Albumin Urine Color Yellow Urine Clarity Clear Urine pH 5.0 Ur Specific [place] 1.015 Urine Protein Negative Urine Ketones Negative Urine Blood Trace-intact H Urine Nitrite Negative Urine Bilirubin Negative Urine Urobilinogen 0.2 Ur Leukocyte Esterase Negative Urine RBC 0-2 Urine WBC 0-2 Ur Epithelial Cells Rare Urine Crystals Negative Urine Bacteria Rare Urine Mucus Negative Ur Culture Indicated? No Urine Glucose Negative Urine Opiates Screen Negative Urine Methadone Screen Negative Ur Barbiturates Screen Negative Ur Tricyclics Screen Negative Ur Amphetamines Screen Negative U Benzodiazepines Scrn Positive A Urine Cocaine Screen Negative Ur THC Screen Negative Ethyl Alcohol Add-On Test Request 06/11/23 06/11/23 06/11/23 00:13 06:35 06:35 WBC RBC Hgb Hct MCV MCH MCHC RDW Plt Count MPV Immature Gran % Neutrophils % Lymphocytes % Monocytes % Eosinophils % Basophils % Nucleated RBC % Absolute Neutrophils Absolute Lymphocytes Absolute Monocytes Absolute Eosinophils Absolute Basophils PT INR APTT Sodium 137 Potassium 3.5 Chloride 104 Carbon Dioxide 26.4 Anion Gap 6.6 BUN 10 Creatinine 1.1 Est GFR (CKD-EPI 2020) 72.67 Glucose 115 H Calcium 8.6 Magnesium Total Bilirubin AST ALT Alkaline Phosphatase Creatine Kinase Troponin I 72 H* 130 H* Total Protein Albumin Urine Color Urine Clarity Urine pH Ur Specific [place] Urine Protein Urine Ketones Urine Blood Urine Nitrite Urine Bilirubin Urine Urobilinogen Ur Leukocyte Esterase Urine RBC Urine WBC Ur Epithelial Cells Urine Crystals Urine Bacteria Urine Mucus Ur Culture Indicated? Urine Glucose Urine Opiates Screen Urine Methadone Screen Ur Barbiturates Screen Ur Tricyclics Screen Ur Amphetamines Screen U Benzodiazepines Scrn Urine Cocaine Screen Ur THC Screen Ethyl Alcohol Add-On Test Request 06/11/23 06/11/23 06/11/23 06:35 06:35 10:05 WBC RBC Hgb Hct MCV MCH MCHC RDW Plt Count MPV Immature Gran % Neutrophils % Lymphocytes % Monocytes % Eosinophils % Basophils % Nucleated RBC % Absolute Neutrophils Absolute Lymphocytes Absolute Monocytes Absolute Eosinophils Absolute Basophils PT INR APTT Sodium Potassium Chloride Carbon Dioxide Anion Gap BUN Creatinine Est GFR (CKD-EPI 2020) Glucose Calcium Magnesium Total Bilirubin AST ALT Alkaline Phosphatase Creatine Kinase 340 H Troponin I 111 H* Total Protein Albumin Urine Color Urine Clarity Urine pH Ur Specific [place] Urine Protein Urine Ketones Urine Blood Urine Nitrite Urine Bilirubin Urine Urobilinogen Ur Leukocyte Esterase Urine RBC Urine WBC Ur Epithelial Cells Urine Crystals Urine Bacteria Urine Mucus Ur Culture Indicated? Urine Glucose Urine Opiates Screen Urine Methadone Screen Ur Barbiturates Screen Ur Tricyclics Screen Ur Amphetamines Screen U Benzodiazepines Scrn Urine Cocaine Screen Ur THC Screen Ethyl Alcohol Add-On Test Request DONE
--- NOTE | 2023-06-11 13:24 | PT.INIE ---
Date of service: 06/11/23 Time of Service: 12:58 PT Notes Visit Reasons: Seizure,Altered Mental Status Physical Therapy Inpatient Initial Evaluation Date: 06/11/2023 Referring Doctor: Glenys Peña MD PT Orders: PT CONSULT: Limited ability Precautions: Fall. Standard. Activity as tolerated. Seizure precautions in pace. Patient Profile/Admitting Diagnosis: Juan Carlos is a 68-year-old male admitted for management seizure, postictal state, CAD, essential hypertension, anemia, and renal insufficiency. PMHX: All Active Problems?(Updated 06/10/23 @ 22:48 by Landen Roper) Renal insufficiency (Chronic) Seizure (Acute) Altered mental status (Acute) Post-ictal state (Acute) Restless legs syndrome (RLS) (Acute) Crushing injury of upper extremity (Acute) CAD (coronary artery disease) (Chronic) NSTEMI? 01/2020Right leg pain (Acute) Abnormal transaminases (Chronic) DVT prophylaxis (Acute) Acute on chronic anemia (Acute) Colitis (Acute) Rectal bleeding (Acute) Dizziness (Acute) Acute dehydration (Acute) Essential hypertension (Acute) Blood Pressure Check (Chronic) Hypertension (Chronic) better Medical History?(Updated 06/10/23 @ 22:48 by Landen Roper) Anemia C2 cervical fracture Non-ST elevation [place] (NSTEMI) 02/06/20 Palliative care patient Social History/Home Situation: Lives in an apartment building with one step to enter his apartment. Ambulatory with no assistive device prior to admission. Another resident who lives upstairs, helps him out with dish washing. Still drives, does his own grocery shopping, and manages his own laundry. Equipment Owned/DME: None Subjective: Had a hard time responding to questions as he stated that he left his hearing aids at home. Per Nurse Waggoner, hearing aids are here and patient refused to put them earlier. Repeatedly verbalized wanting to go to bed from the chair, he was however agreeable to walking to the door and back to show this provider how he does before resting in bed. Denied headache, chest pain, and lightheadedness throughout session. Objective: General Observation: Seated on recliner, FERMIN Rios assisting patient. Mental Status: Alert, responses were not entirely accurate as he had a hard time hearing this provider during the interview. Needed instructions to be repeated because of hearing impairment and of residual confusion. Pain: Denies Vital Signs: Closley monitored by nursing staff ROM: Right Upper Extremity: Shoulder Flexion lacks the last 25% of AROM. Shoulder abduction acks the last 25% of AROM. Elbow flexion WFL. Wrist flexion WFL. Functional opening and closing of hand WFL. Left Upper Extremity: Shoulder Flexion lacks the last 25% of AROM. Shoulder abduction acks the last 25% of AROM. Elbow flexion WFL. Wrist flexion WFL. Functional opening and closing of hand WFL. Right Lower Extremity: Hip flexion lacks the last 25% of AROM. Hip abduction lacks the last 25% of AROM. Knee flexion WFL. Ankle dorsiflexion to neutral only. Ankle plantarflexion WFL. Left Lower Extremity: Hip flexion lacks the last 25% of AROM. Hip abduction lacks the last 25% of AROM. Knee flexion WFL. Ankle dorsiflexion to neutral only. Ankle plantarflexion WFL. Strength: Right Upper Extremity: Shoulder flexors 3-/5. Shoulder abductors 3-/5. Elbow flexors 4-/5. Elbow extensors 4-/5. Last Picker strong. Left Upper Extremity: Shoulder flexors 3-/5. Shoulder abductors 3-/5. Elbow flexors 4-/5. Elbow extensors 4-/5. Last Picker strong. Right Lower Extremity: Hip flexors 3-/5. Hip abductors 3-/5. Knee flexors 4-/5. Knee extensors 4-/5. Ankle dorsiflexors 3-/5. Ankle plantarflexors 4-/5. Left Lower Extremity: Hip flexors 3-/5. Hip abductors 3-/5. Knee flexors 4-/5. Knee extensors 4-/5. Ankle dorsiflexors 3-/5. Ankle plantarflexors 4-/5. Bed Mobility/Transfers: Sit to supine stand by assist Sit to stand stand by assist Stand to sit stand by assist with FWW Reclining chair to bed stand by assist with FWW Gait: Instructed patient with level surface ambulation of 30 feet requiring stand by assist. Petra decreased. Step height decreased. Step length decreased. Complained of increased fatigue. Balance: Static Sitting: Normal Dynamic Sitting: Normal Static Standing: Fair Dynamic Standing: Fair Special Tests: Mobility Limitations Standardized Measure [facility] 6 clicks Basic Mobility Inpatient Short Form: Raw Score: 22 CMS Score: 21% deficit 4-Stage Balance Test: Unable to maintain all four static standing test positions for 10 seconds signifying a risk for falls and needing AD for mobility ADLs at this time Informed Consent/Education: Patient was instructed in purpose of PT consult and plan of care. Agreeable to proceed with established PT POC to achieve personal goals. Assessment: Patient demonstrates generalized weakness and residual confusion from admitting diagnoses. Patient presents with clinical signs and symptoms consistent with current/admitting diagnoses that have resulted to mobility limitations, gait instability, generalized weakness, and overall ADL decline as demonstrated by the following impairment level findings: 1. Decreased strength to B UE/LE major muscle groups 2. Impaired standing balance 3. Impaired activity tolerance 4. Limitation of joint range of motion in B shoulders, hips and ankle 5. Fatigue Impairments are contributing to the following functional limitations: 1. Decline in bed mobility skills 2. Decline in transfer skills 3. Difficulty with ambulation without assistive device 4. Increased completion time for mobility ADL performance 5. Increased risk for falls 6. Difficulty with managing steps alone safely Patient is assessed as a 60335 moderate complexity based on the following: History: 68-year-old male with past medical history as indicated above Examination: Demonstrable impairment in strength, balance, and mobility level with underlying impairments and functional limitations as exhibited above as well as deficit score of 21% utilizing the [facility] Mobility Inpatient Short Form Presentation: Evolving Decision Makin moderate complexity Goals: Goals X1 week 1. Supine-Sit independent 2. Sit-Supine independent 3. Sit-Stand independent 4. Stand-Sit independent with no AD 5. Bed-Chair independent with no AD 6. Chair-Bed independent with no AD 7. Independent gait on level surface with use of no AD for at least 300 feet without report of pain nor dyspnea 8. Independent stair negotiation while holding onto B rails for at least 3 steps without report of pain nor dyspnea 9. Independent with home exercise program 10. Good static and dynamic standing balance/tolerance Plan of Care/Treatment Plan: 1-2x/day, 7 days/week x 1 week. Plan of care has been reviewed with the CLARIFYING PLANT OPERATOR providing the service under Physical Therapy direction. Initiate Physical Therapy intervention for pain management as needed, strengthening, bed mobility, transfers, gait, stairs, balance training, and use of assistive device. DISCHARGE RECOMMENDATIONS: [] Home with no services [] [X] Home with services. Patient will benefit from home health PT services in order to progress mobility level using least restrictive assistive ambulatory device, assess home safety, identify additional equipment needs, and establish a functional maintenance program that will increase ability of patient to remain at home. [] Home with outpatient PT [] [] SNF for continued rehabilitation [] [] [facility] Care [] [] SNF versus LTC based on ability to participate and progress [] TREATMENT CODE/TIME: 77720 x 20 minutes beginning at 12:58 PM. Thank you for the opportunity to participate in the care of this patient. Elvie Graves PT, DPT, CLT [facility] [place], [place]
--- NOTE | 2023-06-11 15:11 | PHA.REVIEW2 ---
Pharmacy Admission Review - Admission Clinical Review (Last Updated 02/27/22 @ 14:50 by Sheridan Parsons RN) Seizure (Acute) Altered mental status (Acute) Post-ictal state (Acute) DVT prophylaxis (Acute) Essential hypertension (Acute) oxycodone Allergy (Severe, Unverified 06/29/20 13:26) off the wall Penicillins Allergy (Severe, Unverified 06/29/20 13:26) Sulfa (Sulfonamide Antibiotics) Allergy (Unknown, Unverified 06/29/20 13:26) Resuscitation Status Full Code Height 5 ft 5 in Weight 52.2 kg - Renal Dosing Renal Dosing: BUN 10 mg/dL (7-18) 06/11/23 06:35 Creatinine 1.1 mg/dL (0.70-1.30) 06/11/23 06:35 Medications needing adjustments: Reviewed List of meds needing interventions: eCrCl 46 ml/min, all orders okay - Anticoagulation Anticoagulation: Hgb 12.8 g/dL (13.5-17.5) L 06/10/23 21:15 Hct 39.2 % (40.0-50.0) L 06/10/23 21:15 Plt Count 266 10^3/uL (130-400) 06/10/23 21:15 INR 1.0 (0.9-1.1) 06/10/23 21:15 Creatinine 1.1 mg/dL (0.70-1.30) 06/11/23 06:35 DVT Prophylaxis: N/A Therapeutic Anticoagulation: N/A (non-chem only given hx of GI bleed) - Opiate Usage Evaluate Pain Scale/Pains Meds: N/A - Relevant Labs Sodium 137 mmol/L (136-145) 06/11/23 06:35 Potassium 3.5 mmol/L (3.5-5.1) 06/11/23 06:35 Chloride 104 mmol/L (98-107) 06/11/23 06:35 Magnesium 1.9 mg/dL (1.8-2.4) 06/10/23 21:15 Electrolytes, C-Reactive P, ESR: Reviewed (potassium replaced this AM) - DM Control DM Control: Glucose 115 mg/dL (74-106) H 06/11/23 06:35 DM Control: N/A - Cardiac Review Cardiac Review: Troponin I 111 ng/L (<or=60) H* 06/11/23 10:05 BP, HR, EF%: Reviewed List meds needing interventions: patient was previously taking metoprolol but appears he hasn't filled this in several years, has filled HCTZ and losartan within the past 3 months however - Qtc Review QTc: Reviewed If Elevated, List meds needing intervention: 461 on admission - IV to PO Switch IV Medications: Reviewed - Home Meds Home Med List reviewed: Reviewed Relevent Home Meds Not ordered & why?: sent MedRec request to -- maybe they will be able to find out and confirm med list prior to when pt stopped seeing a PCP ~2019, was admitted at [facility] at some point so they might have records and he use to use [facility] in [place] who would also have records; only able to confirm a recent fills of HCTZ and losartan in january Medication adherence barriers identified?: Seems to have stopped seeing a PCP and filling maintenance medications for CAD and epilepsy for about 3 years now; only able to confirm recent fills of HCTZ and losartan this past january and based on pills left in bottle and fill date he doesn't take these medications every day; sounds like he has a 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
--- NOTE | 2023-06-11 15:30 | NUR.NOTE ---
Nursing Note: pt transferred from ICU to med surg room 226. no difficulties with transfer.
--- NOTE | 2023-06-11 17:48 | CHAPLAIN ---
Juan Carlos was having his diner when I visited. He's from [place] and told me he used to attend the [employer] and now goes to a [employer]. His ludlow machine operator has been in to visit.
--- NOTE | 2023-06-11 18:20 | PGE_ITS ---
Date of Service Date of service: 06/11/23 Time of Service: 09:15 Assessment and Plan Assessment and plan (1) Seizure: Status: Acute Assessment and plan: Continue Keppra. Neurology was consulted, but the patient was not interested in the consultation. (2) Post-ictal state: Status: Acute Assessment and plan: Monitor mental status as the patient is recovering from his seizure. (3) CAD (coronary artery disease): Status: Chronic Assessment and plan: Continue asa, statin. Discussed case with Dr Matta: felt that the mild troponin elevation is not related to an ACS and is due to seizure. (4) Essential hypertension: Status: Acute Assessment and plan: Continue metoprolol. (5) Anemia: Assessment and plan: F/u as outpatient (6) Renal insufficiency: Status: Chronic Assessment and plan: With Luis A on presention. This has resolved. Encourage PO hydration (7) DVT prophylaxis: Status: Acute Assessment and plan: SCDs for now given h/o GI bleeding (8) Discharge planning issues: Status: Acute Assessment and plan: Full code Anticipate discharge home tomorrow. Subjective Subjective Interval history since last seen: Mr Bundy is somnolent at the time of the examination. He does wake up and answer some questions. He denies a headache, dizziness, CP, SOB. He falls asleep before answering re nausea. He knows he is in the hospital. He cannot tell me the date. No seizure events since arrival to the ICU. Exam Narrative Exam Narrative: General: Middle-aged male, somnolent, does wake up, A&Ox2 HEENT: EOMI, MMM Heart: RRR Lungs: Diminished breath sounds B Abdomen: soft, nontender, nondistended Extremities: no edema BLEs Objective Last Vital Signs Temp 36.6 C 06/11/23 15:27 Pulse 53 L 06/11/23 15:27 Resp 20 06/11/23 15:27 BP 160/81 H 06/11/23 15:27 Pulse Ox 98 06/11/23 15:27 Laboratory Results - last 24 hr 06/10/23 06/10/23 06/10/23 21:15 21:15 21:15 WBC 7.93 RBC 4.15 L Hgb 12.8 L Hct 39.2 L MCV 95 MCH 30.8 MCHC 32.7 RDW 12.7 Plt Count 266 MPV 8.1 Immature Gran % 0.9 Neutrophils % 36.0 Lymphocytes % 48.3 Monocytes % 12.6 Eosinophils % 1.6 Basophils % 0.6 Nucleated RBC % 0.0 Absolute Neutrophils 2.85 Absolute Lymphocytes 3.83 H Absolute Monocytes 1.00 H Absolute Eosinophils 0.13 Absolute Basophils 0.05 PT INR APTT Sodium 135 L Potassium 3.3 L Chloride 97 L Carbon Dioxide 14.6 L Anion Gap 23.4 H BUN 14 Creatinine 1.6 H Est GFR (CKD-EPI 2020) 46.35 Glucose 210 H Calcium 8.7 Magnesium 1.9 Total Bilirubin 0.3 AST 19 ALT 15 L Alkaline Phosphatase 87 Creatine Kinase Troponin I < 50 Total Protein 7.0 Albumin 3.4 Urine Color Urine Clarity Urine pH Ur Specific [place] Urine Protein Urine Ketones Urine Blood Urine Nitrite Urine Bilirubin Urine Urobilinogen Ur Leukocyte Esterase Urine RBC Urine WBC Ur Epithelial Cells Urine Crystals Urine Bacteria Urine Mucus Ur Culture Indicated? Urine Glucose Urine Opiates Screen Urine Methadone Screen Ur Barbiturates Screen Ur Tricyclics Screen Ur Amphetamines Screen U Benzodiazepines Scrn Urine Cocaine Screen Ur THC Screen Ethyl Alcohol < 3.0 Add-On Test Request 06/10/23 06/10/23 06/10/23 21:15 22:07 22:07 WBC RBC Hgb Hct MCV MCH MCHC RDW Plt Count MPV Immature Gran % Neutrophils % Lymphocytes % Monocytes % Eosinophils % Basophils % Nucleated RBC % Absolute Neutrophils Absolute Lymphocytes Absolute Monocytes Absolute Eosinophils Absolute Basophils PT 10.0 INR 1.0 APTT 24.5 Sodium Potassium Chloride Carbon Dioxide Anion Gap BUN Creatinine Est GFR (CKD-EPI 2020) Glucose Calcium Magnesium Total Bilirubin AST ALT Alkaline Phosphatase Creatine Kinase Troponin I Total Protein Albumin Urine Color Yellow Urine Clarity Clear Urine pH 5.0 Ur Specific [place] 1.015 Urine Protein Negative Urine Ketones Negative Urine Blood Trace-intact H Urine Nitrite Negative Urine Bilirubin Negative Urine Urobilinogen 0.2 Ur Leukocyte Esterase Negative Urine RBC 0-2 Urine WBC 0-2 Ur Epithelial Cells Rare Urine Crystals Negative Urine Bacteria Rare Urine Mucus Negative Ur Culture Indicated? No Urine Glucose Negative Urine Opiates Screen Negative Urine Methadone Screen Negative Ur Barbiturates Screen Negative Ur Tricyclics Screen Negative Ur Amphetamines Screen Negative U Benzodiazepines Scrn Positive A Urine Cocaine Screen Negative Ur THC Screen Negative Ethyl Alcohol Add-On Test Request 06/11/23 06/11/23 06/11/23 00:13 06:35 06:35 WBC RBC Hgb Hct MCV MCH MCHC RDW Plt Count MPV Immature Gran % Neutrophils % Lymphocytes % Monocytes % Eosinophils % Basophils % Nucleated RBC % Absolute Neutrophils Absolute Lymphocytes Absolute Monocytes Absolute Eosinophils Absolute Basophils PT INR APTT Sodium 137 Potassium 3.5 Chloride 104 Carbon Dioxide 26.4 Anion Gap 6.6 BUN 10 Creatinine 1.1 Est GFR (CKD-EPI 2020) 72.67 Glucose 115 H Calcium 8.6 Magnesium Total Bilirubin AST ALT Alkaline Phosphatase Creatine Kinase Troponin I 72 H* 130 H* Total Protein Albumin Urine Color Urine Clarity Urine pH Ur Specific [place] Urine Protein Urine Ketones Urine Blood Urine Nitrite Urine Bilirubin Urine Urobilinogen Ur Leukocyte Esterase Urine RBC Urine WBC Ur Epithelial Cells Urine Crystals Urine Bacteria Urine Mucus Ur Culture Indicated? Urine Glucose Urine Opiates Screen Urine Methadone Screen Ur Barbiturates Screen Ur Tricyclics Screen Ur Amphetamines Screen U Benzodiazepines Scrn Urine Cocaine Screen Ur THC Screen Ethyl Alcohol Add-On Test Request 06/11/23 06/11/23 06/11/23 06:35 06:35 10:05 WBC RBC Hgb Hct MCV MCH MCHC RDW Plt Count MPV Immature Gran % Neutrophils % Lymphocytes % Monocytes % Eosinophils % Basophils % Nucleated RBC % Absolute Neutrophils Absolute Lymphocytes Absolute Monocytes Absolute Eosinophils Absolute Basophils PT INR APTT Sodium Potassium Chloride Carbon Dioxide Anion Gap BUN Creatinine Est GFR (CKD-EPI 2020) Glucose Calcium Magnesium Total Bilirubin AST ALT Alkaline Phosphatase Creatine Kinase 340 H Troponin I 111 H* Total Protein Albumin Urine Color Urine Clarity Urine pH Ur Specific [place] Urine Protein Urine Ketones Urine Blood Urine Nitrite Urine Bilirubin Urine Urobilinogen Ur Leukocyte Esterase Urine RBC Urine WBC Ur Epithelial Cells Urine Crystals Urine Bacteria Urine Mucus Ur Culture Indicated? Urine Glucose Urine Opiates Screen Urine Methadone Screen Ur Barbiturates Screen Ur Tricyclics Screen Ur Amphetamines Screen U Benzodiazepines Scrn Urine Cocaine Screen Ur THC Screen Ethyl Alcohol Add-On Test Request DONE Time Spent with Patient Time Spent with Patient: 25-34 minutes Time was spent: preparing to see the patient(eg.review tests), obtaining and/or reviewing separately otained hiistory, ordering medications,tests, procedures, referring, communicating with other health acute care registered nurse, indepentently interpreting results, counseling the patient and care coordination
[2023-06-11] MEDS: Rosuvastatin 20 MG TAB PO (20:37)
[2023-06-12 03:35] VITALS: BP 172/75; PULSE 55; RESP 18; TEMP 36.2; O2SAT 97
[2023-06-12 04:23] VITALS: BP 170/70
[2023-06-12 06:20] VITALS: BP 142/69; PULSE 58; RESP 18; TEMP 35.8; O2SAT 97
--- NOTE | 2023-06-12 06:46 | NUR.NOTE ---
Med/surg charge nurse called to inform that patient's heart rate is 38 to the 50's and the 0830 100mg needs to be looked at before it is given to the patient.
[2023-06-12 07:15] LABS: Anion Gap 9.5 mmol/L (3-11); BUN 7 mg/dL (7-18); CO2 25.5 mmol/L (21.0-32.0); CREATININE 1.1 mg/dL (0.70-1.30); Calcium 8.9 mg/dL (8.5-10.1); Calculated LDL 149 mg/dL (<100); Chloride 106 mmol/L (98-107); Cholesterol 208 mg/dL (<200); Estimated GFR 72.67 (mL/min/1.73m2); Glucose 84 mg/dL (74-106); HDL Cholesterol 40 mg/dL (40-60); Magnesium 1.7 mg/dL (1.8-2.4); Potassium 4.1 mmol/L (3.5-5.1); Sodium 141 mmol/L (136-145); Triglyceride 96 mg/dL (<150)
[2023-06-12 07:23] LABS: Hemoglobin A1C 5.3 % (<5.7)
[2023-06-12 07:28] VITALS: PULSE 46
[2023-06-12] MEDS: Aspirin E.C. 81 MG TABEC PO (08:29)
[2023-06-12] MEDS: levETIRAcetam 500 MG TAB PO (08:29)
[2023-06-12] MEDS: Magnesium Chloride 64 MG TABCR PO (08:29)
--- NOTE | 2023-06-12 11:15 | PTTR_ITS ---
Date of service: 06/12/23 PT Notes Visit Reasons: Seizure,Altered Mental Status Physical Therapy Inpatient Discharge Summary Date: 06/12/2023 Dates of service: 06/11/2023 through 06/12/2023 Referring Doctor:? Glenys Peña? PT Orders: PT CONSULT: Limited ability Precautions: Fall. Standard. Activity as tolerated. Seizure precautions in pace. Patient Profile/Admitting Diagnosis:Kelsey Rangel is a 68-year-old male admitted for management seizure, postictal state, CAD, essential hypertension, anemia, and renal insufficiency. PMHX: All Active Problems?(Updated 06/10/23 @ 22:48 by Landen Roper) Renal insufficiency (Chronic) Seizure (Acute) Altered mental status (Acute) Post-ictal state (Acute) Restless legs syndrome (RLS) (Acute) Crushing injury of upper extremity (Acute) CAD (coronary artery disease) (Chronic) NSTEMI? 01/2020Right leg pain (Acute) Abnormal transaminases (Chronic) DVT prophylaxis (Acute) Acute on chronic anemia (Acute) Colitis (Acute) Rectal bleeding (Acute) Dizziness (Acute) Acute dehydration (Acute) Essential hypertension (Acute) Blood Pressure Check (Chronic) Hypertension (Chronic) better Medical History?(Updated 06/10/23 @ 22:48 by Landen Roper) Anemia C2 cervical fracture Non-ST elevation [place] (NSTEMI) 02/06/20 Palliative care patient Social History/Home Situation: Lives in an apartment building with one step to enter his apartment.? Ambulatory with no assistive device prior to admission.? Another resident who lives upstairs, helps him out with dish washing.? Still drives,? does his own grocery shopping,? and manages his own laundry. Equipment Owned/DME: None Subjective: With hearing aids on, patient is able to appropriately respond to provider. Looking forward to going home this afternoon. Objective: General Observation: Seated on recliner,? FERMIN Rios assisting patient. Mental Status: Alert and oriented x 4 Pain: Denies Vital Signs: WNL ROM: Right Upper Extremity: ? Shoulder Flexion lacks the last 25% of AROM. Shoulder abduction acks the last 25% of AROM. Elbow flexion WFL. Wrist flexion WFL. Functional opening and closing of hand WFL. Left Upper Extremity:? Shoulder Flexion lacks the last 25% of AROM. Shoulder abduction acks the last 25% of AROM. Elbow flexion WFL. Wrist flexion WFL. Functional opening and closing of hand WFL. Right Lower Extremity: Hip flexion lacks the last 25% of AROM. Hip abduction lacks the last 25% of AROM. Knee flexion WFL. Ankle dorsiflexion to neutral only. Ankle plantarflexion WFL. Left Lower Extremity: Hip flexion lacks the last 25% of AROM. Hip abduction lacks the last 25% of AROM. Knee flexion WFL. Ankle dorsiflexion to neutral only. Ankle plantarflexion WFL. Strength: Right Upper Extremity: Shoulder flexors 3-/5. Shoulder abductors 3-/5. Elbow flexors 4-/5. Elbow extensors 4-/5. Auction Assistant strong. Left Upper Extremity: Shoulder flexors 3-/5. Shoulder abductors 3-/5. Elbow flexors 4-/5. Elbow extensors 4-/5. Auction Assistant strong. Right Lower Extremity: Hip flexors 3-/5. Hip abductors 3-/5. Knee flexors 4-/5. Knee extensors 4-/5. Ankle dorsiflexors 3-/5. Ankle plantarflexors 4-/5. Left Lower Extremity: Hip flexors 3-/5. Hip abductors 3-/5. Knee flexors 4-/5. Knee extensors 4-/5. Ankle dorsiflexors 3-/5. Ankle plantarflexors 4-/5.? Bed Mobility/Transfers: Sit to supine independent Sit to stand independent Stand to sit independent Reclining chair to bed independent Gait: 300 feet independently without an assistive device. Balance: Static Sitting: Normal Dynamic Sitting: Normal Static Standing: Good Dynamic Standing: Good Special Tests: Mobility Limitations Standardized Measure [facility] 6 clicks Basic Mobility Inpatient Short Form: Raw Score: 24? CMS Score: 0% deficit? ? ? 4-Stage Balance Test: Able to maintain feet together and semi-tandem test positions for 10 seconds but is unable to do so with full tandem and one-legged stance signifying fall risk. Assessment: Patient able to tolerate level surface ambulation without an AD of up to 300 fe et without dyspnea nor shortness of breath. May need contnued PT to ensure safe strategies for indoor and outdoor ambulation at discharge destination. Goals: Goals X1 week 1. Supine-Sit independent MET 2. Sit-Supine independent MET 3. Sit-Stand independent MET 4. Stand-Sit independent with no AD MET 5. Bed-Chair independent with no AD MET 6. Chair-Bed independent with no AD MET 7. Independent gait on level surface with use of no AD for at least 300 feet without report of pain nor dyspnea MET 8. Independent stair negotiation while holding onto B rails for at least 3 steps without report of pain nor dyspnea MET 9. Independent with home exercise program MET 10. Good static and dynamic standing balance/tolerance MET DISCHARGE RECOMMENDATIONS: [] ? Home with no services [] [X] ? Home with services.? Patient will benefit from home health PT services in order to progress mobility level using least restrictive assistive ambulatory device, assess home safety, identify additional equipment needs, and establish a functional maintenance program that will increase ability of patient to remain at home. [] ? Home with outpatient PT [] [] ? SNF for continued rehabilitation [] [] ? [facility] [] [] ? SNF versus LTC based on ability to participate and progress [] TREATMENT CODE/TIME: 67891 x 16 minutes beginning at 13:05 PM. Thank you for the opportunity to participate in the care of this patient. Elvie Graves PT, DPT, CLT [facility] [place], [place]
--- NOTE | 2023-06-12 11:17 | W.PM.DS.N ---
Date of service: 06/12/23 Time of Service: 11:17 DS: Diagnosis Discharge Diagnosis (1) Seizure: Status: Acute Discharge Plan Disposition Patient Disposition: Home W/Home Health Services Condition: Stable Discharge Details Reason For Visit: Seizure,Altered Mental Status Admit Date/Time: 06/10/23 22:28 Admit Provider: Landen Roper Attending Provider: Landen Roper Primary Care Provider: Tomer Yang Hospital Course Hospital Course: This is a 68-year-old male patient with history of seizure disorder who has not been compliant with chronic disease management or has seen his primary care provider since 2019 who presented to the emergency department by EMS after experiencing a witnessed seizure at [facility]. It was reported as generalized tonic clonic seizure. When EMS arrived he was still seizing and was given 10 mg of IM midazolam. He was transported to the emergency department for evaluation. Work-up in the emergency department showed a mildly elevated troponin at 72 this did peak at 130 and thought to be due to the seizure and not acute ACS this was discussed with cardiology who is in agreement with that no further cardiology evaluation recommended at this time. He was also found to be hypertensive and was started back on his previous dose of Metroprolol but became bradycardic on that dose so will be discharged on a reduced dose. He was recommended to take a baby aspirin daily in addition to his previously recommended statin. Cholesterol was noted to be 208 with LDL of 149. He was restarted on his Keppra and had no further seizure activity while hospitalized. We did place a neurology consult with Dr. Mares but patient declined her evaluation. We will place an outpatient referral should he decide to change his mind. He will be discharged to home on Keppra 500 mg twice daily in addition to baby aspirin, Metroprolol succinate 50 mg daily, rosuvastatin 20 mg daily. He can discuss further medication/supplementations as recommended per his primary care provider at his outpatient follow-up. He has been hemodynamically stable return to his baseline with no further seizures and no complaints. He was evaluated by physical therapy and recommendations are for home PT evaluation. Given his history of noncompliance with prescription medication and recent seizure this has been ordered. He is discharged to home with home health services discharge is discussed with Dr. Peña Home Meds and New Rx's Prescriptions: New metoprolol succinate 50 mg Tablet Extended Release 24 Hr 50 mg PO DAILY Qty: 30 0RF Continued levetiracetam 500 mg Tablet 500 mg PO BID Qty: 60 0RF rosuvastatin 20 mg Tablet 20 mg PO DAILY Qty: 30 0RF aspirin [Golden Low Dose Aspirin] 81 mg Tablet,Delayed Release (Dr/Ec) 81 mg PO DAILY Hold Instructions: Changed by Provider acetaminophen [Tylenol] 325 mg Capsule 650 mg PO .Q6H PRN Discontinued metoprolol succinate 100 mg capsule,sprinkle,ER 24hr 100 mg PO DAILY gabapentin 300 mg capsule 300 mg PO QHS Qty: 90 0RF losartan 25 mg tablet 25 mg PO DAILY Qty: 90 0RF Rx Instructions: Updated Rx with no refills. Thx hydrochlorothiazide 25 mg tablet 50 mg PO DAILY Patient Comments: TAKE ONE TABLET BY MOUTH ONCE DAILY losartan 50 mg Tablet 50 mg PO DAILY metoprolol succinate 100 mg Tablet Extended Release 24 Hr 125 mg PO DAILY clopidogrel [Plavix] 75 mg Tablet 75 mg PO DAILY Hold Instructions: Changed by Provider ascorbic acid (vitamin C) 500 mg Tablet 500 mg PO BID No Action thiamine HCl (vitamin B1) 100 mg Tablet 100 mg PO DAILY folic acid 1 mg Tablet 1 mg PO DAILY cyanocobalamin (vitamin B-12) [Vitamin B-12] 500 mcg Tablet 500 mcg PO DAILY ferrous sulfate 325 mg (65 mg iron) Tablet 325 mg PO BID Discharge Instructions Instructions: Recurrent Seizures in Adults (DC) Stand Alone Forms: Nursing Discharge Form Referrals: Tomer Yang MD [Primary Care Provider] - 06/19/23 11:00 am (Appointment with be with Miguel Wakefield) Mary Mares MD [ [facility] STAFF PHYSICIAN] - Activity:: Activity as Tolerated Equipment/Supplies:: No Equipment Needed Diet:: As Tolerated Discharge Orders Discharge Orders: Discharge Order (Routine); Ordered 06/12/23 Ordered By: Allison Mancuso Discharge Data Discharge Date/Time-TO BE ENTERED AT DEPARTURE: 06/12/23 13:28 DS: Summary Time Spent with Patient providing and/or coordinating discharge services: Greater than 30 minutes Status at Discharge Functional status at discharge: uses cane/walker Overall status at discharge: patient is progressing back to baseline Mental Status: mental status grossly normal Speech and Movement: speech and movement normal Mood: congruent mood Affect: normal affect Exam Const General: other (older than stated age) Nutritional Appearance: thin Orientation: alert, awake and oriented x3 HENMT Head: normal to inspection and normocephalic Mouth: oral mucosae normal Resp Effort & Inspection: normal respiratory effort Cardio Rate: bradycardic Rhythm: regular rhythm GI Inspection: normal to inspection Palpation: soft Skin General skin exam: no rashes or lesions noted Neuro General: patient alert, patient awake, patient oriented x3 and no focal motor deficits Cognition: normal cognition Speech: speech normal Gait: gait assisted Extrem General: normal to inspection, full ROM and no pedal edema Psych Appearance: grossly normal Mental Status: mental status grossly normal Speech and Movement: speech and movement normal Mood: congruent mood Affect: normal affect Attitude: cooperative Thought Process: normal Thought Content: normal DS: Data Vitals/I&O Vitals and I&O: Vital Signs Temperature 35.8 C L 06/12/23 06:20 Temperature Source Tympanic 06/12/23 06:20 Pulse 46 L 06/12/23 07:28 Pulse Rhythm Regular 06/12/23 08:30 Pulse 63 06/11/23 11:12 Respiratory Rate 18 06/12/23 06:20 Respiratory Effort Normal, Non-Labored 06/12/23 08:30 Respiratory Depth Normal 06/12/23 08:30 Respiratory Pattern Normal 06/12/23 08:30 Blood Pressure 142/69 H 06/12/23 06:20 Blood Pressure Mean 81 06/11/23 11:12 Blood Pressure Position Supine 06/11/23 00:25 Pulse Oximetry 97 06/12/23 06:20 Respiratory End-tidal CO2 34 06/11/23 00:03 Oxygen Delivery Method Room Air 06/12/23 06:20 Oxygen Flow Rate 0 06/12/23 06:20 Pain Level 0 06/12/23 07:57 Comment cc made aware 06/12/23 04:23 Intake & Output 06/11/23 06/11/23 06/12/23 11:59 23:59 11:59 Intake Total 350 / 1350 1000 / 1350 240 / 240 Output Total 400 / 400 Balance -50 / 950 1000 / 950 240 / 240 Weight 52.2 kg 57.4 kg Intake: IV 200 / 1200 1000 / 1200 Oral 150 / 150 240 / 240 Output: Urine 400 / 400 Other: Urine Color Yellow Urine Appearance Clear Clear Clear Urine Odor Normal Normal Comment couldnt measure void could not measure void Voiding Methods Bedside Commode Toilet Toilet Data Completed and Pending Labs on day of discharge: Labs from last 24 hours 06/12/23 06/12/23 06:10 06:10 Sodium 141 Potassium 4.1 Chloride 106 Carbon Dioxide 25.5 Anion Gap 9.5 BUN 7 Creatinine 1.1 Est GFR (CKD-EPI 2020) 72.67 Glucose 84 Hemoglobin A1c 5.3 Calcium 8.9 Magnesium 1.7 L Triglycerides 96 Total Cholesterol 208 H LDL Cholesterol, Calc 149 H HDL Cholesterol 40 PFSH All Active Problems (Updated 06/11/23 @ 19:32 by Glenys Peña MD) Discharge planning issues (Acute) Renal insufficiency (Chronic) Seizure (Acute) Altered mental status (Acute) Post-ictal state (Acute) Restless legs syndrome (RLS) (Acute) Crushing injury of upper extremity (Acute) CAD (coronary artery disease) (Chronic) NSTEMI 01/2020 Right leg pain (Acute) Abnormal transaminases (Chronic) DVT prophylaxis (Acute) Acute on chronic anemia (Acute) Colitis (Acute) Rectal bleeding (Acute) Dizziness (Acute) Acute dehydration (Acute) Essential hypertension (Acute) Blood Pressure Check (Chronic) Hypertension (Chronic) better Medical History (Updated 06/11/23 @ 19:32 by Glenys Peña MD) Anemia C2 cervical fracture Non-ST elevation [place] (NSTEMI) 02/06/20 Palliative care patient Family History Mother Neoplasm BREAST Father Neoplasm PROSTATE Sister Neoplasm HIPS Sister Heart murmur Neoplasm BREAST Grandmother Heart disease Stroke Social History (Updated 03/23/20 @ 16:10 by Nuha Haddad NP) Smoking/Tobacco Use Status: Never Smoking risk assessment performed?: Yes Drug use: Rarely Substance use type: marijuana Do you feel safe at home: Yes Do you feel safe in your relationship?: Yes Additional Social history: lives alone at home [address] in [place] 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 with 3 adult children. only has contact with one son. Time Spent with Patient Time Spent with Patient: 45-69 minutes Time was spent: preparing to see the patient(eg.review tests), ordering medications,tests, procedures, referring, communicating with other health child care center assistant director, counseling the patient and care coordination
--- NOTE | 2023-06-12 12:45 | PDOC.HHF2F ---
Home Health Referral Home Health Orders Clinical synopsis of why skilled professionals are needed: gait training, stability, home safety evaluation Medical diagnosis necessitation home health referral: seizure disorder, hypertension, coronary heart disease Physical Therapist: Check all that apply Increase strength & endurance for safe mobility at home: Ordered To design/establish home maintenance program: Ordered Fall reduction therapy program for patient with history of frequent falls: Ordered Home safety evaluation and teaching/gait training including stair management (if applicable): Ordered Home Bound Status Describe why leaving home would require a considerable and taxing effort: Safety Concerns: describe (seizure disorder with recent seizure) Encounter Date and Reason: I certify that a FTF encounter for this patient was performed on June 12, 2023 and that such encounter was related to the primary reason the patient requires home health services. The encounter was conducted in the following manner: By me as the certifying physician, HYDROLOGIC ENGINEER, PA or By an inpatient physician, HYDROLOGIC ENGINEER or PA during an inpatient stay who communicated findings to me, Certification And Authentication I certify that I composed the above information based on my clinical judgment relating to this patient's medical condition and, if applicable, clinical findings communicated to me by the NPP or inpatient physician who performed the FTF encounter. Name of Provider that will be monitoring home health services: Tomer Yang
[2023-06-12 12:57] VITALS: PULSE 61
--- NOTE | 2023-06-12 14:13 | PDOC.CMDIS ---
Date of service: 06/12/23 Time of Service: 14:14 LACE Index Scoring Tool Questions: Length of Stay (in days): 2 Was the patient admitted via the E.D.?: Yes Comorbidities: Mild Liver/Renal Disease E.D. Visits: 0 Answers: Total Score: 7 Risk of Readmission: Low Risk Care Management Discharge Plan Reason for Hospitalization: Seizure Discharge Plan: Juan Carlos returned home today with new orders for HH PT. He was driven home via private vehicle by a friend. He will follow up with his PCP and discharge plan of care. He is happy to be going home. Patient/Family Education Needs: Review discharge instructions and limitations, discussion of self care needs including ask me three. Services Needed at Discharge: Home Health Care Services (HH PT)
--- NOTE | 2023-06-15 17:57 | INDS_ITS ---
Date of service: 06/12/23 Time of Service: 13:05 PT Notes Visit Reasons: Seizure,Altered Mental Status Physical Therapy Inpatient Discharge Summary Date: 06/12/2023 Dates of service: 06/11/2023 through 06/12/2023 Referring Doctor:? Glenys Peña? PT Orders: PT CONSULT: Limited ability Precautions: Fall. Standard. Activity as tolerated. Seizure precautions in pace. Patient Profile/Admitting Diagnosis:Kelsey Rangel is a 68-year-old male admitted for management seizure, postictal state, CAD, essential hypertension, anemia, and renal insufficiency. PMHX: All Active Problems?(Updated 06/10/23 @ 22:48 by Landen Roper) Renal insufficiency (Chronic) Seizure (Acute) Altered mental status (Acute) Post-ictal state (Acute) Restless legs syndrome (RLS) (Acute) Crushing injury of upper extremity (Acute) CAD (coronary artery disease) (Chronic) NSTEMI? 01/2020Right leg pain (Acute) Abnormal transaminases (Chronic) DVT prophylaxis (Acute) Acute on chronic anemia (Acute) Colitis (Acute) Rectal bleeding (Acute) Dizziness (Acute) Acute dehydration (Acute) Essential hypertension (Acute) Blood Pressure Check (Chronic) Hypertension (Chronic) better Medical History?(Updated 06/10/23 @ 22:48 by Landen Roper) Anemia C2 cervical fracture Non-ST elevation RI (NSTEMI) 02/06/20 Palliative care patient Social History/Home Situation: Lives in an apartment building with one step to enter his apartment.? Ambulatory with no assistive device prior to admission.? Another resident who lives upstairs, helps him out with dish washing.? Still drives,? does his own grocery shopping,? and manages his own laundry. Equipment Owned/DME: None Subjective: With hearing aids on,? patient is able to appropriately respond to provider.? Looking forward to going home this afternoon. Objective: General Observation: Seated on recliner,? FERMIN Rios assisting patient. Mental Status: Alert and oriented x 4 Pain: Denies Vital Signs: WNL ROM: Right Upper Extremity: ? Shoulder Flexion lacks the last 25% of AROM. Shoulder abduction acks the last 25% of AROM. Elbow flexion WFL. Wrist flexion WFL. Functional opening and closing of hand WFL. Left Upper Extremity:? Shoulder Flexion lacks the last 25% of AROM. Shoulder abduction acks the last 25% of AROM. Elbow flexion WFL. Wrist flexion WFL. Functional opening and closing of hand WFL. Right Lower Extremity: Hip flexion lacks the last 25% of AROM. Hip abduction lacks the last 25% of AROM. Knee flexion WFL. Ankle dorsiflexion to neutral only. Ankle plantarflexion WFL. Left Lower Extremity: Hip flexion lacks the last 25% of AROM. Hip abduction lacks the last 25% of AROM. Knee flexion WFL. Ankle dorsiflexion to neutral only. Ankle plantarflexion WFL. Strength: Right Upper Extremity: Shoulder flexors 3-/5. Shoulder abductors 3-/5. Elbow flexors 4-/5. Elbow extensors 4-/5. Labeling Associate strong. Left Upper Extremity: Shoulder flexors 3-/5. Shoulder abductors 3-/5. Elbow flexors 4-/5. Elbow extensors 4-/5. Labeling Associate strong. Right Lower Extremity: Hip flexors 3-/5. Hip abductors 3-/5. Knee flexors 4-/5. Knee extensors 4-/5. Ankle dorsiflexors 3-/5. Ankle plantarflexors 4-/5. Left Lower Extremity: Hip flexors 3-/5. Hip abductors 3-/5. Knee flexors 4-/5. Knee extensors 4-/5. Ankle dorsiflexors 3-/5. Ankle plantarflexors 4-/5.? Bed Mobility/Transfers: Sit to supine independent Sit to stand independent Stand to sit independent Reclining chair to bed independent Gait: 300 feet independently without an assistive device. Balance: Static Sitting: Normal Dynamic Sitting: Normal Static Standing: Good Dynamic Standing: Good Special Tests: Mobility Limitations Standardized Measure [facility] 6 clicks Basic Mobility Inpatient Short Form: Raw Score: 24? CMS Score: 0% deficit? ? ? 4-Stage Balance Test: Able to maintain feet together and semi-tandem test positions for 10 seconds but is unable to do so with full tandem and one-legged stance signifying fall risk. Assessment: Patient able to tolerate level surface ambulation without an AD of up to 300 feet without dyspnea nor shortness of breath.? May need contnued PT to ensure safe strategies for indoor and outdoor ambulation at discharge destination.? Goals: Goals X1 week 1. Supine-Sit independent MET 2. Sit-Supine independent MET 3. Sit-Stand independent MET 4. Stand-Sit independent with no AD MET 5. Bed-Chair independent with no AD MET 6. Chair-Bed independent with no AD MET 7. Independent gait on level surface with use of no AD for at least 300 feet without report of pain nor dyspnea MET 8. Independent stair negotiation while holding onto B rails for at least 3 steps without report of pain nor dyspnea MET 9. Independent with home exercise program MET 10. Good static and dynamic standing balance/tolerance MET DISCHARGE RECOMMENDATIONS: [] ? Home with no services [] [X] ? Home with services.? Patient will benefit from home health PT services in order to progress mobility level using least restrictive assistive ambulatory device, assess home safety, identify additional equipment needs, and establish a functional maintenance program that will increase ability of patient to remain at home. [] ? Home with outpatient PT [] [] ? SNF for continued rehabilitation [] [] ? [facility] [] [] ? SNF versus LTC based on ability to participate and progress [] TREATMENT CODE/TIME: [id number] x 16 minutes beginning at 13:05 PM. Thank you for the opportunity to participate in the care of this patient. Elvie Graves PT, DPT, CLT [facility] [place], [place]
== END 2023-06-12 13:28 | disposition home health service (06) | DRG 101 ==
LOC: ER 06-11 00:25 → ICU 06-11 00:26 → MS 06-11 12:25
PROVIDERS: Internal Medicine; Admitting Provider Family Medicine; Emergency Provider Emergency Medicine; PCP Family Medicine; Visit Provider Family Medicine
DX: G40.909 Epilepsy, unspecified, not intractable, without status epilepticus (principal); I25.10 Atherosclerotic heart disease of native coronary artery without angina pectoris; I12.9 Hypertensive chronic kidney disease with stage 1 through stage 4 chronic kidney disease, or unspecified chronic kidney disease; D64.9 Anemia, unspecified; N18.9 Chronic kidney disease, unspecified; G25.81 Restless legs syndrome; I25.2 Old myocardial infarction; F12.90 Cannabis use, unspecified, uncomplicated; Z79.899 Other long term (current) drug therapy; S00.83XA Contusion of other part of head, initial encounter; W19.XXXA Unspecified fall, initial encounter; Z91.199 Patient's noncompliance with other medical treatment and regimen due to unspecified reason
CPT/HCPCS: 36415; 80048; 80053; 80061; 80307; 82550; 93005; 96365; 97162; 97530; 99222; 99285; 70450; 71045; 72125; 80320; 81003; 81015; 83036; 83735; 84484; 85025; 85610; 85730; 93010; 99233; 99238; J1953; J3480

== ENCOUNTER → 2023-06-11 08:10 | Outpatient (BNVA) | payer MEDICARE, SELFPAY | PROVIDERS: PCP Family Medicine; Referring Provider Family Medicine; Visit Provider Internal Medicine Cardiovascular Disease ==

== ENCOUNTER → 2023-06-11 08:28 | Outpatient (BNVA) | payer MEDICARE, SELFPAY | PROVIDERS: PCP Family Medicine; Referring Provider Family Medicine; Visit Provider Psychiatry & Neurology Neurology ==

== ENCOUNTER 2023-11-25 04:47 | Outpatient (CLI) | payer MEDICARE, SELFPAY ==
[2023-11-25 20:33] LABS: PSA, Screening 1.7 ng/mL (<=4.5)
[2023-11-27 12:14] LABS: Levetiracetam 28.6 mcg/mL
== END 2023-11-25 04:48 | disposition home or self-care (01) ==
LOC: LOS 04:47
PROVIDERS: PCP Family Medicine; Visit Provider Family Medicine
DX: R56.9 Unspecified convulsions (principal); Z79.899 Other long term (current) drug therapy; Z51.81 Encounter for therapeutic drug level monitoring; Z12.5 Encounter for screening for malignant neoplasm of prostate
CPT/HCPCS: 36415; 84153; 80177

== ENCOUNTER 2024-04-08 01:42 | Outpatient (CLI) | payer MEDICARE, SELFPAY ==
[2024-04-08 12:27] LABS: Anion Gap 8.6 mmol/L (3-11); BUN 13 mg/dL (7-18); CO2 32.4 mmol/L (21.0-32.0); CREATININE 1.2 mg/dL (0.70-1.30); Calcium 9.9 mg/dL (8.5-10.1); Chloride 102 mmol/L (98-107); Estimated GFR 65.46 (mL/min/1.73m2); Glucose 91 mg/dL (74-106); Sodium 143 mmol/L (136-145)
== END 2024-04-08 01:43 | disposition home or self-care (01) ==
LOC: LOS 01:43
PROVIDERS: PCP Family Medicine; Visit Provider Family Medicine
DX: E87.1 Hypo-osmolality and hyponatremia (principal)
CPT/HCPCS: 80048; 84153

== ENCOUNTER 2025-05-31 04:06 | Outpatient (CLI) | payer MEDICARE, SELFPAY ==
[2025-05-31 12:22] LABS: HCT 40.5 % (40.0-50.0); HGB 13.1 g/dL (13.5-17.5); MCH 30.2 pg (27.0-33.0); MCHC 32.3 % (32.0-36.0); MCV 93 fL (80-95); MPV 8.8 fL (8.0-11.0); Platelet Count 208 10^3/uL (130-400); RBC 4.34 10^6/uL (4.36-5.78); RDW 13.3 % (11.8-14.1); RDW-SD 45.6 fL; WBC 5.74 10^3/uL (4.4-10.8)
[2025-05-31 12:30] LABS: Anion Gap 9.8 mmol/L (3-11); BUN 15 mg/dL (7-18); CO2 26.2 mmol/L (21.0-32.0); Calcium 9.4 mg/dL (8.5-10.1); Chloride 108 mmol/L (98-107); Estimated GFR 64.65 (mL/min/1.73m2); Glucose 121 mg/dL (74-106); Potassium 3.8 mmol/L (3.5-5.1); Sodium 144 mmol/L (136-145)
== END 2025-05-31 04:07 | disposition home or self-care (01) ==
LOC: LOS 04:07
PROVIDERS: PCP Family Medicine; Visit Provider Family Medicine
DX: E87.1 Hypo-osmolality and hyponatremia (principal); R56.9 Unspecified convulsions; R53.83 Other fatigue
CPT/HCPCS: 36415; 80048; 85027; 80177